=== PATIENT | female | born 1960 | race Caucasian/White ===

== ENCOUNTER → 2020-04-20 | Outpatient (CLI) | payer OTHER, SELFPAY | END | disposition home or self-care (01) | LOC: LABSPEC 10:51 | PROVIDERS: PCP Family Medicine; Referring Provider Family Medicine; Visit Provider Family Medicine | DX: Z20.828 Contact with and (suspected) exposure to other viral communicable diseases (principal) | CPT/HCPCS: 87635; C9803; G2023; U0003 ==

== ENCOUNTER → 2022-05-15 | Outpatient (CLI) | payer OTHER, SELFPAY | END | disposition home or self-care (01) | LOC: LABSPEC 15:18 | PROVIDERS: PCP Family Medicine; Referring Provider Family Medicine; Visit Provider Family Medicine | DX: R50.9 Fever, unspecified (principal); Z20.822 Contact with and (suspected) exposure to COVID-19 | CPT/HCPCS: 87635; U0003; U0005 ==

== ENCOUNTER → 2022-05-17 | Outpatient (CLI) | payer OTHER, SELFPAY | END | disposition home or self-care (01) | PROVIDERS: PCP Family Medicine; Visit Provider Family Medicine | DX: Z20.822 Contact with and (suspected) exposure to COVID-19 (principal) | CPT/HCPCS: 87635; U0003; U0005 ==

== ENCOUNTER → 2023-12-05 | Outpatient (CLI) | payer OTHER, SELFPAY ==
[2023-12-05 15:52] LABS: Bacteria 0 SEEN /hpf (None Seen); Red Blood Cells-Urine 0 SEEN /hpf (0-5)
[2023-12-05 17:56] LABS: Color, Urine Yellow (Yellow); Glucose, Dipstick Normal (Normal); Ketone-Dipstick Negative (Negative); Leukocyte Esterase-Dipstick 100 /ul (Negative); Nitrite-Dipstick Negative (Negative); Occult Blood-Urine Negative /ul (Negative); Protein-Dipstick Negative (Negative); Specific Gravity, Urine 1.025 (1.002-1.030); Urine Bilirubin Dipstick Negative (Negative); Urine Clarity Clear (Clear); Urine Urobilinogen Normal (Normal)
[2023-12-05 18:09] LABS: Calcium Oxalate Crystals Ur 1+ /hpf (<or=2+); Mucous, Urine RARE /hpf (<or=2+); Squamous Epithelial Cells - UA 0-5 SEEN /hpf (5-10); White Blood Cells 5-10 SEEN /hpf (0-5)
== END | disposition home or self-care (01) ==
PROVIDERS: PCP Family Medicine; Visit Provider Physician Assistant Surgical
DX: R30.0 Dysuria (principal)
CPT/HCPCS: 81001; 87086; 87088

== ENCOUNTER → 2024-09-04 | Outpatient (CLI) | payer OTHER, SELFPAY ==
[2024-09-04 15:53] LABS: Color, Urine Yellow (Yellow); Glucose, Dipstick Normal (Normal); Ketone-Dipstick Negative (Negative); Leukocyte Esterase-Dipstick 100 /ul (Negative); Nitrite-Dipstick Negative (Negative); Occult Blood-Urine 25 /ul (Negative); Protein-Dipstick 15 mg/dl (Negative); Specific Gravity, Urine 1.015 (1.002-1.030); Urine Bilirubin Dipstick Negative (Negative); Urine Clarity Clear (Clear); Urine Urobilinogen Normal (Normal)
[2024-09-04 16:10] LABS: Bacteria 2+ /hpf (None Seen); Mucous, Urine 1+ /hpf (<or=2+); Red Blood Cells-Urine 0-5 SEEN /hpf (0-5); Squamous Epithelial Cells - UA 0-5 SEEN /hpf (5-10); White Blood Cells 10-25 SEEN /hpf (0-5)
== END | disposition home or self-care (01) ==
PROVIDERS: Referring Provider Physician Assistant Surgical; Visit Provider Physician Assistant Surgical
DX: R30.0 Dysuria (principal)
CPT/HCPCS: 81001; 87077; 87086; 87088; 87186

== ENCOUNTER → 2025-04-01 | Outpatient (CLI) | payer OTHER, SELFPAY ==
--- OUTSIDE RECORDS SUMMARY | 2025-04-01 12:49 | XMS RPT_ITS | CCD ---
Author Organization [facility] Care Team Providers Care Sanitation Manager Name Role Phone Dr. Hemal Cortez Primary Care Provider Dr. Hemal Cortez Referring Provider WANDY Girard Attending Provider Jose MCGHEE, Hemal Bradshaw Primary Care Provider Hemal Garcia MD Primary Care Provider Cj Gann MD Primary Care Provider [phone] CINDI STOVER Referring Unavailable CJ GANN Primary Care Unavailable NIURKA FRANCOIS Attending Unavailable WISWELL NIURKA Referring Unavailable GARCIA HEMAL K Primary Care Unavailable WISWELL, NIURKA Referring Unavailable GARCIA HEMAL K Primary Care Unavailable NIURKA FRANCOIS Attending Unavailable JOSE HEMAL K Primary Care Unavailable Sergei Girard Attending Unavailable Chelsea Kirkland Primary Care Unavailable Chelsea Kirkland Referring Unavailable Chelsea Kirkland Primary Care Unavailable Sergei Girard Attending Unavailable Sergei Girard Referring Unavailable Sergei Girard Attending Unavailable Jaxon SABA, Sergei Attending Unavailable Chelsea Kirkland Primary Care Unavailable Chelsea Kirkland Referring Unavailable Ashley Marino Attending Unavailable Sergei Girard Attending Provider [phone] Allergies Allergy Classification Reported Allergen(s) Allergy Type Date of Onset Reaction(s) Facility (6 sources) Grass pollen; Translations: [GRASS POLLEN] Propensity to adverse reactions 5 Intolerance [facility] Work Phone: (6 sources) Pollen; Translations: [POLLEN] Propensity to adverse reactions 5 Intolerance [facility] (6 sources) Ragweed; Translations: [RAGWEED] Propensity to adverse reactions 5 Intolerance [facility] (1 source) Nitrofurantoin Drug Allergy 11-27-202 4 [facility] Repository (1 source) Nitrofurantoin Drug Allergy 5 Other [facility] Comment on above: headache Medications Current Medications Medication Drug Class(es) Dates Sig (Normalized) Sig (Original) Loratadine (5 sources) LORATADINE (CLAR ITIN ORAL) Take by mouth. Active LORATADINE (CLAR ITIN ORAL) Take by mouth. 0 Active nitrofurantoin, macrocrystals 25 mg / nitrofurantoin, monohydrate 75 mg oral capsule (4 sources) Nitrofuran Antibacterial Start: 04-01-2025 take 1 capsule by mouth every twelve hours at mealtime Nitrofurantoin Monohyd/M-Cryst 100 mg capsule Active 1 NMA PO Q12H 14 April 01, 2025 12:00am April 07, 2025 12:00am administer with a meal/food; swallow whole; do not open, crush, dissolve , or chew Start: 09-04-2024 End: 09-11-2024 take 1 capsule by mouth every twelve hours at mealtime Nitrofurantoin Monohyd/M-Cryst 100 mg capsule Discontinued 1 NMA PO Q12H 14 7 September 04, 2024 1:00am September 10, 2024 1:00am September 11, 2024 1:09am administer with a meal/food; swallow whole; do not open, crush, dissolve , or chew Start: 12-05-2023 End: 12-13-2023 take 1 capsule by mouth every twelve hours at mealtime Nitrofurantoin Monohyd/M-Cryst 100 mg capsule Discontinued 1 NMA PO Q12H 14 December 06, 2023 11:47am December 12, 2023 1:00am December 13, 2023 1:04am administer with a meal/food; swallow whole; do not open, crush, dissolve , or chew Completed/Discontinued Medications Medication Drug Class(es) Dates Sig (Normalized) Sig (Original) azithromycin 250 mg oral tablet (1 source) Macrolide Antimicrobial Start: 11-03-2023 End: 12-05-2023 Azithromycin 250 mg tablet Discontinued 0 PO .COMPLEX 6 November 03, 2023 1:00am December 05, 2023 4:12pm For 250 mg dose pack: take 500 mg today (day 1), then 250 mg for 4 days (days 2-5) PO cyanocobalamin, vitamin B-12, (VITAMIN B12 ORAL) (4 sources) End: 06-18-2024 cyanocobalamin, vitamin B-12, (VITAMIN B12 ORAL) Take by mouth. 06/18/2024 Discontinued cyanocobalamin, vitamin B-12, (VITAMIN B12 ORAL) Take by mouth. Active cyanocobalamin, vitamin B-12, (VITAMIN B12 ORAL) Take by mouth. 0 Active loperamide hydrochloride 2 mg oral capsule (7 sources) Opioid Agonist Start: 09-06-2021 End: 12-05-2023 Loperamide 2 mg capsule Discontinued NMA PO September 06, 2021 1:00am December 05, 2023 4:12pm Start: 09-06-2021 Loperamide Act robert EACH PO September 06, 2021 1:00am End: 06-18-2024 loperamide HCl (LOPERAMIDE O RAL) Take by mouth. 06/18/2024 Discontinued loperamide HCl ( LOPERAMIDE ORAL) Take by mouth. Active loperamide HCl ( LOPERAMIDE ORAL) Take by mouth. 0 Active Problems Active Problems Problem Classification Problem Date Documented Date Episodic/Chronic Cancer of cervix (7 sources) Atypical squamous cells of undetermined significance on cervical Papanicolaou smear; Translations: [Atypical squamous cells of undetermined significance on cytologic smear of cervix (ASC-US)] Onset: 07-15-2018 07-15-2018 Episodic Chronic obstructive pulmonary disease and bronchiectasis (2 sources) Bronchitis, not specified as acute or chronic; Translations: [Bronchitis] Onset: 11-03-2023 11-03-2023 Episodic Diseases of mouth; excluding dental (5 sources) Aphthous ulcer of mouth; Translations: [Recurrent oral aphthae] Episodic Genitourinary symptoms and ill-defined conditions (2 sources) Dysuria; Translations: [Dysuria] Onset: 10-01-2024 12-05-2023 Episodic Hemorrhoids (5 sources) Hemorrhoids; Translations: [Unspecified hemorrhoids] 04-23-2024 Episodic Immunizations and screening for infectious disease (20 sources) Patient encounter status; Translations: [Encounter for screening for COVID-19] Onset: 09-19-2009 Resolved: 10-03-2011 Episodic Menopausal disorders (5 sources) Menopausal symptom; Translations: [Menopausal and female climacteric states] Onset: 09-19-2009 09-19-2009 Chronic Other upper respiratory infections (1 source) Sinusitis; Translations: [Chronic sinusitis, unspecified] 11-03-2023 Chronic Other upper respiratory infections (5 sources) Upper respiratory infection; Translations: [Acute upper respiratory infection, unspecified] Episodic Sexually transmitted infections (not HIV or hepatitis) (1 source) Human papilloma virus deoxyribonucleic acid test positive, high risk on vaginal specimen; Translations: [Vaginal high risk human papillomavirus (HPV) DNA test positive] 06-29-2024 Episodic Substance-related disorders (5 sources) Tobacco user; Translations: [Nicotine dependence, unspecified, uncomplicated] Onset: 10-25-2009 10-25-2009 Chronic Past or Other Problems Problem Classification Problem Date Documented Da te Episodic/Chronic Gastrointestinal hemorrhage (5 sources) Rectal hemorrhage; Translations: [Hemorrhage of anus and rectum] Onset: 08-16-2011 08-16-2011 Episodic Nonmalignant breast conditions (5 sources) Solitary cyst of breast; Translations: [Solitary cyst of unspecified breast] Onset: 03-26-2006 Resolved: 10-23-2012 10-23-2012 Episodic Results Test Name Value Interpretation Reference Range Facility Urine Cultureon 09-06-2024 [facility] Escherichia coli Okay Count >100,000 Escherichia coli: REACTION Ampicillin Islt JOE >=32 Ampicillin+Sulbac Islt JOE 16 I ceFAZolin Islt JOE <=4 S Cefepime Islt JOE <=0.12 S cefTRIAXone Islt JOE <=0.25 S Ciprofloxacin Islt JOE 1 R B-Lactamase Extended Susc Islt NEG Gentamicin Islt JOE >=16 R Imipenem Islt JOE <=0.25 S levoFLOXacin Islt JOE 1 I Nitrofurantoin Islt JOE <=16 S Pip+Tazo Islt JOE <=4 S Tobramycin Islt JOE 8 R TMP SMX Islt JOE >=320 R Normal [facility] Comment on above: Performed By: #### M 100.2200, L400.0001 #### [facility] Laboratory [facility] [place], [address] Urgent Care Visit Reporton 1 11-04-2023 Urgent Care Visit Report [facility] [address], [address] [place] [address] OFFICE VISIT Date of Service: 09/04/24 MR#: [id number] Acct: [id number] Name: ROCKY KIRAN Rep #: [id number] : 1960 Provider: WANDY Gandara Age/Sex: 64/F Location: [facility] Status: Signed Intake Vital Signs 12/05/23 15:13 09/04/24 12:52 Height 5 ft 1 in Weight: 149 lb BMI 28.1 BP 128/86 H 120/76 Blood Pressure Location Lt brachial Lt brachial Position Sitting Sitting Respiration 16 12 Pulse 104 H 72 Pulse Source Monitor Monitor Temp 98.2 F 97.7 F L Temp Source Temporal Oral Pulse Oximetry (%) 98 97 Oxygen Delivery Method room air Intake Visit Reasons: Urinary tract infection Allergies No Known Allergies Allergy (Verified 09/04/24 12:54) PFS Medical History Encounter for screening for COVID-19 URI (upper respiratory infection) Family History Mother Cancer Father Cancer Social History Smoking Status: Current every day smoker Tobacco: How many years used: 20 alcohol intake: current alcohol intake frequency: 0-2 drinks per day HPI HPI Details: ROCKY KIRAN, is a 64 F who presents to the office today for complaint of dysuria and increasing urgency/frequency for the past 2 days. Patient states that the symptoms are similar to the last time that she had a UTI. Patient denies fever, chills, sweats. No nausea, vomiting, diarrhea. No hemoptysis, shortness of breath or difficulty breathing. No pelvic or abdominal pain. No other associated symptoms or alleviating/aggravati ng factors. ROS Const Constitutional: Positive for other (ROS negative x6 except what was placed in HPI) Exam Const General: cooperative and healthy appearing Resp Effort Inspection: normal respiratory effort Auscultation: Bilateral: Clear to Auscultation Cardio Rate: regular rate Rhythm: regular rhythm GI Auscultation: normal bowel sounds General: No CVA tenderness Psych Appearance: grossly normal Mental Status: mental status grossly normal Coding Level of Care Code Off vis,est,level 3 Diagnoses Dysuria R30.0 Assessment and Plan Assessment and Plan (1) Dysuria: Status: Acute Plan: Macrobid as prescribed today. Encouraged to get plenty of rest, drink lots of clear liquids, and use Tylenol or Ibuprofen (unless contraindicated) for fever and comfort. Patient also educated on other symptomatic management techniques. To be seen in 7-10 days if no improvement; sooner if worsening of symptoms. Patient advised of potential red flags and when appropriate to report to the ED. Patient verbalized understanding and agreement with all the above. 09/04/24 1258 Date Sergei Tipton Signature: Date (if applicable) CC: Normal [facility] Urinalysis, Completeon 09-04 BACTERIA 2+ /hpf Normal None Seen [facility] Comment on above: Order Comment: CLEAN CATCH Performed By: #### M 100.2200, L400.0001 #### [facility] [address] [place], [address] EPI,SQUAMOUS 0-5 SEEN Normal 5-10 [facility] Comment on above: Order Comment: CLEAN CATCH Performed By: #### M 100.2200, L400.0001 #### [facility] [address] [place], [address] Mucus Ql (Urine sed) 1+ /hpf Normal [facility] Comment on above: Order Comment: CLEAN CATCH Performed By: #### M 100.2200, L400.0001 #### [facility] [address] [place], [address] RBC 0-5 SEEN Normal 0-5 [facility] Comment on above: Order Comment: CLEAN CATCH Performed By: #### M 100.2200, L400.0001 #### [facility] [address] [place], [address] WBC 10-25 SEEN Normal 0-5 [facility] Comment on above: Order Comment: CLEAN CATCH Performed By: #### M 100.2200, L400.0001 #### [facility] [address] [place], [address] SURGICAL PATHOLOGYOrdered By : Graham Steinberg on 06-30-2024 Case Report Surgical Pathology Report Case: [id number] Authorizing Provider: Niurka Francois MD Collected: 06/29/2024 03:56 PM Ordering Location: OB/Gynecology Received: 06/29/2024 04:44 PM Pathologist: Graham Steinberg MD Specimens: A) - Endocervix, Curettings, ECC B) - Cervix, Biopsy, 12 [facility] Work Phone: Clinical History y8lifLEsHDAfh6eaVKEl b PQoKtPvJpYzJfIpGoo6NK XakkW7Muq7PAFrIVlcwF9 zOVFpDWmeH0bimoIrqUKr CYIoEMo7iC2bsPdfqO3eG kLwVwGaILKDJ2tSEFPba7 FrqBy4RAWTHIMjgNFiPF2 = [facility] Work Phone: FINAL DIAGNOSIS j9kzjQCfKKWajJHrJVfe M gazntHyEUTqyBAgY5Dvry klOIfpFV2sUN6gtNkjjXT xhQOqEIMdNyOyj4efd246 uVJay2maHDETwvehhAi4x WeoF80py6A0CezvD89sxJ GwXQS3LUHpXDKohESbZMI nVAI5ZMAwzRMeE9srPAVo TS2ospeyNPofRTmsXQIpu GW1YXEaqLCcJ4TfTZXjEY tfWEQwoxb8GnJzXd7rkCB yeTcyMFxwYXJkXHBsYWlu YZEpZwFesLQeDWRhUM8vZ I0zv9GoesDqwYqbA2VkZU A2TYnxIbvyRDXoPaNqeVM kDS2dYLYsqfdweoHkqEJm lB15nrZnusIsTG2bn3Xqs uMiA8RpILjkIB8nlVqxty HqcYb4hAWtzZHeYswaGKZ ccGFyXHBhclxiIEIuIENl oeDehYdcODWcSFT9UENtI EFwr7ZkuHpbjHZnOBYcPK ZtboRxTH3QWI3oF81ck3G 8EH0yaBVioLJjf4RdZquz YXJccGFyfQ== [facility] Work Phone: Gross Description d7bglHFtUEAbmAAZCPU0 M ZTzOT7zqMnjuUl5jRweQM QeyvK8ePRxKCdwt1dwNSA 6y0ssmaKTFwviISClFD8a MXnwUWMtTE8xIsXhJCQvM mYxXHBhcGVydzEyMjQwXH TduGYmuMP3RUZeJW1djur rDUppCJmoCYEybkA3XTOw uIUpR0RmEVQcZD4lmqmaQ YN9QHUYSgdiXy1rwMYetF tcZjFcZmNoYXJzZXQwXGZ mc2juseYMqsafdFf1jQ4D VIKhX4JjYR4Vx0oxIUTga RTfTYG3QIcpz4giUDpkPT N9UXOwGYUmLXFkAS7FJgO zUMumYYhnMYP5AoW2NYm2 FBMVBYFkVSB2Lod9VnVwR Un5WWztBDwmtDLlFSUrOL QyLXNvLMitgbW1j7unIAK koUFnAZP6GMqmz1mvVQki IHT2YBEvZaBcNNFjJB9DP tYjBCydERfkKUC6TqQ5YO n9PFRDYlCnTuWmIJnlOVD jORRwQEn3EZd3RYoQYyGl Gvw9JqA8JBY6XcO8BQBmD iBcXHQgMiBcXHNzIDMgXF cwgTZsVN8ioTsqZIEeXX4 BWUZnUXpnFEPjAzAySX8x SZ4zf4XschVghUtwV7GbC WV5nS4kf2njdBOjhEhxLE IgDQpccGFyZCANClxwbGF pblxsdHJjaFxmczIyXGVw kZNUAOU1RX3fDCWNBmoci HRbADOek3LfOUodjAusZL NhMzAgDQpcZnMyMCBSZWN dhIZpJDRpxyLuf5KnHSti biBhcmUgbXVsdGlwbGUgd XQyPJdjyQQdGFNxe9N6MZ TpWXRqITS3ISWeC30kzxZ uRT4mLBNhr4Y8LDMeK0pi IIidrTifOoM6mqYhYwfqg VCjCeIuaRF2JI6sHHVjLe EJn9PncMm5QTJ8Lz7lgAC rAMSlryWbusUuI8Erk2W5 oSNeWYfkPGQgD20hg1NVi 4Azk5khlOsuo1GisYBlVZ 2kyGVhWC6Uw4mlKNUuzJC cAJZ8VGsea3taIGsyUVB6 RWHvBbPnRTTrFC9LTxBhS KrfZXegWCK7AxW5RTi3IH BPVlMgIiAgNTgzNDQyMTY yVGb1FFh3PQtVLjVrOos1 BzB9IDskFYW1WZLfMhWeQ HQgMiBcXHNzIDMgXFxmbC DtPL3zcKnyPXNkVHKiMMM 9HMEuqLSLt6UyJZPuYLjr QbMxVxGRNdOBFAQ5jDtnP JEcy6WgfRnmOMNmPWlxzT FyZCANClxwbGFpblxsdHJ jaFxmczIyXGVwaWNOZXN0 CG2bTEHGLdktiCSoTOTqn 2IzMFxlcGljWHNiMzAgDQ pcZnMyMCBSZWNlaXZlZCB thrXhu1JzBJscnjIhuvYs hPKjhMzvsARfwEggK9VaB X0lRXIbcw83dYl1MRxtk7 9woSY8yCNxpBCuKRzvvbG mPSFjtllgkT5vDF53NKvr SN4jHPkuOR8wLFAdOzZLm 6UjxBf1QTQ5Rd0iuFRdKF ZmesUgacNnC3Pcq2K7zQP uIFxwYXIgDQpccGFyZFxs qWPvJWKcOPohuSIsHL6VV 4Qcm0NfBSzpxTqwFSHpv4 4orDPzIs3gvBMiJJE5BZC sZXZlbGFuZCBDbGluaWMs OHo0TIVqSUYiyPdbPFU2E Z3pWPTkEVZokJKwFRrrC7 vpWOAwOZJapBVxWW1ZYBZ hciANClxzYTMwXGVwaWNY s4BdBUFYVlDLXeUmEX0sX h0oSOD7CDl3FGVhVI0ATp dyyWdcIsWtjOCdQjG9MFB tsVAxWJY7QY6zpYtwKGKz Q7FrR6PdmzJ6LMTlhcKBS cyzRNHnBA6AVZWiHtBfRC p9 [facility] Work Phone: Performing Lab b7bkuAMwTSQsaGPoGyPu M IKoIBLcq4sjQOUtwJAdSx EwMzNcZnRuYmpcdWMxXGR nPgVzn3ahw167aYQjc2os CQVnBvE3jLLwMZXqsQLmV 960ZNEpNRjxy8wlp8MlNM YxaAWru2Z5QSZUqlklqEw 5eWncY74xk1N6LeelV6pb KFBcWGYvE3GuTI5qVPMtO xq4XEA2CIE7LTDyAZDcB3 LzTW1hSNGpnTBlFFm2k9k vqAajXDQaBHD2q4cnNDnj qjYyQJ0adw9upBz1i8vei zEgRGVmYXVsdCBQYXJhZ3 LvbPraZu4rpOg5dWpuJvx pQGF3Pzp2FA5tdm54ywd1 dSnkGTAkwmcoPzI0KRiqC KYcipyoLNy5WThxYEGhdH B2MYJsiPJfS0VqQEdhEB7 fkyd8KYD3WRkoHTSdUjY5 NDBcaGVhZGVyeTcyMFxmb 270FOP9XtOwZY6uP5Wld6 Y8iR5siECaZOTmpYAyCzA kAFSugq2xvRHzLYbwt6Al NBP5khC5jOKhpQWwGSPwP U15Qopvp5ItCpayy0EqB5 9rwGU8CTsyf2ckFI1fPsL 4ssYmTWsdn5nsyL6sTfP8 UHuqDG0gZO8dUVQowN8yy mxjXHBnYnJkcmhlYWRccG xtkzOqCt5pyXcrOGD3YEy xF4nqkH4pArR6YXreN4je vG5sWFh8ARcdvUS0PFUzg E9cEI8iphiim3smNUgrSI joPMVxzfD6fxCdKDYqoLH tI6IfaW9zUZWrOF3qfhbk d7jzHVU8DSliMQDkLDK7A mZlRBEwn2Ybfkf1DrAfb7 PdfDPiROqvI96pw960HXL rnwImX2pokCLfdrbfuRVc tsuqUDnkpaD3FONrZBIlB WluXGYxXGZzMjBcbGFuZz EwMzNcaGljaFxmMVxkYmN lNHIgJLjrG7enKqCzUhCf SSAHbXYorr5vePrhUWmwo LMcpRRgdRC6pW2mEKGfnf Sqeg8bOIMykIOApAC5KYf ngcRzW9ubiuzoDLJ1BXDq BHB1C0ydWUBNseGzBXEwE CFhwEOhQJTEFXV9KGA2NT JoPDYYWWHvGEL1BVM1LQJ wOTRccGFyXHBhclxwYXJk XHBsYWluXGYwXGZzMjRcc AkfnE3rMpZcBfDtCAneWA 3vRUSfG6xipQQfQJTfCJD jZ4nxOgZvdY5sxHqvRRyq ZjJcZnMyMFxsdHJjaCBMY LJimaK4n8E4NCjiiQCkcn xmMVxmczIwXGxhbmcxMDM uWJjsU4wcDzVmVOTdnIjw HTmjs2JnOQRzXMRgCgTqL JfmGPZ8z1H2DRtxpSNkvr ZEQnNCVP9mmDHvtwaqMJ4 ELlxwbGFpblxmMVxmczIy SDoyelzsRFViRHqwA6svC oXqAGEzaRymFRsji8RtER YxXGZzMjJccGFyfQ== [facility] Work Phone: [facility] Work Phone: [facility] 06-29-2024 CNOV Office Visit (OBGYWM ) Alona KIRAN MARCH ([id number]) 1960 F Date Time Provider Department 06/29/24 3:20 PM NIURKA FRANCOIS During your visit today, we recorded the following information about you: Blood pressure Weight 110/72 70.2 kg Niurka Francois MD 07/06/2024 8:18 AM Signed Scientific Director offered: Patient declines. Esther is a 63 year old who presents today for a colposcopy. The patient's last pap smear was LGSIL and Positive HPV from May 2024. Patient has a history of abnormal pap: Yes. The patient has had prior treatment: Colposcopy. test: n/a, post menopausal UNIVERSAL PROTOCOL / SAFETY CHECKLIST Procedure to be Performed: Colposcopy with Possible Biopsies Sign In: A Moment of CARE was completed. Personnel directly involved with the procedure wore the appropriate PPE (Personal Protective Equipment). Patient/Surrogate Stated/Verified: PATIENT VERIFIED(optional for EMERGENT procedures): Patient name, Date of , Relevant allergies, and The intended procedure Time Out Communication: Intended patient and procedure match the source documents. Consent documented and matches the intended procedure. Sign Out: SIGN OUT (optional for EMERGENT procedures): All specimen containers correctly labeled. All instruments, equipment, possible retained foreign bodies accounted for. Post-procedure follow-up management communicated and Plan of Care Visit completed when applicable. PROCEDURE: EXTERNAL GENITALIA: Normal in appearance without lesions VAGINA: Normal in appearance without lesions CERVIX: Speculum placed in vagina and excellent visualization of cervix achieved. Cervix swabbed x 3 with 3% acetic acid solution. Cervix grossly normal. Squamocolumnar junction visualized. Possible faint acetowhite changes noted 12 o'clock. BIOPSY: Done at 12:00 ECC: done HEMOSTASIS: Obtained with pressure Procedure Summary: Patient tolerated procedure well and colposcopy was adequate. ASSESSMENT: HPV effect PLAN: Specimens labeled and sent to Pathology. Will notify patient of results in 1-2 weeks. Post-procedure instructions reviewed and written material given to the patient. DO Odalys Chow Amanda, MA 06/29/2024 3:10 PM Signed YOUR RECOVERY It may take a few weeks for your cervix to heal. While your cervix heals, you may have: - Vaginal bleeding (less than a normal menstrual period) - Mild cramping - A brown-black vaginal discharge (similar to coffee grounds) which is a result of the paste used to help stop bleeding from the procedure Do NOT put anything in the vagina for 1 week after your colposcopy if your doctor does a biopsy of your cervix. This includes sex, tampons, and douches. If you have any discomfort, you may take an over the counter pain medication (motrin, advil, ibuprofen, tylenol, etc). If this does not relieve your discomfort, contact your doctor's office for a prescription strength pain medication. It is okay to wear a sanitary pad until the discharge and spotting stops. RISKS Although problems seldom occur with colposcopy, there can be some complications. You may feel faint during and shortly after the procedure as well as have some bleeding and vaginal discharge after the procedure. There is also a risk of infection after the procedure. These complications are rare and can be easily treated. You should contact you doctor is you have any of the following: - Heavy bleeding (more than your normal period) - Bleeding with clots - Severe abdominal pain - Fever (more than 100.4F) - Foul smelling vaginal discharge RESULTS If a biopsy was taken, we will have the results of your biopsy in 1-2 weeks. If you do not hear the results of your biopsy after 2 weeks, please contact your physicians office for the results. Depending on the biopsy results, your doctor will determine your follow up plan which may include further testing or treatments. STAYING HEALTHY After the procedure, you will need to see your doctor for follow up visits during the year. At these visits your doctor will check the health of your cervix with a pap smear. After three normal pap smears, your doctor will allow you to return to having exams once a year. If you have another abnormal pap smear, you may need closer follow up for longer or you may need additional treatment. By making a few lifestyle changes after the procedure, you can help protect the health of your cervix: - Have regular pelvic exams and pap smears as ordered by your doctor. - Stop smoking as smoking increases your risk of developing a cancer of the cervix - If you have more than one sexual partner, limit your number of partners and use condoms to reduce your risks of STDs. If you have any additional questions, please contact your doctor's office. Referring Provider: CINDI STOVER [[id number]] Allerg (more content not included)... Normal [facility] SURGICAL PATHOLOGYon 024 CASE REPORT Normal [facility] Comment on above: Order Comment: Speci men Type: BLOOD SPECIMEN Ordering Facility: [facility] Address: [address] [place] [address] Result Comment: Surg [facility] Pathology Report Case: [id number] Authorizing Provider: Niurka Francois MD Collected: 06/29/2024 03:56 PM Ordering Location: OB/Gynecology Received: 06/29/2024 04:44 PM Pathologist: Graham Steinberg MD Specimens: A) - Endocervix, Curettings, ECC B) - Cervix, Biopsy, 12 Performed By: #### 2 4331-1 #### [facility] CLIA [id number] [address] [place] [address] [place] [facility] CLIA [id number] [place] [address] [place] #### [id number] #### [facility] CLIA [id number] [address] [place] [address] [place] CLINICAL HISTORY Positive Normal [facility] Comment on above: Order Comment: Speci men Type: BLOOD SPECIMEN Ordering Facility: [facility] Address: [address] [place] [address] Performed By: #### 2 4331-1 #### [facility] CLIA [id number] [address] [place] [address] [place] [facility] CLIA [id number] [address] [place] [address] [place] #### [id number] #### [facility] CLIA [id number] [address] [place] [address] [place] FINAL DIAGNOSIS Normal [facility] Comment on above: Order Comment: Speci men Type: BLOOD SPECIMEN Ordering Facility: [facility] Address: [address] [place] [address] Result Comment: A. E ndocervix, curettage: ---Benign squamous and endocervical glandular epithelium. B. Cervix, at 12:00, biopsy: ---Benign squamous mucosa. Performed By: #### 2 4331-1 #### [facility] CLIA [id number] [address] [place] [address] [place] [facility] CLIA [id number] [address] [place] [address] [place] #### [id number] #### [facility] CLIA [id number] [address] [place] [address] [place] FINAL PERFORMING LAB Normal [facility] Comment on above: Order Comment: Speci men Type: BLOOD SPECIMEN Ordering Facility: [facility] Address: [address] [place] [address] Result Comment: Diag nostic interpretation performed at [facility], [address] [place] [address] CLIA# [id number] Bleach Mixer: David Olvera M.D. Performed By: #### 2 4331-1 #### [facility] CLIA [id number] [address] [place] [address] [place] [facility] [facility] CLIA [id number] [address] [place] [address] [place] #### 3016-3 #### [facility] CLIA [id number] [address] [place] [address] [place] GROSS DESCRIPTION Normal [facility] Comment on above: Order Comment: Speci men Type: BLOOD SPECIMEN Ordering Facility: [facility] Address: [address] [place] [address] Result Comment: A. E ndocervix, Curettings Received in formalin are multiple kong-white, soft feathery segments of tissue aggregating to 0.7 x 0.5 x <0.1 cm. Totally submitted in one cassette. B. Cervix, Biopsy Received in formalin are multiple pieces of kong-white, soft tissue aggregating to 0.8 x 0.1 x 0.1 cm. Totally submitted in one cassette. Gross examination performed at [facility], [address] [place] [address] FFS 06/29/2024 9:52 PM Performed By: #### 2 4331-1 #### [facility] CLIA [id number] [address] [place] [address] [place] [facility] [id number] [address] [place] [address] [place] #### 3016-3 #### [facility] CLIA [id number] [address] [place] [address] [place] CBC panel Auto (Bld)on 06-01 Erythrocyte distribution width (RBC) [Ratio] 12.8 % Normal 11.5-15.0 [facility] Comment on above: Order Comment: Speci men Type: BLOOD SPECIMEN Ordering Facility: [facility] Address: [address] [place] [address] Performed By: #### 2 4331-1 #### [facility] CLIA [id number] [address] [place] [address] [place] [facility] [id number] [address] [place] [address] [place] #### 3016-3 #### [facility] CLIA [id number] [address] [place] [address] [place] Hematocrit (Bld) [Volume fraction] 42.9 % Normal 36.0-46.0 [facility] Comment on above: Order Comment: Speci men Type: BLOOD SPECIMEN Ordering Facility: [facility] Address: [address] [place] [address] Performed By: #### 2 4331-1 #### [facility] CLIA [id number] [address] [place], [place] [address] [place] [facility] CLIA [id number] [address] [place] [address] [place] #### 3016-3 #### [facility] CLIA [id number] [address] [place] [address] [place] Hemoglobin (Bld) [Mass/Vol] 13.9 g/dL Normal 11.5-15.5 [facility] Comment on above: Order Comment: Speci men Type: BLOOD SPECIMEN Ordering Facility: [facility] Address: [address] [place] [address] Performed By: #### 2 4331-1 #### [facility] CLIA [id number] [address] [place] [address] [place] [facility] [id number] [address] [place] [address] [place] #### 3016-3 #### [facility] CLIA [id number] [address] [place] [address] [place] MCH (RBC) [Entitic mass] 30.2 pg Normal 26.0-34.0 [facility] Comment on above: Order Comment: Speci men Type: BLOOD SPECIMEN Ordering Facility: [facility] Address: [address] [place] [address] Performed By: #### 2 4331-1 #### [facility] CLIA [id number] [address] [place] [address] [place] [facility] CLIA [id number] [address] [place] [address] [place] #### 3016-3 #### [facility] CLIA [id number] [address] [place] [address] [place] MCHC (RBC) [Mass/Vol] 32.4 g/dL Normal 30.5-36.0 [facility] Comment on above: Order Comment: Speci men Type: BLOOD SPECIMEN Ordering Facility: [facility] Address: [address] [place], [place] [address] Performed By: #### 2 4331-1 #### [facility] CLIA [id number] [address] [place] [address] [place] [facility] CLIA [id number] [address] [place] [address] [place] #### 3016-3 #### [facility] CLIA [id number] [address] [place] [address] [place] MCV (RBC) [Entitic vol] 93.1 fL Normal 80.0-100.0 [facility] Comment on above: Order Comment: Speci men Type: BLOOD SPECIMEN Ordering Facility: [facility] Address: [address] [place] [address] Performed By: #### 2 4331-1 #### [facility] CLIA [id number] [address] [place] [address] [place] [facility] CLIA [id number] [address] [place] [address] [place] #### 3016-3 #### [facility] CLIA [id number] [address] [place] [address] [place] Nucleated RBC (Bld) [#/Vol] 10*3/uL Normal <0.01 [facility] Comment on above: Order Comment: Speci men Type: BLOOD SPECIMEN Ordering Facility: [facility] Address: [address] [place], [place] [address] Performed By: #### 2 4331-1 #### [facility] CLIA [id number] [address] [place] [address] [place] [facility] CLIA [id number] [address] [place] [address] [place] #### 3016-3 #### [facility] CLIA [id number] [address] [place] [address] [place] Platelet mean volume (Bld) [Entitic vol] 9.6 fL Normal 9.0-12.7 [facility] Comment on above: Order Comment: Speci men Type: BLOOD SPECIMEN Ordering Facility: [facility] Address: [address] [place] [address] Performed By: #### 2 4331-1 #### [facility] CLIA [id number] [address] [place] [address] [place] [facility] CLIA [id number] [address] [place] [address] [place] #### 3016-3 #### [facility] CLIA [id number] [address] [place] [address] [place] Platelets (Bld) [#/Vol] 255 10*3/uL Normal 150-400 [facility] Comment on above: Order Comment: Speci men Type: BLOOD SPECIMEN Ordering Facility: [facility] Address: [address] [place] [address] Performed By: #### 2 4331-1 #### [facility] CLIA [id number] [address] [place] [address] [place] [facility] CLIA [id number] [address] [place] [address] [place] #### 3016-3 #### [facility] CLIA [id number] [address] [place] [address] [place] RBC (Bld) [#/Vol] 4.61 10*6/uL Normal 3.90-5.20 [facility] Comment on above: Order Comment: Speci men Type: BLOOD SPECIMEN Ordering Facility: [facility] Address: [address] [place] [address] Performed By: #### 2 4331-1 #### [facility] CLIA [id number] [address] [place] [address] [place] [facility] CLIA [id number] [address] [place] [address] [place] #### 3016-3 #### [facility] CLIA [id number] [address] [place] [address] [place] WBC (Bld) [#/Vol] 8.33 10*3/uL Normal 3.70-11.00 [facility] Comment on above: Order Comment: Speci men Type: BLOOD SPECIMEN Ordering Facility: [facility] Address: [address] [place] [address] Performed By: #### 2 4331-1 #### [facility] CLIA [id number] [address] [place] [address] [place] [facility] CLIA [id number] [address] [place] [address] [place] #### 3016-3 #### [facility] CLIA [id number] [address] [place] [address] [place] CNCOon 06-01-2024 [facility] HNO ID: [id number] Author: COORDINATOR, MAMMOGRAPHY, ? Service: ? Author Type: Physician Type: Letter Filed: 06/01/2024 10:32 Note Text: June 01, 2024 PID: [id number] Alona Kiran [address] [place] [address] Dear Ms. Kiran, We are pleased to inform you that the results of your recent breast imaging exam on 06/01/2024 are normal. Breast tissue can be either dense or not dense. Dense tissue makes it harder to find breast cancer on a mammogram and also raises the risk of developing breast cancer. Your breast tissue is dense. In some people with dense tissue, other imaging tests in addition to a mammogram may help find cancers. Talk to your healthcare provider about breast density, risks for breast cancer, and your individual situation. Early detection of cancer is very important. We also understand recommendations regarding breast cancer screening are controversial. Please discuss with your primary care provider which strategy is best for you and whether a mammogram is right for you. Your imaging studies and report will be kept on file at [facility] as part of your permanent medical record and are available for your continuing care. Thank you for allowing us to help in meeting your health care needs. Sincerely, Dr. Contreras Interpreting Radiologist (Normal over 40) Normal [facility] Comprehensive metabolic 2000 panelon 06-01-2024 Albumin [Mass/Vol] 4.4 g/dL Normal 3.9-4.9 [facility] Comment on above: Order Comment: Gisele monique Type: BLOOD SPECIMEN Ordering Facility: [facility] Address: [address] [place] [address] Performed By: #### 2 4323-8 #### [facility] [id number] [address] [place] [address] [place] ALP [Catalytic activity/Vol] 100 U/L Normal 34-123 [facility] Comment on above: Order Comment: Gisele monique Type: BLOOD SPECIMEN Ordering Facility: [facility] Address: [address] [place] [address] Performed By: #### 2 4323-8 #### [facility] [id number] [address] [place] [address] [place] ALT [Catalytic activity/Vol] 10 U/L Normal 7-38 [facility] Comment on above: Order Comment: Gisele monique Type: BLOOD SPECIMEN Ordering Facility: [facility] Address: [address] [place] [address] Performed By: #### 2 4323-8 #### [facility] CLIA [id number] [address] [place] [address] [place] Anion gap [Moles/Vol] 13 mmol/L Normal 8-15 [facility] Comment on above: Order Comment: Speci men Type: BLOOD SPECIMEN Ordering Facility: [facility] Address: [address] [place] [address] Performed By: #### 2 4323-8 #### [facility] CLIA [id number] [address] [place] [address] [place] AST [Catalytic activity/Vol] 11 U/L Low 13-35 [facility] Comment on above: Order Comment: Speci men Type: BLOOD SPECIMEN Ordering Facility: [facility] Address: [address] [place] [address] Performed By: #### 2 4323-8 #### [facility] CLIA [id number] [address] [place] [address] [place] Bilirubin [Mass/Vol] 0.3 mg/dL Normal 0.2-1.3 [facility] Comment on above: Order Comment: Speci men Type: BLOOD SPECIMEN Ordering Facility: [facility] Address: [address] [place] [address] Performed By: #### 2 4323-8 #### [facility] CLIA [id number] [address] [place] [address] [place] Calcium [Mass/Vol] 9.6 mg/dL Normal 8.5-10.2 [facility] Comment on above: Order Comment: Speci men Type: BLOOD SPECIMEN Ordering Facility: [facility] Address: [address] [place] [address] Performed By: #### 2 4323-8 #### [facility] CLIA [id number] [address] [place] [address] [place] Chloride [Moles/Vol] 102 mmol/L Normal 98-107 [facility] Comment on above: Order Comment: Speci men Type: BLOOD SPECIMEN Ordering Facility: [facility] Address: [address] [place], [place] [address] Performed By: #### 2 4323-8 #### [facility] CLIA [id number] [address] [place] [address] [place] CO2 [Moles/Vol] 22 mmol/L Normal 22-30 [facility] Comment on above: Order Comment: Speci men Type: BLOOD SPECIMEN Ordering Facility: [facility] Address: [address] [place] [address] Performed By: #### 2 4323-8 #### [facility] CLIA [id number] [address] [place] [address] [place] Creatinine [Mass/Vol] 0.73 mg/dL Normal 0.58-0.96 [facility] Comment on above: Order Comment: Speci men Type: BLOOD SPECIMEN Ordering Facility: [facility] Address: [address] [place] [address] Performed By: #### 2 4323-8 #### [facility] CLIA [id number] [address] [place] [address] [place] Creatinine and Glomerular filtration rate.predicted panel (S/P/Bld) 93 mL/min/1.73m??? Normal >=60 [facility] Comment on above: Order Comment: Speci men Type: BLOOD SPECIMEN Ordering Facility: [facility] Address: [address] [place] [address] Result Comment: Katalina mated Glomerular Filtration Rate (eGFR) is calculated using the 2020 CKD-EPI creatinine equation. This equation utilizes serum creatinine, sex, and age as parameters. The creatinine assay has traceable calibration to isotope dilution-mass spectrometry. Refer to KDIGO guidelines for clinical interpretation. In patients with unstable renal function, e.g. those with acute kidney injury, the eGFR may not accurately reflect actual GFR. Performed By: #### 2 4323-8 #### [facility] CLIA [id number] [address] [place] [address] [place] Glucose [Mass/Vol] 104 mg/dL High 74-99 [facility] Comment on above: Order Comment: Gisele monique Type: BLOOD SPECIMEN Ordering Facility: [facility] Address: [address] [place] [address] Result Comment: The [place] [employer] (ADA) provides guidance for cutoff values for fasting glucose and random glucose. The ADA defines fasting as no caloric intake for at least 8 hours. Fasting plasma glucose results between 100 to 125 mg/dL indicate increased risk for diabetes (prediabetes). Fasting plasma glucose results greater than or equal to 126 mg/dL meet the criteria for diagnosis of diabetes. In the absence of unequivocal hyperglycemia, results should be confirmed by repeat testing. In a patient with classic symptoms of hyperglycemia or hyperglycemic crisis, random plasma glucose results greater than or equal to 200 mg/dL meet the criteria for diagnosis of diabetes. Reference: Standards of Medical Care in Diabetes 2016, [place] [employer]. Diabetes Care. 2016.39(Suppl 1). Performed By: #### 2 4323-8 #### [facility] CLIA [id number] [address] [place] [address] [place] Potassium [Moles/Vol] 4.6 mmol/L Normal 3.7-5.1 [facility] Comment on above: Order Comment: Gisele monique Type: BLOOD SPECIMEN Ordering Facility: [facility] Address: [address] [place] [address] Performed By: #### 2 4323-8 #### [facility] CLIA [id number] [address] [place] [address] [place] Protein [Mass/Vol] 6.8 g/dL Normal 6.3-8.0 [facility] Comment on above: Order Comment: Gisele monique Type: BLOOD SPECIMEN Ordering Facility: [facility] Address: [address] [place], [place] [address] Performed By: #### 2 4323-8 #### [facility] CLIA [id number] [address] [place] [address] [place] Sodium [Moles/Vol] 137 mmol/L Normal 136-144 [facility] Comment on above: Order Comment: Gisele monique Type: BLOOD SPECIMEN Ordering Facility: [facility] Address: [address] [place] [address] Performed By: #### 2 4323-8 #### [facility] CLIA [id number] [address] STATES OF [facility] Urea nitrogen [Mass/Vol] 13 mg/dL Normal 7-21 [facility] Comment on above: Order Comment: Speci men Type: BLOOD SPECIMEN Ordering Facility: [facility] Address: [address] [place] [address] Performed By: #### 2 4323-8 #### [facility] CLIA [id number] [address] [place] DBT Breast - bilateral scree arnold 06-01-2024 IMPRESSION: NEGATIVE There is no mammographic evidence of malignancy. A 1 year screening mammogram is recommended. Ji linton/joanna:06/01/2024 10:32:45 Java Web Engineer(s): RT Mahad(Lashell)(M), [facility] [place] letter sent: Normal over 40 Mammogram BI-RADS: Category 1: Negative Multiple national specialty organizations have released breast cancer screening guidelines for women at average risk for developing breast cancer - guidelines that are based on both evidence and opinion, yet differ on when to start and how often to screen for breast cancer. With representation from Breast Imaging, Internal Medicine, Women's Health, Family Medicine, and Medical/Surgical Oncology, the [facility] has carefully reviewed the data and reached the following consensus: 1) All women should engage in shared decision-making with their providers to decide when to start and how often to screen; 2) All women should have the opportunity to start screening mammography at age 40; 3) For women ages 45-55, we recommend annual screening mammograms; 4) For women ages 55 and over, we support both the transition from an annual to a biennial interval if this aligns more with patient's values and preferences, or continuation with annual screening; 5) All women should discuss with their providers when to stop screening mammograms. Side Laster Staple: Joanna Transcribe Date/Time: Jun 01 2024 8:44A Dictated by: JI CONTRERAS MD This examination was interpreted and the report reviewed and electronically signed by: JI CONTRERAS MD on Jun 01 2024 10:32AM [facility] DIVISION OF RADIOLOGY * * *Final Report* * * DATE OF EXAM: Jun 01 2024 8:56AM [facility] 0582 - DO SCREENING W MARILYN / PROCEDURE REASON: Encounter for screening mammogram for breast cancer * * * * Physician Interpretation * * * * RESULT: #[id number] - DO SCREENING W MARILYN BILATERAL DIGITAL SCREENING MAMMOGRAM TOMOSYNTHESIS WITH CAD: 06/01/2024 HISTORY: /Screening Mammogram with MARILYN - patient reports NO breast symptoms /priors available for comparison Encounter For Screening Mammogram For Breast Cancer. RESULT: TECHNIQUE: The study was acquired using full field digital technology and interpreted from soft copy. Digital Breast Tomosynthesis (DBT) images were obtained and used to assist in the interpretation of this examination. Current study was also evaluated with a Computer Aided Detection (CAD). Comparison is made to exams dated: 11/15/2021 mammogram - and 07/23/2019 mammogram - [facility]. The breasts are heterogeneously dense, which may obscure small masses. No significant masses, calcifications, or other findings are seen in either breast. There has been no significant interval change. DIVISION OF RADIOLOGY Provider, [facility] - 06/01/2024 * * *Final Report* * * DATE OF EXAM: Jun 01 2024 8:56AM [facility] 0582 - DO SCREENING W MARILYN / PROCEDURE REASON: Encounter for screening mammogram for breast cancer * * * * Physician Interpretation * * * * RESULT: #[id number] - DO SCREENING W MARILYN BILATERAL DIGITAL SCREENING MAMMOGRAM TOMOSYNTHESIS WITH CAD: 06/01/2024 HISTORY: /Screening Mammogram with MARILYN - patient reports NO breast symptoms /priors available for comparison Encounter For Screening Mammogram For Breast Cancer. RESULT: TECHNIQUE: The study was acquired using full field digital technology and interpreted from soft copy. Digital Breast Tomosynthesis (DBT) images were obtained and used to assist in the interpretation of this examination. Current study was also evaluated with a Computer Aided Detection (CAD). Comparison is made to exams dated: 11/15/2021 mammogram - and 07/23/2019 mammogram - [facility]. The breasts are heterogeneously dense, which may obscure small masses. No significant masses, calcifications, or other findings are seen in either breast. There has been no significant interval change. IMPRESSION IMPRESSION: NEGATIVE There is no mammographic evidence of malignancy. A 1 year screening mammogram is recommended. Ji linton/joanna:06/01/2024 10:32:45 Java Web Engineer(s): RT Mahad(R)(M), letter sent: Normal over 40 Mammogram BI-RADS: Category 1: Negative Multiple national specialty organizations have released breast cancer screening guidelines for women at average risk for developing breast cancer - guidelines that are based on both evidence and opinion, yet differ on when to start and how often to screen for breast cancer. With representation from Breast Imaging, Internal Medicine, Women's Health, Family Medicine, and Medical/Surgical Oncology, the [facility] has carefully reviewed the data and reached the following consensus: 1) All women should engage in shared decision-making with their providers to decide when to start and how often to screen; 2) All women should have the opportunity to start screening mammography at age 40; 3) For women ages 45-55, we recommend annual screening mammograms; 4) For women ages 55 and over, we support both the transition from an annual to a biennial interval if this aligns more with patient's values and preferences, or continuation with annual screening; 5) All women should discuss with their providers when to stop screening mammograms. Side Laster Staple: Joanna Transcribe Date/Time: Jun 01 2024 8:44A Dictated by: JI CONTRERAS MD This examination was interpreted and the report reviewed and electronically signed by: JI CONTRERAS MD on Jun 01 2024 10:32AM EST [facility] Radiology Study observation (narrative) [facility] DBT Breast - bilateral scree ningOrdered By: [facility] Provider on 06-01-2024 [facility] Lipid 1996 panelon 4 Cholesterol [Mass/Vol] 216 mg/dL High <200 [facility] Comment on above: Order Comment: Speci men Type: BLOOD SPECIMEN Ordering Facility: [facility] Address: [address] [place] [id number] Result Comment: <200 mg/dL, Desirable 200-239 mg/dL, Borderline high >239 mg/dL, High Performed By: #### 2 4331-1 #### [facility] CLIA [id number] [address] [place] [address] [place] [facility] CLIA [id number] [address] [place] [address] [place] RAINER #### 3016-3 #### [facility] CLIA [id number] [address] [place] [address] [place] Cholesterol in HDL [Mass/Vol] 71 mg/dL Normal >39 [facility] Comment on above: Order Comment: Speci men Type: BLOOD SPECIMEN Ordering Facility: [facility] Address: [address] [place] [address] Result Comment: 40-5 9 mg/dL, Acceptable >59 mg/dL, High: Negative risk factor for coronary heart disease <40 mg/dL, Low: Positive risk factor for coronary heart disease Performed By: #### 2 4331-1 #### [facility] CLIA [id number] [address] [place] [address] [place] [facility] CLIA [id number] [address] [place] [address] [place] #### 3016-3 #### [facility] CLIA [id number] [address] [place], [place] [address] [place] Cholesterol in LDL [Mass/Vol] 126 mg/dL High <100 [facility] Comment on above: Order Comment: Speci men Type: BLOOD SPECIMEN Ordering Facility: [facility] Address: [address] [place], [place] [id number] Result Comment: <100 mg/dL, Optimal 100-129 mg/dL, Near optimal/above optimal 130-159 mg/dL, Borderline high 160-189 mg/dL, High >189 mg/dL, Very high Secondary prevention optimal LDL Cholesterol levels are recommended to be < 70 mg/dL Performed By: #### 2 4331-1 #### [facility] CLIA [id number] [facility] [place] [address] [place] [facility] CLIA [id number] [address] [place] [address] [place] #### 3016-3 #### [facility] CLIA [id number] [facility] [place] [address] [place] Cholesterol in LDL/Cholesterol in HDL [Mass ratio] 1.77 {ratio} Normal <2.54 [facility] Comment on above: Order Comment: Speci men Type: BLOOD SPECIMEN Ordering Facility: [facility] Address: [address] [place] [address] Result Comment: Elias holt: 1. National Cholesterol Education Program ATP III Guideline At-A-Glance Quick Desk Reference: National Heart, Lung, and Blood [place]. National Institutes of Health. 2001: NIH Publication No. 01-3305. 2. An International Atherosclerosis Society position paper: global recommendations for the management of dyslipidemia: executive summary, Atherosclerosis. 2014: 232(2):410-413. Performed By: #### 2 4331-1 #### [facility] CLIA [id number] [address] [place] [address] [place] [facility] [id number] [address] [place] [address] [place] #### 3016-3 #### [facility] CLIA [id number] [address] [place] [address] [place] Cholesterol in VLDL [Mass/Vol] 19 mg/dL Normal <30 [facility] Comment on above: Order Comment: Speci men Type: BLOOD SPECIMEN Ordering Facility: [facility] Address: [address] [place] [address] Performed By: #### 2 4331-1 #### [facility] CLIA [id number] [address] [place] [address] [place] [facility] CLIA [id number] 1 [place] [address] [place] #### 3016-3 #### [facility] CLIA [id number] [address] [place] [address] [place] Cholesterol non HDL [Mass/Vol] 145 mg/dL High <130 [facility] Comment on above: Order Comment: Speci men Type: BLOOD SPECIMEN Ordering Facility: [facility] Address: [address] [place] [address] Result Comment: <130 mg/dL, Optimal 130-159 mg/dL, Near optimal/above optimal 160-189 mg/dL, Borderline high 190-219 mg/dL, High >219 mg/dL, Very high Secondary prevention optimal non HDL Cholesterol levels are recommended to be <100 mg/dL Performed By: #### 2 4331-1 #### [facility] CLIA [id number] [address] [place] [address] [place] [facility] CLIA [id number] [address] [place] [address] [place] #### 3016-3 #### [facility] CLIA [id number] [address] [place] [address] [place] Cholesterol.total/Cho lesterol in HDL [Mass ratio] 3.04 {ratio} Normal <5.10 [facility] Comment on above: Order Comment: Speci men Type: BLOOD SPECIMEN Ordering Facility: [facility] Address: [address] [place] [address] Performed By: #### 2 4331-1 #### [facility] CLIA [id number] [address] [place] [address] [place] [facility] CLIA [id number] [address] [place] [address] [place] #### 3016-3 #### [facility] CLIA [id number] [address] [place] [address] [place] FASTING TIME 13 hrs Normal [facility] Comment on above: Order Comment: Speci men Type: BLOOD SPECIMEN Ordering Facility: [facility] Address: [address] [place] [address] Performed By: #### 2 4331-1 #### [facility] CLIA [id number] [address] [place] [address] [place] [facility] CLIA [id number] [address] [place] [address] [place] #### 3016-3 #### [facility] CLIA [id number] [address] [place] [address] [place] Triglyceride [Mass/Vol] 95 mg/dL Normal <150 [facility] Comment on above: Order Comment: Speci men Type: BLOOD SPECIMEN Ordering Facility: [facility] Address: [address] [place] [address] Result Comment: <150 mg/dL, Normal 150-199 mg/dL, Borderline high 200-499 mg/dL, High >499 mg/dL, Very high Performed By: #### 2 4331-1 #### [facility] CLIA [id number] [address] [place] [address] [place] [facility] CLIA [id number] [address] [place] [address] [place] #### 3016-3 #### [facility] CLIA [id number] [address] [place] [address] [place] DO SCREENING W TOMOon 06-01 DO SCREENING W MARILYN * * *Final Report* * * DATE OF EXAM: Jun 01 2024 8:56AM [id number] - [facility] SCREENING W MARILYN / PROCEDURE REASON: Encounter for screening mammogram for breast cancer * * * * Physician Interpretation * * * * RESULT: #[id number] - DO SCREENING W MARILYN BILATERAL DIGITAL SCREENING MAMMOGRAM TOMOSYNTHESIS WITH CAD: 06/01/2024 HISTORY: /Screening Mammogram with MARILYN - patient reports NO breast symptoms /priors available for comparison Encounter For Screening Mammogram For Breast Cancer. RESULT: TECHNIQUE: The study was acquired using full field digital technology and interpreted from soft copy. Digital Breast Tomosynthesis (DBT) images were obtained and used to assist in the interpretation of this examination. Current study was also evaluated with a Computer Aided Detection (CAD). Comparison is made to exams dated: 11/15/2021 mammogram - and 07/23/2019 mammogram - [facility]. The breasts are heterogeneously dense, which may obscure small masses. No significant masses, calcifications, or other findings are seen in either breast. There has been no significant interval change. IMPRESSION: NEGATIVE There is no mammographic evidence of malignancy. A 1 year screening mammogram is recommended. Ji linton/joanna:06/01/2024 10:32:45 Java Web Engineer(s): RT Mahad(R)(M), letter sent: Normal over 40 Mammogram BI-RADS: Category 1: Negative Multiple national specialty organizations have released breast cancer screening guidelines for women at average risk for developing breast cancer - guidelines that are based on both evidence and opinion, yet differ on when to start and how often to screen for breast cancer. With representation from Breast Imaging, Internal Medicine, Women's Health, Family Medicine, and Medical/Surgical Oncology, the [facility] has carefully reviewed the data and reached the following consensus: 1) All women should engage in shared decision-making with their providers to decide when to start and how often to screen; 2) All women should have the opportunity to start screening mammography at age 40; 3) For women ages 45-55, we recommend annual screening mammograms; 4) For women ages 55 and over, we support both the transition from an annual to a biennial interval if this aligns more with patient's values and preferences, or continuation with annual screening; 5) All women should discuss with their providers when to stop screening mammograms. Side Laster Staple: Joanna Transcribe Date/Time: Jun 01 2024 8:44A Dictated by: JI CONTRERAS MD This examination was interpreted and the report reviewed and electronically signed by: JI CONTRERAS MD on Jun 01 2024 10:32AM EST [id number] Normal [facility] TSH SerPl-aCncon 06-01-2024 TSH Qn 1.390 m[IU]/L Normal 0.270-4.200 [facility] Comment on above: Order Comment: Speci men Type: BLOOD SPECIMEN Ordering Facility: [facility] Address: [address] [place] [address] Performed By: #### 2 4331-1 #### [facility] CLIA [id number] [address] [place] [address] OF [facility] CLIA [id number] [address] [place] [address] [place] #### 3016-3 #### [facility] CLIA [id number] [address] [place] [address] OF [facility] Tiffany 05-28-2024 JAQUELINE Telephone (OBGYWM) Alona KIRAN MARCH ([id number]) 1960 F Date Time Provider Department 05/28/24 CINDI STOVER OBSHRUTHI During your visit today, we recorded the following information about you: Cindi Stover APRN.CNP 05/28/2024 1:10 PM Signed SW pt-- pap LSIL and HPV+, will need colp. Order filed. Cindi Stovre APRN.COMMUNICATION INSTRUCTOR Tere Calderón LPN 05/28/2024 2:39 PM Signed Patient notified Allergies As of Date: 05/28/2024 Noted Allergy Reaction GRASS POLLEN 07/26/2005 5 - Intolerance POLLEN 07/26/2005 5 - Intolerance RAGWEED 07/26/2005 5 - Intolerance Date Reviewed: 05/18/2024 Reviewed by: Adelaida Morrow MA - Fully Assessed Reason for Visit: Results [95] Primary Visit Diagnosis:LGSIL on Pap smear of cervix [R87.612] Order(s):COLPOSCOPY [[id number]] Order #: [id number] Prescriptions as of 06/18/2024 - LORATADINE (CLARITIN ORAL) Take by mouth. Problem List As Of Date 05/28/2024 Noted Resolved HEMORRHOIDS NOS [K64.9] BREAST CYST [N60.09] 03/26/2006 10/23/2012 Symptomatic Menopausal or Female Climacteric St*09/19/2009 Sterilization [Z30.2] 09/19/2009 10/03/2011 Tobacco Use Disorder [F17.200] 10/25/2009 Other general counseling and advice for contrac*10/25/2009 10/03/2011 Rectal bleeding [K62.5] 08/16/2011 Atypical squamous cell changes of undetermined *07/15/2018 Medications Discontinued During This Encounter Prescriptions - cyanocobalamin, vitamin B-12, (VITAMIN B12 ORAL) (Discontinued) Take by mouth. - loperamide HCl (LOPERAMIDE ORAL) (Discontinued) Take by mouth. Encounter Status:Closed by CINDI STOVER on 06/18/24 [facility] CNOVeneida 05-18-2024 CNOV Office Visit (OBGYWM ) Alona KIRAN ESTHER ([id number]) 1960 F Date Time Provider Department 05/18/24 2:40 PM NIURKA FRANCOIS OBGYWM During your visit today, we recorded the following information about you: Blood pressure Weight Height 100/64 71 kg 1.549 m Niurka Francois MD 05/18/2024 3:29 PM Signed Scientific Director offered: Patient declines. Esther is a 63 year old who presents for an annual gynecologic exam without complaints. Postmenopausal: Yes, no PMB HRT use: No. 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 Technician History LMP: 10/03/2011, Postmenopausal Age at Menarche: Age at First : Age at Menopause: Cartography Technician History Comments: Sexual Activity: Yes; Male; Postmenopausal Contraception: No contraception data on record PAST MEDICAL HISTORY No date: Degeneration of cervical intervertebral disc Comment: DEGENERATED DISK DISEASE CERVICAL-NO MYELOPATHY No date: Diffuse cystic mastopathy No date: Excessive or frequent menstruation Comment: resolved No date: Irregular menstrual cycle Comment: Irregular periods - resolved No date: Irritable bowel syndrome 1988: Moderate dysplasia of cervix No date: Symptomatic menopausal or female climacteric states No date: Unspecified hemorrhoids without mention of complication No date: Unspecified hemorrhoids without mention of complication Comment: Hemorrhoids No date: VertigoPAST SURGICAL HISTORY 2017: COLONOSCOPY Comment: 2003: ENTEROLSS FRING INTSTINAL ADHESION SPX 11-05-11: HEMORRHOIDECTOMY INT AND XTRNL 2/> COLUMN/MIRIAM Comment: Dr. Pope 1987: PAST SURGICAL HISTORY OF Comment: CRYOCAUTERY CERVICAL DYSPLASIA 1999: PUNCTURE ASPIRATION CYST BREAST 07/31/2013: SIGMOIDOSCOPY FLX DX W/COLLJ SPEC BR/WA IF PFRMD Comment: Sigmoidoscopy, flexible FAMILY HISTORY Problem Relation Age of Onset Breast Cancer Mother AT AGE 60 ; DOING WELL AT 80 [03/19/06] Cancer Father bladder cancer No Known Problems Sister No Known Problems Sister No Known Problems Sister No Known Problems Brother Hypertension Son No Known Problems Son No Known Problems Daughter Cancer Maternal Grandmother 58 OVARIAN cancer Heart Paternal Grandmother SOCIAL HISTORY Social History Tobacco Use Smoking status: Every Day Packs/day: 0.50 Years: 20.00 Additional pack years: 0.00 Total pack years: 10.00 Types: Cigarettes Smokeless tobacco: Never Vaping Use Vaping Use: Never used Substance Use Topics Alcohol use: Yes Alcohol/week: 3.0 standard drinks of alcohol Types: 3 Cans of Beer (12oz) per week Comment: Rarely Drug use: No REVIEW OF SYSTEMS Abdomen: No abdominal pain, nausea, vomiting, diarrhea, or constipation. No bloating, early satiety, indigestion, or increased flatulence. Bladder: No dysuria, gross hematuria, urinary frequency, urinary urgency, or incontinence Breast: No breast lumps, nipple d/c, overlying skin changes, redness or skin retraction Allergies and current medication updated:Yes EXAM: BP 100/64 Ht 5' 1 (1.55m) Wt 156 lb 9.6 oz (71.0kg) LMP 10/03/2011 BMI 29.60 kg/(m2). GENERAL: pleasant, female in no apparent distress HEENT: Normocephalic, atraumatic, mucus membranes moist, and no lesions NECK: full range of motion DERMATOLOGY: Normal, without lesions, non-icteric, and non-hirsute BREAST: soft, non-tender, symmetric, no dominant mass, normal nipple-areolar complex, no lymphadenopathy, and no nipple discharge CHEST: Normal inspiratory effort ABDOMEN: soft, non-tender, and no masses PELVIC: external genitalia normal, normal Bartholin's glands, urethra, Shalimar's glands, no vulvar lesions, no cervical lesions, good vaginal support, physiologic discharge present, normal appearing perineal body and perianal region BIMANUAL: uterus normal size, shape and consistency, no adnexal masses, and non-tender RECTOVAGINAL: deferred. NEURO: exam grossly non-focal EXTREMITIES: normal ASSESSMENT/PLAN: 1) Health maintenance: Pap done with HPV. Mammogram ordered Nutrition, exercise and routine health maintenance exams reviewed. Colon cancer screening: up to date with screening TSH/lipids/glucose: ordered 2) Follow up one year or sooner as needed Niurka Francois DO Allergies As of Date: 05/18/2024 Noted Allergy Reaction GRASS POLLEN 07/26/2005 5 - Intolerance POLLEN 07/26/2005 5 - Intolerance RAGWEED 07/26/2005 5 - Intolerance Date Reviewed: 05/18/2024 Reviewed by: Odalys, Adelaida, MA - Fully Assessed Reason for Visit: Well Woman [1463] Primary Visit Diagnosis:Encounter for gynecological examination (general) (routine) without abnormal findings (more content not included)... Normal [facility] HIGH RISK HUMAN PAPILLOMA DEQUAN (HPV), PCR FOR DETECTION AND GENOTYPINGon 05-18-2024 HPV 16 Ag Ql (Unsp spec) Not detected Normal Not detected [facility] Comment on above: Order Comment: Speci men Type: BLOOD SPECIMEN Ordering Facility: [facility] Address: [address] [place] [address] Performed By: #### 2 4331-1 #### [facility] CLIA [id number] [address] [place] [address] [place] [facility] CLIA [id number] [address] [place] [address] [place] #### 3016-3 #### [facility] CLIA [id number] [address] [place] [address] [place] HPV 18 Ag Ql (Unsp spec) Not detected Normal Not detected [facility] Comment on above: Order Comment: Speci men Type: BLOOD SPECIMEN Ordering Facility: [facility] Address: [address] [place] [address] Performed By: #### 2 4331-1 #### [facility] CLIA [id number] [address] [place] [address] [place] [facility] CLIA [id number] [address] [place] [address] [place] #### 3016-3 #### [facility] CLIA [id number] [address] [place] [address] [place] HPV 31+33+35+39+45+51+52+ 56+58+59+66+68 DNA ALEX+probe Ql (Cvx) Detected Abnormal Not detected [facility] Comment on above: Order Comment: Speci men Type: BLOOD SPECIMEN Ordering Facility: [facility] Address: [address] [place] [address] Result Comment: High Risk HPV Other Type includes HPV types 31, 33, 35, 39, 45, 51, 52, 56, 58, 59, 66 and 68. Performed By: #### 2 4331-1 #### [facility] CLIA [id number] [address] [place] [address] [place] [facility] CLIA [id number] [address] [place] [address] [place] #### 3016-3 #### [facility] CLIA [id number] [address] [place] [address] [place] PAP TESTon 05-18-2024 ADEQUACY Satisfactory for interpretation. Normal [facility] Comment on above: Order Comment: Speci men Type: BLOOD SPECIMEN Ordering Facility: [facility] Address: [address] [place] [address] Performed By: #### 2 4331-1 #### [facility] CLIA [id number] [address] [place] [address] [place] [facility] CLIA [id number] [address] [place] [address] [place] #### 3016-3 #### [facility] CLIA [id number] [address] [place] [address] [place] CASE REPORT Normal [facility] Comment on above: Order Comment: Speci men Type: BLOOD SPECIMEN Ordering Facility: [facility] Address: [address] [place] [address] Result Comment: Gyne cologic Cytology Report Case: [id number] Authorizing Provider: Niurka Francois MD Collected: 05/18/2024 03:34 PM Ordering Location: OB/Gynecology Received: 05/18/2024 04:55 PM First Screen: Darline Scruggs CT, ASCP Pathologist: Rima Dempsey MD Specimen: Pap Test, ThinPrep, Cervix Performed By: #### 2 4331-1 #### [facility] CLIA [id number] [address] [place] [address] [place] [facility] CLIA [id number] [address] [place] [address] [place] #### 3016-3 #### [facility] CLIA [id number] [address] [place] [address] [place] CLINICAL HISTORY, CYTOLOGY, RENAL TECHNICIAN Routine Exam Normal [facility] Comment on above: Order Comment: Speci men Type: BLOOD SPECIMEN Ordering Facility: [facility] Address: [address] [place] [address] Result Comment: Post Menopausal Performed By: #### 2 4331-1 #### [facility] CLIA [id number] [address] [place] [address] [place] [facility] CLIA [id number] [address] [place] [address] [place] #### 3016-3 #### [facility] CLIA [id number] [address] [place] [address] [place] CYTOLOGY PAP OTHER INT Predominance of coccobacilli consistent with shift in vaginal cooper Normal [facility] Comment on above: Order Comment: Speci men Type: BLOOD SPECIMEN Ordering Facility: [facility] Address: [address] [place] [address] Performed By: #### 2 4331-1 #### [facility] CLIA [id number] [address] [place] [address] [place] [facility] CLIA [id number] [address] [place] [address] [place] #### 3016-3 #### [facility] CLIA [id number] [facility] [place] [id number] [place] FINAL PERFORMING LAB [facility] Comment on above: Order Comment: Speci men Type: BLOOD SPECIMEN Ordering Facility: [facility] Address: [address] [place] [address] Result Comment: Tech nical component, perl programmer screening performed at [facility], [address], [place] [address] CLIA# [id number] Diagnostic interpretation performed at [facility], [address], [place] [address] CLIA# [id number] Bleach Mixer: Rima Dempsey M.D. Performed By: #### 2 4331-1 #### [facility] CLIA [id number] [address] [place] [address] [place] [facility] CLIA [id number] [address] [place] [address] [place] #### 3016-3 #### [facility] CLIA [id number] [address] [place] [address] [place] HPV REFLEX Yes HPV Normal [facility] Comment on above: Order Comment: Speci men Type: BLOOD SPECIMEN Ordering Facility: [facility] Address: [address] [place] [address] Performed By: #### 2 4331-1 #### [facility] CLIA [id number] [address] [place] [address] [place] [facility] CLIA [id number] [address] [place] [address] [place] #### 3016-3 #### [facility] CLIA [id number] [address] [place], [place] [address] [place] INTERPRETATION, CYTOLOGY, RENAL TECHNICIAN Abnormal [facility] Comment on above: Order Comment: Speci men Type: BLOOD SPECIMEN Ordering Facility: [facility] Address: [address] [place] [address] Result Comment: Low grade squamous intraepithelial lesion (LSIL). Performed By: #### 2 4331-1 #### [facility] CLIA [id number] [address] [place] [address] [place] [facility] CLIA [id number] [address] [place] [address] [place] #### 3016-3 #### [facility] CLIA [id number] [address] [place] [address] [place] PAP DISCLAIMER COMMENT The Pap Smear is a screening test for cervical cancer. False negative results occur with all screening tests, emphasizing the need for rescreening at recommended intervals, and clinical correlation. Normal [facility] Comment on above: Order Comment: Speci men Type: BLOOD SPECIMEN Ordering Facility: [facility] Address: [address] [place] [address] Performed By: #### 2 4331-1 #### [facility] CLIA [id number] [address] [place] [address] [place] [facility] CLIA [id number] [address] [place] [address] [place] #### [id number] #### [facility] CLIA [id number] [address] [place], [place] [id number] [place] PAP GENERAL CATEGORIZATION Epithelial Cell Abnormality Normal [facility] Comment on above: Order Comment: Speci men Type: BLOOD SPECIMEN Ordering Facility: [facility] Address: [address] [place] [address] Performed By: #### 2 4331-1 #### [facility] CLIA [id number] [address] [place] [address] [place] [facility] CLIA [id number] [address] [place] [address] [place] #### [id number] #### [facility] CLIA [id number] [address] [place] [address] [place] PAP INSPECTOR FLOOR COMMENT This specimen has been analyzed by the ThinPrep Imaging System, an automated imaging and review system, which assists the laboratory in evaluating cells on ThinPrep Pap tests. Following automated imaging, selected herrera from every slide are reviewed by a perl programmer. Normal [facility] Comment on above: Order Comment: Speci men Type: BLOOD SPECIMEN Ordering Facility: [facility] Address: [address] [place] [address] Performed By: #### 2 4331-1 #### [facility] CLIA [id number] [address] [place] [address] [place] [facility] CLIA [id number] [address] [place] [address] [place] #### 3016-3 #### [facility] CLIA [id number] [address] [place] [address] [place] Urine Cultureon 12-07-2023 U[facility] Mixed Gram Positive Organisms Okay Count 11,000-25,000 MIXC Mixed contaminants. Submit a new specimen if indicated. Normal [facility] Comment on above: Performed By: #### M 100.2200, L400.0001 #### [facility] [address] [place], [place], [address] Urgent Care Visit Reporton 0 12-05-2023 Urgent Care Visit Report [facility] [address], [address] [place] [address] OFFICE VISIT Date of Service: 12/05/23 MR#: [id number] Acct: [id number] Name: ROCKY KIRAN ESTHER Rep #: [id number] : 1960 Provider: WANDY Gandara Age/Sex: 63/F Location: [facility] Status: Signed Intake Vital Signs 11/03/23 10:03 12/05/23 15:13 Height 5 ft 1 in 5 ft 1 in Weight: 149 lb 149 lb BMI 28.1 28.1 BP 112/64 128/86 H Blood Pressure Location Lt brachial Lt brachial Position Sitting Sitting Respiration 12 16 Pulse 82 104 H Pulse Source Monitor Monitor Temp 98.1 F 98.2 F Temp Source Temporal Temporal Pulse Oximetry (%) 96 98 Oxygen Delivery Method room air Intake Visit Reasons: CONCERN FOR UTI Chief 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: 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 uti sx 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: No Accompanied by: Self Is patient in pain?: No Allergies No Known Allergies Allergy (Verified 12/05/23 15:12) Medications nitrofurantoin monohydrate/macrocrys tals 100 mg capsule 1 cap PO Q12H 7 days #14 caps 12/05/23 [Rx Confirmed 12/05/23] PFSH Medical History Encounter for screening for COVID-19 URI (upper respiratory infection) Family History Mother Cancer Father Cancer Social History Smoking Status: Current every day smoker Tobacco: How many years used: 20 alcohol intake: current alcohol intake frequency: 0-2 drinks per day HPI HPI Chief Complaint: possible uti sx Details: ROCKY KIRAN, is a 63 F who presents to the office today for complaint of dysuria and increasing urgency/frequency for the past week. Patient denies fever, chills, sweats. No nausea, vomiting, diarrhea. No hemoptysis, shortness of breath or difficult breathing. No pelvic or abdominal pain. No loss of bowel or bladder control. No other associated symptoms or alleviating/aggravati ng factors. ROS Const Constitutional: Positive for other (ROS negative x6 except what was placed in HPI) Exam Const General: cooperative and healthy appearing Resp Effort Inspection: normal respiratory effort Auscultation: Bilateral: Clear to Auscultation Cardio Rate: regular rate Rhythm: regular rhythm GI Auscultation: normal bowel sounds General: No CVA tenderness Psych Appearance: grossly normal Mental Status: mental status grossly normal Coding Level of Care Code Off vis,est,level 3 Diagnoses Dysuria R30.0 Assessment and Plan Assessment and Plan (1) Dysuria: Status: Acute Orders: Orders Urinalysis, Complete Today R30.0 - Dysuria Culture, Urine Today R30.0 - Dysuria POC Urinalysis Dip (Clinic) Today R30.0 - Dysuria Medications: New nitrofurantoin monohyd/m-cryst 100 mg administer with a meal/food; swallow whole; do not open, crush, dissolve , or chew 1 cap PO Q12H 7 days 14 caps 0RF Plan Macrobid as prescribed today. Encouraged to get plenty of rest, drink lots of clear liquids, and use Tylenol or Ibuprofen (unless contraindicated) for fever and comfort. Patient also educated on other symptomatic management techniques. To be seen in 7-10 days if no improvement; sooner if worsening of symptoms. Patient advised of potential red flags and when appropriate to report to the ED. Patient verbalized understanding and agreement with all the above. 12/05/23 174 Date Sergei Tipton Signature: Date (if applicable) CC: Normal [facility] Urinalysis, Completeon 12-05 CA OX CRYSTAL 1+ /hpf Normal [facility] Comment on above: Order Comment: ROSI NAVARROOR TO SPECIFY Performed By: #### M 100.2200, L400.0001 #### [facility] [address] [place], [place], [id number] EPI,SQUAMOUS 0-5 SEEN Normal 5-10 [facility] Comment on above: Order Comment: ROSI CTOR TO SPECIFY Performed By: #### M 100.2200, L400.0001 #### [facility] [address] [place], [address] Mucus Ql (Urine sed) RARE Normal [facility] Comment on above: Order Comment: ROSI CTOR TO SPECIFY Performed By: #### M 100.2200, L400.0001 #### [facility] [address] [place], [address] WBC 5-10 SEEN Normal 0-5 [facility] Comment on above: Order Comment: ROSI CTOR TO SPECIFY Performed By: #### M 100.2200, L400.0001 #### [facility] [address] [place], [address] BACTERIA 0 SEEN Normal None Seen [facility] Comment on above: Order Comment: ROSI CTOR TO SPECIFY Performed By: #### M 100.2200, L400.0001 #### [facility] [address] [place], [address] RBC 0 SEEN Normal 0-5 [facility] Comment on above: Order Comment: ROSI CTOR TO SPECIFY Performed By: #### M 100.2200, L400.0001 #### [facility] [address] [place], [address] Urgent Care Visit Reporton 0 - Urgent Care Visit Report [facility] [address], [address] [place], [place] [address] OFFICE VISIT Date of Service: 11/03/23 MR#: [id number] Acct: [id number] Name: ROCKY KIRAN MARCH Rep #: [id number] : 1960 Provider: MARYCARMEN Marino Age/Sex: 63/F Location: [facility] Status: Signed Intake Vital Signs 09/06/21 10:23 11/03/23 10:03 Height 5 ft 2 in 5 ft 1 in Weight: 149 lb BMI 28.1 BP 112/64 Blood Pressure Location Lt brachial Position Sitting Respiration 12 Pulse 82 Pulse Source Monitor Temp 98.1 F Temp Source Temporal Pulse Oximetry (%) 96 Oxygen Delivery Method room air Intake Visit Reasons: CHEST CONGESTION Chief Complaint: Nausea and sore tongue/throat Allergies No Known Allergies Allergy (Verified 11/03/23 10:04) [facility] Medical History (Updated 11/03/23 @ 10:13 by MARYCARMEN Anton) Encounter for screening for COVID-19 URI (upper respiratory infection) Family History (Updated 09/06/21 @ 10:15 by Radha Hutchison) Mother Cancer Father Cancer Social History (Updated 09/06/21 @ 10:16 by Radha Hutchison) Smoking Status: Current every day smoker Tobacco: How many years used: 20 alcohol intake: current alcohol intake frequency: 0-2 drinks per day HPI HPI Chief Complaint: Nausea and sore tongue/throat Details: ROCKY KIRAN, is a 63 F who presents to the office today for cough. Sx started Saturday night with cough. Yesterday cough got worse and developed head congestion. Cough is wet- but not productive. Runny nose. Fever this morning 100.5. No sob. Myalgias on occasion. Headache this morning. Tried- ibuprofen, mucinex DM. + smoker, no hx asthma/copd ROS Const Constitutional: Positive for other (ROS negative x6 except what was placed in HPI) Exam Const General: cooperative, comfortable and no acute distress Orientation: alert, awake and oriented x3 HENMT Head: normal to inspection and normocephalic Ears: hearing grossly normal bilaterally, external ears normal and TM's normal bilaterally Nose: external nose normal and other (+ congestion and rhinorrhea. Mild erythema and swelling) Face and sinus: normal facial exam, sinuses nontender and face symmetric Mouth: oral mucosae normal, lip normal, tongue normal, oropharynx normal and moist mucous membranes Throat: posterior oropharynx normal, tonsils normal, uvula midline and postnasal drainage Neck Neck: normal visual inspection, full ROM and no lymphadenopathy Resp Effort Inspection: normal respiratory effort, able to speak in complete sentences and symmetric chest movement Auscultation: Bilateral: Clear to Auscultation, Left: Clear to Auscultation and Right: Clear to Auscultation Other: wet cough heard during visit several times. Cardio Rate: regular rate Rhythm: regular rhythm Heart Sounds: S1 normal and S2 normal GI Auscultation: normal bowel sounds Palpation: soft Skin General: no rashes or lesions noted and turgor normal Neuro General: patient alert, patient awake and patient oriented x3 Cognition: normal cognition Speech: speech normal Psych Appearance: grossly normal Mental Status: mental status grossly normal Attitude: cooperative Thought Process: normal Thought Content: normal Coding Level of Care Code Off vis,new,level 2 Diagnoses Bronchitis J40 Assessment and Plan Assessment and Plan (1) Bronchitis: Status: Acute Plan: If prescribed antibiotics take the full course even if feeling better. Warm salt water gargles, warm tea with honey, increase fluids, saline nasal spray 2 squirts each nostril every 2 hours as needed, Flonase nasal spray 1 squirt once a day, cetirizine (Zyrtec) one daily, cool mist humidifier, Tylenol and or ibuprofen as needed for fever or discomfort. Stop smoking. Please follow up with your Primary Care Physician for ongoing chronic problems. If symptoms change or worsen, please present to Emergency Room for further evaluation 1. See visit diagnoses, disposition, and orders. 2. Reviewed and updated medication list; Discussed probable diagnosis, test results if available in office today and management options with patient/guardian: agreed to the medical plan above 3. Education provided regarding visit today, see after visit summary. Instruction provided in the use of fluids, vaporizer, acetaminophen, and/or other OTC medication for symptom control. Explained use of antibiotics only for proven or strongly suspected bacterial infections. 4. Prevention and health maintenance with primary care provider. 5. Patient/guardian educated to proceed to ED with worsening of condition, changes, or failure to improve. Medications: New azithromycin For 250 mg dose pack: take 500 mg today (day 1), then 250 mg for 4 days (days 2-5) PO 6 tabs 0RF 11/03/23 1014 Date __ (more content not included)... Normal [facility] - Microbiology an d Antimicrobial susceptibilityon 05-17-2022 SARS-CoV-2 (COVID-19) RNA ALEX+probe Ql (Unsp spec) Not detected Not Detect [facility] Work Phone: Comment on above: Normal Reference Ran ge: Not DetectedMethod:(RT-PCR) real-time reverse transcriptase PCRLuminex FRANCISCO J Instrument*The Food and Drug Administration (FDA) has issued an Emergency Use Authorization (EAU) for the FRANCISCO J SARS-CoV-2 Assay for the rapid detection of the virus that causes COVID-19. This test has been validated, but the [facility] independent review of this validation is pending.*Negative results do not preclude infection and should not be used as the sole basis for treatment or patient management. Optimum specimen types and timing for peak viral levels during infections caused by SARS-CoV-2 have not been determined. Collection of multiple specimens from the same patient may be necessary to detect the virus. The possibility of a false negative result should be considered if the patient has clinical presentation or has had recent exposure. Laboratory - Microbiology an d Antimicrobial susceptibilityon 05-15-2022 SARS-CoV-2 (COVID-19) RNA ALEX+probe Ql (Unsp spec) Not detected Not Detect [facility] Work Phone: Comment on above: Normal Reference Ran ge: Not DetectedMethod:(RT-PCR) real-time reverse transcriptase PCRLuminex BioPoly Instrument*The Food and Drug Administration (FDA) has issued an Emergency Use Authorization (EAU) for the BioPoly SARS-CoV-2 Assay for the rapid detection of the virus that causes COVID-19. This test has been validated, but the [facility] independent review of this validation is pending.*Negative results do not preclude infection and should not be used as the sole basis for treatment or patient management. Optimum specimen types and timing for peak viral levels during infections caused by SARS-CoV-2 have not been determined. Collection of multiple specimens from the same patient may be necessary to detect the virus. The possibility of a false negative result should be considered if the patient has clinical presentation or has had recent exposure. No Panel Informationon 02-19 POC SARS CoV-2 Antigen Negative [facility] Work Phone: Vital Signs Date Time Vital Sign Value Performing Clinician Faci lity 04-01-2025 10:45-0400 Body temperature 98.3 [degF] Sergei SABA Work Phone: [facility] 04-01-2025 10:45-0400 Diastolic blood pressure 80 mm[Hg] Sergei SABA Work Phone: [facility] 04-01-2025 10:45-0400 Heart rate 79 /min Sergei SABA Work Phone: [facility] 04-01-2025 10:45-0400 Respiratory rate 16 /min Sergei SABA Work Phone: [facility] 04-01-2025 10:45-0400 SaO2% (BldA) [Mass fraction] 95 % Sergei SABA Work Phone: [facility] 04-01-2025 10:45-0400 Systolic blood pressure 122 mm[Hg] Sergei SABA Work Phone: [facility] 06-29-2024 15:14-0400 Body mass index (BMI) [Ratio] 29.25 kg/m2 Niurka Francois MD Work Phone: [facility] 06-29-2024 15:14-0400 Body weight 70.22 kg Niurka Francois MD Work Phone: [facility] 06-29-2024 15:14-0400 Diastolic blood pressure 72 mm[Hg] Niurka Francois MD Work Phone: [facility] 06-29-2024 15:14-0400 Systolic blood pressure 110 mm[Hg] Niurka Francois MD Work Phone: [facility] 05-18-2024 15:12-0400 Body height 154.9 cm Niurka Francois MD Work Phone: [facility] 05-18-2024 15:12-0400 Body mass index (BMI) [Ratio] 29.59 kg/m2 Niurka Francois MD Work Phone: [facility] 05-18-2024 15:12-0400 Body weight 71.03 kg Niurka Francois MD Work Phone: [facility] 05-18-2024 15:12-0400 Diastolic blood pressure 64 mm[Hg] Niurka Francois MD Work Phone: [facility] 05-18-2024 15:12-0400 Systolic blood pressure 100 mm[Hg] Niurka Francois MD Work Phone: [facility] 02-19-2022 08:32-0400 Body temperature 98.6 [degF] Dr. Hemal Cortez Work Phone: [facility] Work Phone: 02-19-2022 08:32-0400 Diastolic blood pressure 72 mm[Hg] Dr. Hemal Cortez Work Phone: [facility] Work Phone: 02-19-2022 08:32-0400 Heart rate 78 /min Dr. Hemal Cortez Work Phone: [facility] Work Phone: 02-19-2022 08:32-0400 Respiratory rate 16 /min Dr. Hemal Cortez Work Phone: [facility] Work Phone: 02-19-2022 08:32-0400 SaO2% (BldA) [Mass fraction] 96 % Dr. Hemal Cortez Work Phone: [facility] Work Phone: 02-19-2022 08:32-0400 Systolic blood pressure 126 mm[Hg] Dr. Hemal Cortez Work Phone: [facility] Work Phone: Encounters Encounter Date Encounter Type Care Provider Facility Start: 04-01-2025 End: 04-01-2025 ambulatory Sergei SABA Work Phone: [facility] Work Phone: Start: 04-01-2025 End: 04-01-2025 Patient encounter procedure Sergei SABA [facility] Work Phone: Start: 09-04-2024 End: 09-04-2024 ambulatory Sergei SABA Facility[facility] Start: 09-04-2024 End: 09-04-2024 ambulatory Sergei SABA Facility:[facility] Start: 06-29-2024 End: 06-29-2024 ambulatory CINDI STOVER Facility:[facility] Start: 06-29-2024 End: 06-29-2024 Patient encounter procedure Niurka Francois MD Work Phone: OB/Gynecology Comment on above: Pap smear abnormalit y of cervix with LGSIL (Primary Dx); Vaginal high risk human papillomavirus (HPV) DNA test positive Start: 06-01-2024 End: 06-02-2024 Documentation procedure Mammography Coordinator [facility] Department Start: 06-01-2024 End: 06-02-2024 Letter encounter Mammography Coordinator [facility] Start: 06-01-2024 End: 06-01-2024 ambulatory NIURKA FRANCOIS Facility:[facility] Start: 06-01-2024 Encounter for gynecological examination (general) (routine) without abnormal findings CINDI STOVER [facility] Start: 06-01-2024 Patient encounter procedure CINDI STOVER [facility] Start: 06-01-2024 End: 06-01-2024 Subsequent hospital visit by physician Screen Mammo [facility] W[facility] Mammogram Comment on above: Encounter for screen ing mammogram for breast cancer [Z12.31] Start: 05-28-2024 End: 06-18-2024 Telephone encounter Cindi Stover APRN.CNP Work Phone: OB/Gynecology Comment on above: Results Start: 05-18-2024 End: 05-18-2024 ambulatory NIURKA FRANCOIS Facility:[facility] Start: 05-18-2024 End: 05-18-2024 Patient encounter procedure Niurka Francois MD Work Phone: OB/Gynecology Comment on above: Encounter for gyneco logical examination (general) (routine) without abnormal findings (Primary Dx); Encounter for screening for human papillomavirus (HPV); Pap smear for cervical cancer screening; Encounter for screening mammogram for breast cancer; Well woman exam Start: 05-18-2024 End: 05-18-2024 Patient encounter status Niurka Francois MD Work Phone: [facility] Start: 12-05-2023 End: 12-05-2023 ambulatory Sergei SABA Facility:[facility] Start: 12-05-2023 End: 12-05-2023 ambulatory Chelsea Kirkland Facility:[facility] Start: 11-03-2023 End: 11-03-2023 ambulatory Chelsea Kirkland Facility:[facility] Start: 05-17-2022 End: 05-17-[address] Hemal Cortez Work Phone: [facility], Specimen Start: 05-15-2022 End: 05-15-[address] [facility] Start: 02-19-2022 End: 02-19-[address] [facility] Date Procedure Procedure Detail Performing Clinician Start: 06-29-2024 Level iv surg pathol ogy gross&microscopic exam Niurka Francois MD Work Phone: Start: 06-01-2024 Screening digital br east tomosynthesis bi Niurka Francois MD Work Phone: Start: 06-01-2024 Lipid 1996 panel - S mitra or Plasma Screen Wstr Start: 07-31-2013 Colonoscopy Niurka garcia MD Work Phone: Plan of Treatment Date Care Activity Detail Author Start: 2035 RSV Vaccine (1 - 1-d ose 75+ series) RSV Vaccine (1 - 1-dose 75+ series) [facility] Start: 06-01-2029 Lipid panel Lipid Screening [facility] Start: 06-01-2027 Diabetes Screening Diabetes Screenin g [facility] Start: 06-01-2025 Screening for malign ant neoplasm of breast Mammogram Screening [facility] Start: 05-24-2025 End: 05-24-2025 Patient encounter procedure 05/24/2025 4:00 PM EDT Office Visit OB/Gynecology [address] [place] [address] Niurka Francois MD [address] [place] [id number] Annual OB/Gynecology Comment on above: Annual Start: 05-18-2025 Screening for malign ant neoplasm of cervix Cervical Cancer Screening [facility] Start: 06-29-2024 End: 06-29-2024 Patient encounter procedure 06/29/2024 3:20 PM EDT Office Visit OB/Gynecology [address] [place] [address] Niurka Francois MD [address] [place] [address] colp OB/Gynecology Comment on above: col Start: 06-14-2024 Covid-19 Vaccine () Covid-19 Vaccine () [facility] Start: 06-14-2024 Covid-19 Vaccine () Covid-19 Vaccine () [facility] Start: 06-14-2024 Influenza vaccination Influenza Vacc ine (#1) [facility] Start: 06-08-2024 End: 06-08-2024 Patient encounter procedure 06/08/2024 1:10 PM EDT Office Visit OB/Gynecology [address] [place] [address] Niurka Francois MD [address] [place] [address] colp OB/Gynecology Comment on above: colp Start: 06-01-2024 End: 06-01-2024 Patient encounter procedure 06/01/2024 9:10 AM EDT Appointment Mammogram [address] [place], [place] [address] Encounter for screening mammogram for breast cancer [Z12.31] Mammogram Comment on above: Encounter for screen ing mammogram for breast cancer [Z12.31] Start: 05-18-2024 End: 08-17-2024 CBC panel - Blood by Automated count COMPLETE BLOOD COUNT Lab Routine Encounter for gynecological examination (general) (routine) without abnormal findings Well woman exam Expected: 05/18/2024, Expires: 08/17/2024 [facility] Comment on above: Expected: 05/18/2024 , Expires: 08/17/2024 Start: 05-18-2024 End: 08-17-2024 Comprehensive metabolic 2000 panel - Serum or Plasma COMPREHENSIVE METABOLIC PANEL Lab Routine Encounter for gynecological examination (general) (routine) without abnormal findings Well woman exam Expected: 05/18/2024, Expires: 08/17/2024 [facility] Comment on above: Expected: 05/18/2024 , Expires: 08/17/2024 Start: 05-18-2024 End: 08-17-2024 Lipid 1996 panel - Serum or Plasma LIPID PANEL BASIC Lab Routine Encounter for gynecological examination (general) (routine) without abnormal findings Well woman exam Expected: 05/18/2024, Expires: 08/17/2024 [facility] Comment on above: Expected: 05/18/2024 , Expires: 08/17/2024 Start: 05-18-2024 End: 08-17-2024 Thyrotropin [Units/volume] in Serum or Plasma THYROID STIMULATING HORMONE Lab Routine Encounter for gynecological examination (general) (routine) without abnormal findings Well woman exam Expected: 05/18/2024, Expires: 08/17/2024 [facility] Comment on above: Expected: 05/18/2024 , Expires: 08/17/2024 Start: 07-31-2023 Screening for malign ant neoplasm of colon [facility] Start: 06-14-2023 Covid-19 Vaccine ( season) Covid-19 Vaccine ( season) [facility] Start: 11-15-2022 Screening for malign ant neoplasm of breast Mammogram Screening [facility] Start: 11-15-2022 Screening for malign ant neoplasm of cervix Cervical Cancer Screening [facility] Start: 2020 RSV Vaccine (1 - 1-d ose 60+ series) RSV Vaccine (1 - 1-dose 60+ series) [facility] Start: 07-31-2018 Screening for malign ant neoplasm of colon Sigmoidoscopy [facility] Start: 2010 Shingrix Vaccine (1 of 2) Shingrix Vaccine (1 of 2) [facility] Start: 2005 Diabetes Screening Diabetes Screenin g [facility] Start: 2005 Lipid panel Lipid Screening [facility] Start: 2005 Screening for malign ant neoplasm of colon [facility] Start: 1979 Urine microalbumin profile DTaP,Tdap,Td Vaccine (1 - Tdap) [facility] Start: 1978 Anxiety Screening Anxiety Screening [facility] Start: 1978 Depression Screening Depression Scre ening [facility] Start: 1978 Hepatitis C screening Hepatitis C Sc roshni [facility] Start: 1978 HIV screening HIV Screening [facility] Start: 1966 Pneumococcal vaccination Pneumococcal Vaccine (1 of 2 - PCV) [facility] COLPOSCOPY COLPOSCOPY Proce dures Routine LGSIL on Pap smear of cervix Ordered: 05/28/2024 [facility] Work Phone: Comment on above: Ordered: 05/28/2024 COLPOSCOPY COLPOSCOPY Proce dures Routine Pap smear abnormality of cervix with LGSIL Vaginal high risk human papillomavirus (HPV) DNA test positive Ordered: 06/29/2024 [facility] Work Phone: Comment on above: Ordered: 06/29/2024 End: 06-17-2025 DBT Breast - bilateral screening DO SCREENING W [facility] Radiology Routine Encounter for screening mammogram for breast cancer 1 Occurrences starting 05/18/2024 until 06/17/2025 [facility] Work Phone: Comment on above: 1 Occurrences starti ng 05/18/2024 until 06/17/2025 PAP TEST PAP TEST Lab Rou elly Encounter for gynecological examination (general) (routine) without abnormal findings Encounter for screening for human papillomavirus (HPV) Pap smear for cervical cancer screening 05/18/2024 3:34 PM EDT [facility] Immunizations Immunization Date Immunization Notes Care Provider Karen girard 08-07-2019 influenza virus vacc ine, unspecified formulation Niurka Francois MD Work Phone: [facility] Payers Date Payer Category Payer Self-pay [id number] 2021 Private Health Insurance ded [id number] 2021 Private Health Insurance [id number] 2011 Unknown [id number] Unknown [facility] [id number] Unknown [facility] [id number] Unknown [id number] Unknown [id number] Unknown [id number] Unknown [id number] Unknown [id number] Social History Date Type Detail Facility Start: 02-19-2022 Tobacco smoking stat [facility] Unknown if ever smoked [facility] Work Phone: Start: 09-06-2021 None [facility] Start: 1960 Sex Assigned At Female W [facility] Start: 12-05-2023 End: 05-18-2024 Tobacco smoking status MNIS Smokes tobacco daily [facility] History of tobacco use Cigarette Smoker [facility] Start: 05-18-2024 End: 06-29-2024 Cigarettes smoked current (pack per day) - Reported 0.5 [facility] Start: 05-18-2024 End: 06-29-2024 Tobacco use and exposure Smokeless tobacco non-user [facility] Start: 05-18-2024 End: 06-29-2024 Alcohol intake Current drinker of alcohol (finding) [facility] Start: 05-18-2024 End: 06-29-2024 Tobacco use panel [facility] National Score (1-10 0), lower number is lower risk 35 [facility] Start: 1960 Sex Assigned At Not on file [facility] Clinical Notes 05-18-2024 to 06-29-2024 Niurka Francois MD - 06/29/2024 3:10 PM EDTPatient InstructionsLetter - Coordinator, Mammography - 06/01/2024 10:32 AM EDTLetter - Coordinator, Mammography - 06/01/2024 10:32 AM EDT Note Date & Type Note Facility 06-29-2024 Note HNO ID: [id number] Author: NIURKA FRANCOIS MD Service: ? Author Type: Physician Type: Progress Notes Filed: 07/06/2024 08:18 Note Text: Scientific Director offered: Patient declines. Esther is a 63 year old who presents today for a colposcopy. The patient's last pap smear was LGSIL and Positive HPV from May 2024. Patient has a history of abnormal pap: Yes. The patient has had prior treatment: Colposcopy. test: n/a, post menopausal UNIVERSAL PROTOCOL / SAFETY CHECKLIST Procedure to be Performed: Colposcopy with Possible Biopsies Sign In: A Moment of CARE was completed. Personnel directly involved with the procedure wore the appropriate PPE (Personal Protective Equipment). Patient/Surrogate Stated/Verified: PATIENT VERIFIED(optional for EMERGENT procedures): Patient name, Date of , Relevant allergies, and The intended procedure Time Out Communication: Intended patient and procedure match the source documents. Consent documented and matches the intended procedure. Sign Out: SIGN OUT (optional for EMERGENT procedures): All specimen containers correctly labeled. All instruments, equipment, possible retained foreign bodies accounted for. Post-procedure follow-up management communicated and Plan of Care Visit completed when applicable. PROCEDURE: EXTERNAL GENITALIA: Normal in appearance without lesions VAGINA: Normal in appearance without lesions CERVIX: Speculum placed in vagina and excellent visualization of cervix achieved. Cervix swabbed x 3 with 3% acetic acid solution. Cervix grossly normal. Squamocolumnar junction visualized. Possible faint acetowhite changes noted 12 o'clock. BIOPSY: Done at 12:00 ECC: done HEMOSTASIS: Obtained with pressure Procedure Summary: Patient tolerated procedure well and colposcopy was adequate. ASSESSMENT: HPV effect PLAN: Specimens labeled and sent to Pathology. Will notify patient of results in 1-2 weeks. Post-procedure instructions reviewed and written material given to the patient. Niurka Francois DO [facility] 06-29-2024 History of Presen t illness Narrative Scientific Director offered: Patient declines. Esther is a 63 year old who presents today for a colposcopy. The patient's last pap smear was LGSIL and Positive HPV from May 2024. Patient has a history of abnormal pap: Yes. The patient has had prior treatment: Colposcopy. test: n/a, post menopausal UNIVERSAL PROTOCOL / SAFETY CHECKLIST Procedure to be Performed: Colposcopy with Possible Biopsies Sign In: A Moment of CARE was completed. Personnel directly involved with the procedure wore the appropriate PPE (Personal Protective Equipment). Patient/Surrogate Stated/Verified: PATIENT VERIFIED(optional for EMERGENT procedures): Patient name, Date of , Relevant allergies, and The intended procedure Time Out Communication: Intended patient and procedure match the source documents. Consent documented and matches the intended procedure. Sign Out: SIGN OUT (optional for EMERGENT procedures): All specimen containers correctly labeled. All instruments, equipment, possible retained foreign bodies accounted for. Post-procedure follow-up management communicated and Plan of Care Visit completed when applicable. PROCEDURE: EXTERNAL GENITALIA: Normal in appearance without lesions VAGINA: Normal in appearance without lesions CERVIX: Speculum placed in vagina and excellent visualization of cervix achieved. Cervix swabbed x 3 with 3% acetic acid solution. Cervix grossly normal. Squamocolumnar junction visualized. Possible faint acetowhite changes noted 12 o'clock. BIOPSY: Done at 12:00 ECC: done HEMOSTASIS: Obtained with pressure Procedure Summary: Patient tolerated procedure well and colposcopy was adequate. ASSESSMENT: HPV effect PLAN: Specimens labeled and sent to Pathology. Will notify patient of results in 1-2 weeks. Post-procedure instructions reviewed and written material given to the patient. Niurka Francois DO documented in this encounter [facility] 06-29-2024 Instructions Adelaida Morrow MA - 06/29/2024 3:10 PM EDT YOUR RECOVERY It may take a few weeks for your cervix to heal. While your cervix heals, you may have: - Vaginal bleeding (less than a normal menstrual period) - Mild cramping - A brown-black vaginal discharge (similar to coffee grounds) which is a result of the paste used to help stop bleeding from the procedure Do NOT put anything in the vagina for 1 week after your colposcopy if your doctor does a biopsy of your cervix. This includes sex, tampons, and douches. If you have any discomfort, you may take an over the counter pain medication (motrin, advil, ibuprofen, tylenol, etc). If this does not relieve your discomfort, contact your doctor's office for a prescription strength pain medication. It is okay to wear a sanitary pad until the discharge and spotting stops. RISKS Although problems seldom occur with colposcopy, there can be some complications. You may feel faint during and shortly after the procedure as well as have some bleeding and vaginal discharge after the procedure. There is also a risk of infection after the procedure. These complications are rare and can be easily treated. You should contact you doctor is you have any of the following: - Heavy bleeding (more than your normal period) - Bleeding with clots - Severe abdominal pain - Fever (more than 100.4F) - Foul smelling vaginal discharge RESULTS If a biopsy was taken, we will have the results of your biopsy in 1-2 weeks. If you do not hear the results of your biopsy after 2 weeks, please contact your physicians office for the results. Depending on the biopsy results, your doctor will determine your follow up plan which may include further testing or treatments. STAYING HEALTHY After the procedure, you will need to see your doctor for follow up visits during the year. At these visits your doctor will check the health of your cervix with a pap smear. After three normal pap smears, your doctor will allow you to return to having exams once a year. If you have another abnormal pap smear, you may need closer follow up for longer or you may need additional treatment. By making a few lifestyle changes after the procedure, you can help protect the health of your cervix: - Have regular pelvic exams and pap smears as ordered by your doctor. - Stop smoking as smoking increases your risk of developing a cancer of the cervix - If you have more than one sexual partner, limit your number of partners and use condoms to reduce your risks of STDs. If you have any additional questions, please contact your doctor's office. documented in this encounter [facility] 06-01-2024 Note Formatting of this n ote might be different from the original. June 01, 2024 PID: [id number] Alona Kiran [address] [place] [address] Dear Ms. Kiran, We are pleased to inform you that the results of your recent breast imaging exam on 06/01/2024 are normal. Breast tissue can be either dense or not dense. Dense tissue makes it harder to find breast cancer on a mammogram and also raises the risk of developing breast cancer. Your breast tissue is dense. In some people with dense tissue, other imaging tests in addition to a mammogram may help find cancers. Talk to your healthcare provider about breast density, risks for breast cancer, and your individual situation. Early detection of cancer is very important. We also understand recommendations regarding breast cancer screening are controversial. Please discuss with your primary care provider which strategy is best for you and whether a mammogram is right for you. Your imaging studies and report will be kept on file at [facility] as part of your permanent medical record and are available for your continuing care. Thank you for allowing us to help in meeting your health care needs. Sincerely, Dr. Contreras Interpreting Radiologist (Normal over 40) [facility] 06-01-2024 Miscellaneous Notes June 01, 2024 PID: [id number] Alona Kiran [address] [place] [address] Dear Ms. Kiran, We are pleased to inform you that the results of your recent breast imaging exam on 06/01/2024 are normal. Breast tissue can be either dense or not dense. Dense tissue makes it harder to find breast cancer on a mammogram and also raises the risk of developing breast cancer. Your breast tissue is dense. In some people with dense tissue, other imaging tests in addition to a mammogram may help find cancers. Talk to your healthcare provider about breast density, risks for breast cancer, and your individual situation. Early detection of cancer is very important. We also understand recommendations regarding breast cancer screening are controversial. Please discuss with your primary care provider which strategy is best for you and whether a mammogram is right for you. Your imaging studies and report will be kept on file at [facility] as part of your permanent medical record and are available for your continuing care. Thank you for allowing us to help in meeting your health care needs. Sincerely, Dr. Contreras Interpreting Radiologist (Normal over 40) documented in this encounter [facility] 06-01-2024 History of Presen t illness Narrative Radiology Service Progress Note PATIENT NAME: Alona Kiran DATE OF SERVICE: June 01, 2024 TIME: 8:57 AM PATIENT IDENTITY VERIFICATION COMPLETED USING TWO (2) IDENTIFIERS: Name and Date of confirmed by patient verbally. FALL SCREENING: Has the patient had 2 falls in the last year or 1 fall with injury or currently using an Ambulatory Assistive Device (Walker, Cane, Wheelchair, Crutches, etc.)? No PATIENT GENDER DATA: Female. status: : No status: NO. PATIENT RELEVANT IMPLANT DATA REVIEWED: Not Applicable PATIENT PRESENTS WITH AN IMPLANTABLE OR ATTACHED ANODE BUILDER: No RADIOLOGY DEPARTMENT: Mammography PERIPHERAL IV DATA: Not applicable SIGNED BY: Faisal Tobin June 01, 2024 8:57 AM documented in this encounter [facility] 06-01-2024 Note HNO ID: [id number] Author: ELENI LEZAMA Mammo Tech Service: ? Author Type: Telecommunications Line Mechanic Type: Progress Notes Filed: 06/01/2024 08:57 Note Text: Radiology Service Progress Note PATIENT NAME: Alona Kiran DATE OF SERVICE: June 01, 2024 TIME: 8:57 AM PATIENT IDENTITY VERIFICATION COMPLETED USING TWO (2) IDENTIFIERS: Name and Date of confirmed by patient verbally. FALL SCREENING: Has the patient had 2 falls in the last year or 1 fall with injury or currently using an Ambulatory Assistive Device (Walker, Cane, Wheelchair, Crutches, etc.)? No PATIENT GENDER DATA: Female. status: : No status: NO. PATIENT RELEVANT IMPLANT DATA REVIEWED: Not Applicable PATIENT PRESENTS WITH AN IMPLANTABLE OR ATTACHED ANODE BUILDER: No RADIOLOGY DEPARTMENT: Mammography PERIPHERAL IV DATA: Not applicable SIGNED BY: Faisal Tobin June 01, 2024 8:57 AM [facility] 05-28-2024 Telephone encounter Note Patient notified [facility] 05-28-2024 Miscellaneous Notes Patient notified SW pt-- pap LSIL and HPV+, will need colp. Order filed. Cindi Stover APRN.COMMUNICATION INSTRUCTOR documented in this encounter [facility] 05-28-2024 Telephone encounter Note SW pt-- pap LSIL and HPV+, will need colp. Order filed. Cindi Stover APRN.COMMUNICATION INSTRUCTOR [facility] 05-18-2024 Note HNO ID: [id number] Author: NIURKA FRANCOIS MD Service: ? Author Type: Physician Type: Progress Notes Filed: 05/18/2024 15:29 Note Text: Scientific Director offered: Patient declines. Esther is a 63 year old who presents for an annual gynecologic exam without complaints. Postmenopausal: Yes, no PMB HRT use: No. 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 Technician History LMP: 10/03/2011, Postmenopausal Age at Menarche: Age at First : Age at Menopause: Cartography Technician History Comments: Sexual Activity: Yes; Male; Postmenopausal Contraception: No contraception data on record PAST MEDICAL HISTORY No date: Degeneration of cervical intervertebral disc Comment: DEGENERATED DISK DISEASE CERVICAL-NO MYELOPATHY No date: Diffuse cystic mastopathy No date: Excessive or frequent menstruation Comment: resolved No date: Irregular menstrual cycle Comment: Irregular periods - resolved No date: Irritable bowel syndrome 1988: Moderate dysplasia of cervix No date: Symptomatic menopausal or female climacteric states No date: Unspecified hemorrhoids without mention of complication No date: Unspecified hemorrhoids without mention of complication Comment: Hemorrhoids No date: VertigoPAST SURGICAL HISTORY 2017: COLONOSCOPY Comment: 2003: ENTEROLSS FRING INTSTINAL ADHESION SPX 11-05-11: HEMORRHOIDECTOMY INT AND XTRNL 2/> COLUMN/MIRIAM Comment: Dr. Pope 1988: PAST SURGICAL HISTORY OF Comment: CRYOCAUTERY CERVICAL DYSPLASIA 1999: PUNCTURE ASPIRATION CYST BREAST 07/31/2013: SIGMOIDOSCOPY FLX DX W/COLLJ SPEC BR/WA IF PFRMD Comment: Sigmoidoscopy, flexible FAMILY HISTORY Problem Relation Age of Onset Breast Cancer Mother AT AGE 60 ; DOING WELL AT 80 [03/19/06] Cancer Father bladder cancer No Known Problems Sister No Known Problems Sister No Known Problems Sister No Known Problems Brother Hypertension Son No Known Problems Son No Known Problems Daughter Cancer Maternal Grandmother 58 OVARIAN cancer Heart Paternal Grandmother SOCIAL HISTORY Social History Tobacco Use Smoking status: Every Day Packs/day: 0.50 Years: 20.00 Additional pack years: 0.00 Total pack years: 10.00 Types: Cigarettes Smokeless tobacco: Never Vaping Use Vaping Use: Never used Substance Use Topics Alcohol use: Yes Alcohol/week: 3.0 standard drinks of alcohol Types: 3 Cans of Beer (12oz) per week Comment: Rarely Drug use: No REVIEW OF SYSTEMS Abdomen: No abdominal pain, nausea, vomiting, diarrhea, or constipation. No bloating, early satiety, indigestion, or increased flatulence. Bladder: No dysuria, gross hematuria, urinary frequency, urinary urgency, or incontinence Breast: No breast lumps, nipple d/c, overlying skin changes, redness or skin retraction Allergies and current medication updated:Yes EXAM: BP 100/64 Ht 5' 1 (1.55m) Wt 156 lb 9.6 oz (71.0kg) LMP 10/03/2011 BMI 29.60 kg/(m2). GENERAL: pleasant, female in no apparent distress HEENT: Normocephalic, atraumatic, mucus membranes moist, and no lesions NECK: full range of motion DERMATOLOGY: Normal, without lesions, non-icteric, and non-hirsute BREAST: soft, non-tender, symmetric, no dominant mass, normal nipple-areolar complex, no lymphadenopathy, and no nipple discharge CHEST: Normal inspiratory effort ABDOMEN: soft, non-tender, and no masses PELVIC: external genitalia normal, normal Bartholin's glands, urethra, Shalimar's glands, no vulvar lesions, no cervical lesions, good vaginal support, physiologic discharge present, normal appearing perineal body and perianal region BIMANUAL: uterus normal size, shape and consistency, no adnexal masses, and non-tender RECTOVAGINAL: deferred. NEURO: exam grossly non-focal EXTREMITIES: normal ASSESSMENT/PLAN: 1) Health maintenance: Pap done with HPV. Mammogram ordered Nutrition, exercise and routine health maintenance exams reviewed. Colon cancer screening: up to date with screening TSH/lipids/glucose: ordered 2) Follow up one year or sooner as needed Niurka Francois DO [facility] 05-18-2024 History of Presen t illness Narrative Scientific Director offered: Patient declines. Esther is a 63 year old who presents for an annual gynecologic exam without complaints. Postmenopausal: Yes, no PMB HRT use: No. 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 Technician History LMP: 10/03/2011, Postmenopausal Age at Menarche: Age at First : Age at Menopause: Cartography Technician History Comments: Sexual Activity: Yes; Male; Postmenopausal Contraception: No contraception data on record PAST MEDICAL HISTORY No date: Degeneration of cervical intervertebral disc Comment: DEGENERATED DISK DISEASE CERVICAL-NO MYELOPATHY No date: Diffuse cystic mastopathy No date: Excessive or frequent menstruation Comment: resolved No date: Irregular menstrual cycle Comment: Irregular periods - resolved No date: Irritable bowel syndrome 1988: Moderate dysplasia of cervix No date: Symptomatic menopausal or female climacteric states No date: Unspecified hemorrhoids without mention of complication No date: Unspecified hemorrhoids without mention of complication Comment: Hemorrhoids No date: VertigoPAST SURGICAL HISTORY 2017: COLONOSCOPY Comment: 2003: ENTEROLSS FRING INTSTINAL ADHESION SPX 11-05-11: HEMORRHOIDECTOMY INT & XTRNL 2/> COLUMN/MIRIAM Comment: Dr. Pope 1987: PAST SURGICAL HISTORY OF Comment: CRYOCAUTERY CERVICAL DYSPLASIA 1998: PUNCTURE ASPIRATION CYST BREAST 07/31/2013: SIGMOIDOSCOPY FLX DX W/COLLJ SPEC BR/WA IF PFRMD Comment: Sigmoidoscopy, flexible FAMILY HISTORY Problem Relation Age of Onset Breast Cancer Mother AT AGE 60 ; DOING WELL AT 80 [03/19/06] Cancer Father bladder cancer No Known Problems Sister No Known Problems Sister No Known Problems Sister No Known Problems Brother Hypertension Son No Known Problems Son No Known Problems Daughter Cancer Maternal Grandmother 58 OVARIAN cancer Heart Paternal Grandmother SOCIAL HISTORY Social History Tobacco Use Smoking status: Every Day Packs/day: 0.50 Years: 20.00 Additional pack years: 0.00 Total pack years: 10.00 Types: Cigarettes Smokeless tobacco: Never Vaping Use Vaping Use: Never used Substance Use Topics Alcohol use: Yes Alcohol/week: 3.0 standard drinks of alcohol Types: 3 Cans of Beer (12oz) per week Comment: Rarely Drug use: No REVIEW OF SYSTEMS Abdomen: No abdominal pain, nausea, vomiting, diarrhea, or constipation. No bloating, early satiety, indigestion, or increased flatulence. Bladder: No dysuria, gross hematuria, urinary frequency, urinary urgency, or incontinence Breast: No breast lumps, nipple d/c, overlying skin changes, redness or skin retraction Allergies and current medication updated:Yes EXAM: BP 100/64 Ht 5' 1 (1.55m) Wt 156 lb 9.6 oz (71.0kg) LMP 10/03/2011 BMI 29.60 kg/(m^2). GENERAL: pleasant, female in no apparent distress HEENT: Normocephalic, atraumatic, mucus membranes moist, and no lesions NECK: full range of motion DERMATOLOGY: Normal, without lesions, non-icteric, and non-hirsute BREAST: soft, non-tender, symmetric, no dominant mass, normal nipple-areolar complex, no lymphadenopathy, and no nipple discharge CHEST: Normal inspiratory effort ABDOMEN: soft, non-tender, and no masses PELVIC: external genitalia normal, normal Bartholin's glands, urethra, Shalimar's glands, no vulvar lesions, no cervical lesions, good vaginal support, physiologic discharge present, normal appearing perineal body and perianal region BIMANUAL: uterus normal size, shape and consistency, no adnexal masses, and non-tender RECTOVAGINAL: deferred. NEURO: exam grossly non-focal EXTREMITIES: normal ASSESSMENT/PLAN: 1) Health maintenance: Pap done with HPV. Mammogram ordered Nutrition, exercise and routine health maintenance exams reviewed. Colon cancer screening: up to date with screening TSH/lipids/glucose: ordered 2) Follow up one year or sooner as needed Niurka Frnacois DO documented in this encounter [facility] Evaluation note Diagnosis Onset Date Aphthous ulcer of mouth acut e Contact with or suspected ex posure to other viral communicable disease acute URI (upper respiratory infection) [facility] Work Phone: Evaluation note* Diagnosis Encounter for gynecological examination (general) (routine) without abnormal findings- Primary Encounter for screening for human papillomavirus (HPV) Special screening examination for human papillomavirus (HPV) Pap smear for cervical cancer screening Screening for malignant neoplasm of the cervix Encounter for screening mammogram for breast cancer Well woman exam Routine general medical examination at a health care facility [facility] Diagnosis Encounter for screening mammogram for breast cancer [facility] Diagnosis LGSIL on Pap smear of cervix- Primary [facility]* Diagnosis Pap smear abnormality of cervix with LGSIL- Primary 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) Vaginal high risk human papillomavirus (HPV) DNA test positive [facility] noteNo assessment information availableIndiana [facility] Work Phone: Reason for referral (narrative)* Diagnostic Procedure Only (Routine) - Authorized Specialty Diagnoses / Procedures Referred By Adam t Referred To Contact [facility] Diagnoses Encounter for screening mammogram for breast cancer Procedures DO SCREENING W MARILYN SCREENING DIGITAL BREAST TOMOSYNTHESIS BI SCREENING MAMMOGRAPHY BI 2-VIEW BREAST INC CAD Niurka Francois MD [address] [place] [address] [facility] [address] [place] [address] Referral ID Status Reason Start Date Expiration Date Visits Requested Visits Authorized [id number] Authorized Auto-Generat ed Referral 05/18/2024 06/17/2025 1 1 [facility] for referral (narrative)* Diagnostic Procedure Only (Routine) - Closed Specialty Diagnoses / Procedures Referred By Adam sena Referred To Contact [facility] Diagnoses Encounter for screening mammogram for breast cancer Procedures DO SCREENING W MARILYN SCREENING DIGITAL BREAST TOMOSYNTHESIS BI SCREENING MAMMOGRAPHY BI 2-VIEW BREAST INC CAD Niurka Francois MD [address] [place] [address] [facility] [address] [place] [address] Referral ID Status Reason Start Date Expiration Date V isits Requested Visits Authorized [id number] Closed Auto-Generate d Referral 05/18/2024 06/17/2025 1 1 [facility] for referral (narrative)* Outpatient Procedure (Routine) - Authorized Specialty Diagnoses / Procedures Referred By Adam sena [facility] Diagnoses LGSIL on Pap smear of cervix Procedures COLPOSCOPY COLPOSCOPY CERVIX BX CERVIX & ENDOCRV CURRETAGE COLPOSCOPY ENTIRE VAGINA W/CERVIX IF PRESENT Cindi Stover APRN.CNP [address] [place] [address] Niurka Francois MD [address] [place] [address] Referral ID Status Reason Start Date Expiration Date Visits Requested Visits Authorized [id number] Authorized Auto-Generat ed Referral 06/08/2024 09/06/2024 1 1 [facility] for referral (narrative)* Outpatient Procedure (Routine) - New Request Specialty Diagnoses / Procedures Referred By Adam sena Referred To Contact [facility] Diagnoses Pap smear abnormality of cervix with LGSIL Vaginal high risk human papillomavirus (HPV) DNA test positive Procedures COLPOSCOPY COLPOSCOPY CERVIX BX CERVIX & ENDOCRV CURRETAGE Niurka Francois MD [address] [place] [address] [facility] [address] [place] [id number] Referral ID Status Reason Start Date Expiration Date Visits Requested Visits Authorized [id number] New Request Auto-Generat ed Referral 06/29/2024 06/29/2025 1 1 [facility]ative)No reason for referral information availableMorley Locu Services Work Phone: Reason for visit Narrative* Diagnostic Procedure Only (Routine) - Closed Specialty Diagnoses / Procedures Referred By Adam sena Referred To Contact [facility] Diagnoses Encounter for screening mammogram for breast cancer Procedures DO SCREENING W MARILYN SCREENING DIGITAL BREAST TOMOSYNTHESIS BI SCREENING MAMMOGRAPHY BI 2-VIEW BREAST INC CAD Niurka Francois MD [address] [place] [address] [facility] [address] [place] [phone] Referral ID Status Reason Start Date Expiration Date V isits Requested Visits Authorized [id number] Closed Auto-Generate d Referral 05/18/2024 06/17/2025 1 1 [facility] Chief Complaint and Reason for Visit Chief Complaint COVID TEST/SYMPTOMAT IC Fever, unspecified Reason for Visit Aphthous ulcer of mo uth Contact with or suspected exposure to other viral communicable disease URI (upper respiratory infection) Chief Complaint Admit Date concern for uti April 01, 2025 10:4 4am Family History Relationship Condition Age at Onset Recorded Date/T scott mother Malignant neoplasm Unknown father Malignant neoplasm Unknown Summary Purpose Advance Directives No Advanced Directives Records FoundNo Advanced Directives Records Found Additional Source Comments Goals (unrecognized section and content) Goals may be documented in a n alternate sectionGoals may be documented in an alternate section Source Comments (unrecognize d section and content) In the event this informatio n is protected by the Federal Confidentiality of Alcohol and Drug Abuse Patient Records regulations: The Federal rules restrict any use of the information to criminally investigate or prosecute any alcohol or drug abuse patient.[facility] the event this information is protected by the Federal Confidentiality of Alcohol and Drug Abuse Patient Records regulations: The Federal rules restrict any use of the information to criminally investigate or prosecute any alcohol or drug abuse patient.[facility] Hospital[facility] the event this information is protected by the Federal Confidentiality of Alcohol and Drug Abuse Patient Records regulations: The Federal rules restrict any use of the information to criminally investigate or prosecute any alcohol or drug abuse patient.[facility] Hospital[facility] the event this information is protected by the Federal Confidentiality of Alcohol and Drug Abuse Patient Records regulations: The Federal rules restrict any use of the information to criminally investigate or prosecute any alcohol or drug abuse patient.[facility] Hospital[facility] the event this information is protected by the Federal Confidentiality of Alcohol and Drug Abuse Patient Records regulations: The Federal rules restrict any use of the information to criminally investigate or prosecute any alcohol or drug abuse patient.[facility] Reason for Visit (unrecogniz ed section and content) Reason Comments Well Woman Reason Comments Results Reason Comments Colposcopy Specialty Diagnoses / Procedures Referred By Adam sena Referred To Contact [facility] Diagnoses LGSIL on Pap smear of cervix Procedures COLPOSCOPY COLPOSCOPY CERVIX BX CERVIX & ENDOCRV CURRETAGE COLPOSCOPY ENTIRE VAGINA W/CERVIX IF PRESENT Cindi Stover APRN.COMMUNICATION INSTRUCTOR [address] [facility] [place] [id number] Niurka Francois MD [address] [place] [address] Referral ID Status Reason Start Date Expiration Date V isits Requested Visits Authorized [id number] Closed Auto-Generate d Referral 06/08/2024 09/06/2024 1 1 Care Teams (unrecognized sec tion and content) Sanitation Manager Relationship Specialty Start Date End Date Hemal Garcia MD [address] [place] [address] PCP - General 11/12/03 Sanitation Manager Relationship Specialty Start Date End Date Hemal Garcia MD [address] [facility] [place] [address] PCP - General 11/12/03 Sanitation Manager Relationship Specialty Start Date End Date Hemal Garcia MD [address] [place] [address] PCP - General 11/12/03 Sanitation Manager Relationship Specialty Start Date End Date Hemal Garcia MD [address] [place] [address] PCP - General 11/12/03 06/02/24 Cj Gann MD [address] [facility] [address] [place] [address] PCP - General Internal Medicine 06/03/24 Sanitation Manager Relationship Specialty Start Date End Date Cj Gann MD [address] [facility] [address] [place] [address] PCP - General Internal Medicine 06/03/24 Team Status: Active Member Role Status Dates Dr. Hemal Garcia MD Family Provider Active Team Status: Inactive Member Role Status Dates Sergei SABA PA Attending Provider Active Sta rt: April 01, 2025 End: April 01, 2025 INFORMATION SOURCE (unrecogn ized section and content) DATE CREATED AUTHOR 07/07/2024 [facility] DATE CREATED AUTHOR AUTHOR'S ORGANIZ ATION 10/05/2024 [facility] FOR RECORDS PERTAINING TO PATIENTS WHO ARE OR HAVE BEEN ENROLLED IN A CHEMICAL DEPENDENCY/SUBSTANCEABUSE PROGRAM, SOME INFORMATION MAY BE OMITTED. This clinical summary was aggregated from multiple sources. Caution should be exercised in using it in the provision of clinical care. This summary normalizes information from multiple sources, and as a consequence, information in this document may materially change the coding, format and clinical context of patient data. In addition, data may be omitted in some cases. CLINICAL DECISIONS SHOULD BE BASED ON THE PRIMARY CLINICAL RECORDS. [employer] provides no warranty or guarantee of the accuracy or completeness of information in this document.
== END | disposition home or self-care (01) ==
LOC: LABSPEC 12:14
PROVIDERS: Referring Provider Physician Assistant Surgical; Visit Provider Physician Assistant Surgical
DX: R30.0 Dysuria (principal)
CPT/HCPCS: 87077; 87086; 87088; 87186

== ENCOUNTER → 2025-05-03 | Outpatient (CLI) | payer OTHER, SELFPAY ==
[2025-05-03 17:52] LABS: Hematocrit 42.1 % (37-47); Hemoglobin 13.8 g/dL (12.0-15.0); Immature Granulocytes Count 0.020 X10^3/uL (0.0-0.0); Mean Corp Hgb Conc 32.8 g/dL (32-36); Mean Corpuscular Volume 93.8 fL (81-99); Mean Platelet Vol. 9.9 fl (6.2-12.0); NRBC Flagged by Analyzer 0 % (0-5); Platelet Count 246 K/mm3 (150-450); RBC Distribution Width CV 12.4 % (11.6-14.6); RBC Distribution Width SD 43.1 fl (35.1-43.9); Red Blood Count 4.49 M/mm3 (4.2-5.4); White Blood Count 8.0 K/mm3 (4.4-11.0)
--- OUTSIDE RECORDS SUMMARY | 2025-05-03 21:27 | XMS RPT_ITS | CCD ---
Author Organization [facility] Care Team Providers Care Director Religious Education Name Role Phone Dr. Hemal Cortez Primary Care Provider Dr. Hemal Cortez Referring Provider WANDY Girard Attending Provider Hemal Garcia MD Primary Care Provider Hemal Garcia MD Primary Care Provider [phone] Cj Gann MD Primary Care Provider CINDI STOVER Referring Unavailable CJ GANN Primary Care Unavailable ALVARADOWELLBRITTA Attending Unavailable WISWELL, NIURKA Referring Unavailable HEMAL GARCIA Primary Care Unavailable WISWELL, NIURKA Referring Unavailable GARCIA HEMAL K Primary Care Unavailable NIURKA FRANCOIS Attending Unavailable GARCIA, HEMAL K Primary Care Unavailable Sergei Girard Attending Provider Sergei Girard Referring Provider Sergei Girard Attending Unavailable Jaxon SABA, Sergei Referring Unavailable Jaxon SABA, Sergei Attending Unavailable Jaxon SABA, Sergei Referring Unavailable Jaxon SABA, Sergei Attending Unavailable Sergei Girard Attending Unavailable Allergies Allergy Classification Reported Allergen(s) Allergy Type Date of Onset Reaction(s) Facility (6 sources) Grass pollen; Translations: [GRASS POLLEN] Propensity to adverse reactions 5 Intolerance [facility] Work Phone: (6 sources) Pollen; Translations: [POLLEN] Propensity to adverse reactions 5 Intolerance [facility] (6 sources) Ragweed; Translations: [RAGWEED] Propensity to adverse reactions 5 Intolerance [facility] (2 sources) Nitrofurantoin Drug Allergy 5 Other [facility] Comment on above: headache (1 source) Nitrofurantoin Drug Allergy [facility] Repository Medications Current Medications Medication Drug Class(es) Dates Sig (Normalized) Sig (Original) cephalexin 500 mg oral capsule (1 source) Cephalosporin Antibacterial Start: 04-03-2025 take 1 capsule by mouth twice daily Cephalexin 500 mg capsule Active 500 mg PO TWICE A DAY 10 5 April 03, 2025 12:00am April 07, 2025 12:00am Loratadine (5 sources) LORATADINE (CLARITIN ORAL) Take by mouth. Active LORATADINE (CLAR ITIN ORAL) Take by mouth. 0 Active nitrofurantoin, macrocrystals 25 mg / nitrofurantoin, monohydrate 75 mg oral capsule (8 sources) Nitrofuran Antibacterial Start: 04-01-2025 take 1 [...] capsule Discontinued 1 NMA PO Q12H 14 September 04, 2024 1:00am September 10, 2024 [...] Sig (Original) azithromycin 250 mg oral tablet (2 sources) Macrolide Antimicrobial Start: 11-03-2023 End: 12-05-2023 Azithromycin [...] Active loperamide hydrochloride 2 mg oral capsule (8 sources) Opioid Agonist Start: 09-06-2021 End: 12-05-2023 [...] obstructive pulmonary disease and bronchiectasis (2 sources) Bronchitis; Translations: [Bronchitis, not specified as acute or chronic] 11-03-2023 Episodic Diseases of mouth; excluding dental (6 sources) Aphthous ulcer of mouth; Translations: [Recurrent oral aphthae] Episodic Genitourinary symptoms and ill-defined conditions (4 sources) Dysuria; Translations: [Dysuria] Onset: 04-06-2025 12-05-2023 Episodic Hemorrhoids (5 sources) Hemorrhoids; Translations: [Unspecified hemorrhoids] 04-23-2024 Episodic Immunizations and screening for infectious disease (20 sources) Patient encounter status; Translations: [Encounter for screening for COVID-19] Onset: 09-19-2009 Resolved: 10-03-2011 Episodic Menopausal disorders (5 sources) Menopausal symptom; Translations: [Menopausal and female climacteric states] Onset: 09-19-2009 09-19-2009 Chronic Other upper respiratory infections (2 sources) Sinusitis; Translations: [Chronic sinusitis, unspecified] 11-03-2023 Chronic Other upper respiratory infections (6 sources) Upper respiratory infection; Translations: [Acute upper [...] Value Interpretation Reference Range Facility Urine Cultureon 04-03-2025 [facility] Escherichia coli [place] Count 50,000-80,000 Escherichia coli: REACTION Ampicillin Islt JOE >=32 Ampicillin+Sulbac Islt JOE >=32 R Cefepime Islt JOE <=0.12 S cefTRIAXone Islt JOE <=0.25 S Ciprofloxacin Islt JOE <=0.06 S B-Lactamase Extended Susc Islt NEG Gentamicin Islt JOE <=1 S levoFLOXacin Islt JOE <=0.12 S Meropenem Islt JOE <=0.25 S Nitrofurantoin Islt JOE <=16 S Pip+Tazo Islt JOE <=4 S TMP SMX Islt JOE <=20 S Normal [facility] Comment on above: Performed By: #### M 100.1133 #### [facility] Laboratory [address] [place], [address] Laboratory - Chemistry and C hemistry - challengeOrdered By: Sergei Coates on 04-01-2025 Bilirubin Ql (U) Negative [facility] Glucose Ql (U) Negative [facility] Ketones Ql (U) Negative [facility] pH (U) 5.0 [pH] [facility] Specific gravity (U) [Rel density] 1.020 [facility] Urobilinogen (U) [Mass/Vol] 0.9464660 mg/dL [facility] Laboratory - Hematology and Cell countsOrdered By: Sergei Coates on 04-01-2025 Hemoglobin Ql (U) Moderate [facility] Laboratory - Specimen inform ationOrdered By: Sergei Coates on 04-01-2025 Clarity (U) Clear [facility] Color (U) ORANGE [facility] Laboratory - UrinalysisOrder ed By: Sergei Coates on 04-01-2025 Nitrite Ql (U) Positive [facility] Protein Ql (U) 1+ [facility] No Panel InformationOrdered By: Sergei Coates on 04-01-2025 Urine Leukocytes Positive [facility] Urine Non-Hemolyzed Blood Non-Hemolyzed [facility] Urgent Care Visit Reporton 0 04-01-2025 Urgent Care Visit Report [facility] [address] [place] [address] OFFICE VISIT Date of Service: 04/01/25 MR#: [id number] Acct: [id number] Name: ROCKY KIRAN MARCH Rep #: [id number] : 1960 Provider: WANDY Gandara Age/Sex: 64/F Location: [facility] Status: Signed Intake Vital Signs 12/05/23 15:13 04/01/25 10:45 Height 5 ft 1 in BP 122/80 H Position Sitting Respiration 16 Pulse 79 Temp 98.3 F Temp Source Oral Pulse Oximetry (%) 95 Oxygen Delivery Method room air Intake Visit Reasons: concern for uti Chief Complaint: possible uti sx Accompanied by: Self Allergies nitrofurantoin (From Macrobid) Adverse Reaction (Mild, Verified 04/01/25 10:55) Other Medications ???Medication ???Instructions ???Recorded ???Confirmed ???Type nitrofurantoin 1 cap PO Q12H 7 days #14 caps 03/1404/01/25 Rx monohydrate/macrocrys tals 100 mg capsule Nurse's Note: Patient has UTI symptoms. Patient has burning and urgency that has been going on for 3 days. Patient has been taking OTC azo for the last 2 days. [facility] Medical History Encounter for screening for COVID-19 URI (upper respiratory infection) Family History Mother Cancer Father Cancer Social History Smoking Status: Current every day smoker Tobacco: How many years used: 20 alcohol intake: current alcohol intake frequency: 0-2 drinks per day HPI HPI Chief Complaint: possible uti sx Details: ROCKY KIRAN, is a 64 F who presents to the office today for complaint of dysuria and increased urinary urgency/frequency for the past 3 days. No fever, chills or sweats. No nausea, vomiting or diarrhea. No pelvic or abdominal pain. No loss [...] normal Mental Status: mental status grossly normal Results POC Urinalysis Dip (Clinic) Office Urine Color ORANGE Last Edit by Ladan Ceballos MA on 04/01/25 10:57 Office Urine Clarity Clear Last Edit by Ladan Ceballos MA on 04/01/25 10:57 Office Urine Glucose Negative Last Edit by Ladan Ceballos MA on 04/01/25 10:57 Office Urine Ketones Negative Last Edit by Ladan Ceballos MA on 04/01/25 10:57 Off Ur Spec [place] 1.020 Last Edit by Ladan Ceballos MA on 04/01/25 10:57 Office Urine pH 5.0 Last Edit by Ladan Ceballos MA on 04/01/25 10:57 Office Urine Bilirubin Negative Last Edit by Ladan Ceballos MA on 04/01/25 10:57 Office Urine Urobilinogen 0.2 mg/dL Last Edit by Ladan Ceballos MA on 04/01/25 10:57 Office Urine Blood Moderate Last Edit by Ladan Ceballos MA on 04/01/25 10:57 Office Urine Blood Hemolyzed Non-Hemolyzed Last Edit by Ladan Ceballos MA on 04/01/25 10:57 Office Urine Protein 1+ Last Edit by Ladan Ceballos MA on 04/01/25 10:57 Office Urine Nitrate Positive Last Edit by Ladan Ceballos MA on 04/01/25 10:57 Off Ur Leukocytes Positive Last Edit by Ladan Ceballos MA on 04/01/25 10:57 Coding Level of Care Code Off vis,est,level 3 Diagnoses Dysuria R30.0 Assessment and Plan Assessment and Plan (1) Dysuria: Status: Acute Orders: Orders POC Urinalysis Dip (Clinic) Today R30.0 - Dysuria Culture, Urine Today R30.0 - Dysuria Medications: New nitrofurantoin monohyd/m-cryst 100 mg administer with a meal/food; swallow whole; do not open, crush, dissolve , or chew 1 cap PO Q12H 14 caps 0RF 7 days Plan Macrobid as prescribed today. Encouraged to [...] understanding and agreement with all the above. 04/01/25 1235 Date Sergei SABA Cosignyeny Signature: Date (if applicable) CC: Normal [facility] Urine cultureOrdered By: Anirudh Coates on 04-01-2025 Bacteria identified Cx Nom (U) Escherichia coli Abnormal [facility] Urine Cultureon 09-06-2024 [facility] Escherichia coli [place] Count >100,000 Escherichia coli: REACTION Ampicillin Islt [...] TMP SMX Islt JOE >=320 R Normal [facility] Comment on above: Performed By: #### M 100.2200, L400.0001 #### [facility] [address] [place], [place], [address] Urgent Care Visit Reporton 1 11-04-2023 Urgent Care Visit Report [facility] [address] [place], [place] [address] OFFICE VISIT Date of Service: 09/04/24 MR#: [id number] Acct: [id number] Name: ROCKY KIRAN Rep #: [id number] : 1960 Provider: WANDY Gandara Age/Sex: 64/F Location: [facility] Status: Signed Intake Vital Signs 12/05/23 15:13 [...] No Known Allergies Allergy (Verified 09/04/24 12:54) PFSH Medical History Encounter for screening for [...] all the above. 09/04/24 1258 Date Sergei SABA Cosigner Signature: Date (if applicable) CC: Normal [facility] Urinalysis, Completeon 09-04 BACTERIA 2+ /hpf Normal None Seen [facility] Comment on above: Order Comment: CLEAN CATCH Performed By: #### M 100.2200, L400.0001 #### [facility] [address] [place], [address] EPI,SQUAMOUS 0-5 SEEN Normal 5-10 [facility] Comment on above: Order Comment: CLEAN CATCH Performed By: #### M 100.2200, L400.0001 #### [facility] [address] [place], [address] Mucus Ql (Urine sed) 1+ /hpf Normal [facility] Comment on above: Order Comment: CLEAN CATCH Performed By: #### M 100.2200, L400.0001 #### [facility] [address] [place], [address] RBC 0-5 SEEN Normal 0-5 [facility] Comment on above: Order Comment: CLEAN CATCH Performed By: #### M 100.2200, L400.0001 #### [facility] [address] [place], [address] WBC 10-25 SEEN Normal 0-5 [facility] Comment on above: Order Comment: CLEAN CATCH Performed By: #### M 100.2200, L400.0001 #### [facility] [address] [place], [address] SURGICAL PATHOLOGYOrdered By : Graham Steinberg on 06-30-2024 Case Report Surgical Pathology Report Case: [id number] Authorizing Provider: Niurka Francois MD Collected: 06/29/2024 03:56 PM Ordering Location: OB/Gynecology Received: 06/29/2024 04:44 PM Pathologist: Graham Steinberg MD Specimens: A) - Endocervix, Curettings, ECC B) - Cervix, Biopsy, 12 [facility] Work Phone: Clinical History s6buxJFdWKFzr1qbFCLt b EDkLiMyJsUxTxBtWaq7MZ UldxF9Ndh4EYZcUDjabM8 bQUVcOXtuN6laoyVfeVXp GSHsHEn3tY9fiYpywM1lR kCtKoJeYQQRQ3pZYRIqk3 GzyBx6VZARZLAwuUBqII0 = [facility] Work Phone: FINAL DIAGNOSIS l6nhbEBzDZIjnQOhBLdm M oeslbPsZCDxrJWbX6Hshf lhXJhaLV9nDW3biEnwlHC zcZGlWGMgZkNrj1ied924 iDJmx0pbEUZDognlrWw0m MimB95bz0L2EklvZ09ncL LjPMP1FMSbWQIppGFmKFC iGGK5MPLkaRTsZ8ygGMVc NQ4oyduuMLftPJelNKThw ZU7VMCzvMNdO9SrIAHpBH daETLqimd2CkItBm1ahLH yeTcyMFxwYXJkXHBsYWlu SZVaVuYutHKjWVJqRO3sB M4zs7GgwsOlbDylV4ArTP S3ECibOeppSSHtKnSmzMA rAA6sYHFlkcywwlPkpHZc iW67lbWnnlPdAL8ry9Etw eHkN6CbUIaiWS8ylXbipb EwoQl9yMOolFXzAqhmQZJ ccGFyXHBhclxiIEIuIENl ypWycJtqYPJwYYY5CQMrV HCzs7EnyZtvrWScMLFkIL AwdaSjCS3XQR1xW65yo8X 1HK8iiESytNCie6HqHgih YXJccGFyfQ== [facility] Work Phone: Gross Description f7krmAHjGGDpvETUTBE8 M MQnOA1ezPzarHb6pYjwSX JdsvA5cPBsQQkxu0auSDB 8a8ostgDZDbbiNQGjTF9l LMldVRMgMA2gWgOtBCCcI mYxXHBhcGVydzEyMjQwXH KfrRGyoPD1CDPwQM7pzek kYHwmOGjhNXBwbjO0FPQi sLMyU5VpCNBzBE8qohmfA LL0KIEHKzobOa2zzOAdbB tcZjFcZmNoYXJzZXQwXGZ fd3sojvTAeehzjLy9oE5K UKUcN0WqAL2If0kkBMBbw CHzMUP3EJktc3vyPUnuWL H9BTYdKLOiHWDgOC7BDcF cDPxvDSzfRBR8JeZ4NFj1 KGLTOEIsOFM6Ver0SaKoP Ed5JKocJBgnwZCeFDXdBY IoOAFkJVledmV1s1jwLXI muOSmXEW6DOmfs1nkFPms VQU0GCKpBzImKRQnSI1NT fQvLYfwTQujVRV8EpD2IH y3BRTAXcIwFrJhEUdhTXX zLFYhKJd0TQw8HTwUYzOz Oid9YzO2ZHZ9RxO4UQVfX iBcXHQgMiBcXHNzIDMgXF uswJLwGO7ggZogNBCmYF3 KKXBkEOrsDTPyFyRbWE3z OD0fk2PbqeThiHrhB1VxA UM3kA9ok5fqeWNuxArzBF IgDQpccGFyZCANClxwbGF pblxsdHJjaFxmczIyXGVw gTWBVZH4YW9iWNJXNzbel WCiNHDxo5HzMIjabMsgET NhMzAgDQpcZnMyMCBSZWN cnFZtOMAypjGbq4PuZRcy biBhcmUgbXVsdGlwbGUgd PInIKbpwHYyRKBtk9L9YU AnNZVwHOI3WDJtJ71atlU pTR3uESHhd3Z0QBHoA8nf ULnhrOhuJfG0sfPfIxtjw FUhPoSxbKM1XW0hWPEeCz KJg9TpoTl3WED3Xc7rmCN hYECnbaNtikQbX5Wzy9Y1 bVZeEObnDEUyQ11aw5HWx 7Zyx9jvvNujp5NvwMYlYO 4wpRXfWJ4Qa1hnYTXnkVI pUWP3TOzll4zsCZvvXJG0 HQSeNgAqJWWkAG9HAePoA QmhTDquPXM7IfO1KUa4JU BPVlMgIiAgNTgzNDQyMTY gXXd8XAu4DPlUDoSiTrj1 ZtQ9KVamKJA9VMNlAiNyN HQgMiBcXHNzIDMgXFxmbC WbYX1tbKtrZXJhUHOuHNB 3RFRggSCVj8KpHTXsRZpz XgGzDiIPBrFMRQY3rAdoN LCtr9GubUwvTKItITynkY FyZCANClxwbGFpblxsdHJ jaFxmczIyXGVwaWNOZXN0 QS0tBMCPRtuimQYjKKPtm 2IzMFxlcGljWHNiMzAgDQ pcZnMyMCBSZWNlaXZlZCB rsoBya9SzHWhntoWctkTk sRLrvTqpxCOjiRrhO1BxW N5qUEJqyf92rUa0MPclb3 8agAU6vDEthHXbYDbuemF oEGOljgtsbM0gDN38LDvs LM0bZMzqUI8dKVJxObZYf 9VaeKf8QLI6Nc8unZQwTS FbwkSfvfBkM4Nhz8N5tJH uIFxwYXIgDQpccGFyZFxs eJXxLYJgARfyzFSfLL6WE 8Zgk2IyEAzzyJtbSVNew4 8kbKTqJt7zcUVwYTP1BNA sZXZlbGFuZCBDbGluaWMs SGe7NCEqGAObmGcpQWY4X V9iILWxOSWruMXhIQplJ3 vwGRWsGSJzqEHxIH8UWTH hciANClxzYTMwXGVwaWNY n4XwPENJCqIUEeAhCF5iX w3yDDU6SBp3KAUjGZ3UXq mutOlaXeMuoOIkHsL9WIV cdIJcVWE2ZO3qnLhxGGCr V3IeA4EmcxK1ZDLlbfDPB lbdINAeUT4ZULBtRpObUH p9 [facility] Work Phone: Performing Lab l9drjTFrNKJvfFOuXfLe M EWiFCVmb5qcHVIscYKvGi EwMzNcZnRuYmpcdWMxXGR qKfTwv2mpg242jQKvo9no CTQkHyV6oJWnGBCctHWtB 814IHClDKzsv6oos1YwCT LaeEXcv8L5VUHYhtomqNr 8aTjpL55hj6T8StuiX6cm OIXaWAEgS6KrAE7rRMLhO pu7UQE5ZLV2OAYfSDFzB6 ZrKK7jYDFobQTdOJd2o5w fgSyaUYOhPQC2e6deYXzo gxBlBO5kbm3ytNk6e2yku zEgRGVmYXVsdCBQYXJhZ3 DuaZnbRi6yrVy4wVbfLww sWNS3Glj4UE0qqk29wkz8 xWioCKUsbcyuQhU0DOiqW OGcybgyNKh4VCnsDXPcnI R4UMIzuWRzU2HcRDhjVI0 kbow5TTR4QXhuCAKdTrP3 NDBcaGVhZGVyeTcyMFxmb 545KBR8PxAhIW7iI5Qos8 Z1iZ5kgIWcUHMfrQIgBfZ fEZOhmo9fpUBiRSpvm0Sw RGY6wiE2qIBpyLBwYUDsK P03Arrgs1MtTrklv0IoU8 7rlPC3ZBmwv8hoCY1tMuL 6mqMuRVqxk0qrmT1bMcE1 STnjGS0eHE6tSXPlkQ7qj mxjXHBnYnJkcmhlYWRccG ourlUdCb0xlPbuVJC7KAj xN7tlcP4mPuA7GSheU7ba eI4dZGt7MRlxwPI2RMRmq I1jLU8mskach8wcPJflGP dzVFCjwjY9dfMnCIVtyAE eP2OmjE3sWUMgAN9kyziz c1hvHSQ1STtoTKDiLKX0B uEwHEKex5Rvyud9FvBhm4 VljCVePKceM19fd339FMF lklBrN4kkjHCegdynfCJw eckuNMokhpF9BUPaCTGkY WluXGYxXGZzMjBcbGFuZz EwMzNcaGljaFxmMVxkYmN dEPFxTAfzY1quKlBpZaOt UXSThMWrow5kpZpaNLcbp XWclBOhaQI0dT2qUCVdcu Nxdl4oPGAteLIMhRG0FEk uhcKfO4pkvauaFTE5JLLx HZI9F8htLJXLqmApISYmP GYmgLGfEBDPDGQ0QEE7CC SpQLUFQQBnQMY4AFG1NTY wOTRccGFyXHBhclxwYXJk XHBsYWluXGYwXGZzMjRcc ThrtY1sEmMlJcYiTHveJC 7eULEoK6rybSXuKPQxHOE hN7ffVlArqO2fdHzvZYlz ZjJcZnMyMFxsdHJjaCBMY GJewpL9l3B1TSbfvRTgag xmMVxmczIwXGxhbmcxMDM hYTuqR9aeHtGaNXZxmRol ZCnlw0QnYRZrZDEeNlGzF HuaCID2x2L7YFxdiREqug YXEcVFSJ2hhLUqkkjsEN2 ELlxwbGFpblxmMVxmczIy RIwwywseAYYrQVxtL0kaP iUoJPScjEouNOwjk7UjSS YxXGZzMjJccGFyfQ== [facility] Work Phone: [facility] Work Phone: CNOVon 06-29-2024 CNOV Office Visit (OBGYWM ) Alona KIRAN MARCH ([id number]) 1960 F Date Time Provider Department 06/29/24 3:20 PM NIURKA FRANCOIS OBGYWM During your visit today, we recorded the following information about you: Blood pressure Weight 110/72 70.2 kg Niurka Francois MD 07/06/2024 8:18 AM 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 Esther is a 63 [...] your doctor's office. Referring Provider: CINDI STOVER [[id number]] Phuong (more content not included)... Normal [facility] SURGICAL PATHOLOGYon 024 CASE REPORT Normal [facility] Comment on above: Order Comment: Speci men Type: BLOOD SPECIMEN Ordering Facility: [facility] Address: [address] [place] [address] Result Comment: Surg ical Pathology Report Case: [id number] Authorizing Provider: Niurka Frnacois MD Collected: 06/29/2024 03:56 PM Ordering Location: OB/Gynecology Received: 06/29/2024 04:44 PM Pathologist: Graham Steinberg MD Specimens: A) - Endocervix, Curettings, ECC B) - Cervix, Biopsy, 12 Performed By: #### 2 4331-1 #### [facility] CLIA [id number] [address] [place] [address] [place] [facility] CLIA [id number] [address] [place] [address] [place] #### 3016-3 #### [facility] CLIA [id number] [address] [place] [address] [place] CLINICAL HISTORY Positive Normal [facility] Comment on above: Order Comment: Speci men Type: BLOOD SPECIMEN Ordering Facility: [facility] Address: [address] [place] [address] Performed By: #### 2 4331-1 #### [facility] CLIA [id number] [address] [place], [place] [id number] [place] [facility] CLIA [id number] [address] [place] [address] [place] #### 3016-3 #### [facility] CLIA [id number] [address] [place] [address] [place] FINAL DIAGNOSIS Normal [facility] Comment on above: Order Comment: Speci men Type: BLOOD SPECIMEN Ordering Facility: [facility] Address: [address] [place] [address] Result Comment: A. E ndocervix, curettage: ---Benign squamous and endocervical glandular epithelium. B. Cervix, at 12:00, biopsy: ---Benign squamous mucosa. Performed By: #### 2 4331-1 #### [facility] CLIA [id number] [address] [place] [address] [place] [facility] CLIA [id number] [address] [place] [address] [place] #### 3016-3 #### [facility] CLIA [id number] [address] [place] [address] [place] FINAL PERFORMING LAB Normal [facility] Comment on above: Order Comment: Speci men Type: BLOOD SPECIMEN Ordering Facility: [facility] Address: [address] [place] [address] Result Comment: Diag nostic interpretation performed at [facility], [address] [place] [address] CLIA# [id number] Dining Room Attendant Cafeteria: David Olvera M.D. Performed By: #### 2 4331-1 #### [facility] CLIA [id number] [address] [place] [address] [place] [facility] [id number] [address] [place] [address] [place] #### 3016-3 #### [facility] CLIA [id number] [address] [place] [address] [place] GROSS DESCRIPTION Normal [facility] Comment on above: Order Comment: Speci men Type: BLOOD SPECIMEN Ordering Facility: [facility] Address: [address] [place] [address] Result Comment: A. E ndocervix, Curettings Received in formalin are multiple kong-white, soft feathery segments of tissue aggregating to 0.7 x 0.5 x <0.1 cm. Totally submitted in one cassette. B. Cervix, Biopsy Received in formalin are multiple pieces of kong-white, soft tissue aggregating to 0.8 x 0.1 x 0.1 cm. Totally submitted in one cassette. Gross examination performed at [facility], [address] [place] [address] FFS 06/29/2024 9:52 PM Performed By: #### 2 4331-1 #### [facility] CLIA [id number] [address] [place] [address] [place] [address] [facility] [id number] [address] [place] [address] [place] #### 3016-3 #### [facility] CLIA [id number] [address] [place] [address] [place] CBC panel Auto (Bld)on 06-01 Erythrocyte distribution width (RBC) [Ratio] 12.8 % Normal 11.5-15.0 [facility] Comment on above: Order Comment: Speci men Type: BLOOD SPECIMEN Ordering Facility: [facility] Address: [address] [place] [address] Performed By: #### 2 4331-1 #### [facility] CLIA [id number] [address] [place] [id number] [place] [facility] CLIA [id number] [address] [place] [address] [place] #### 3016-3 #### [facility] CLIA [id number] [address] [place] [address] [place] Hematocrit (Bld) [Volume fraction] 42.9 % Normal 36.0-46.0 [facility] Comment on above: Order Comment: Speci men Type: BLOOD SPECIMEN Ordering Facility: [facility] Address: [address] [id number] Performed By: #### 2 4331-1 #### [facility] CLIA [id number] [address] [place] [address] [place] [facility] CLIA [id number] [address] [place] [address] [place] #### 3016-3 #### [facility] CLIA [id number] [address] [place], [place] [id number] [place] Hemoglobin (Bld) [Mass/Vol] 13.9 g/dL Normal 11.5-15.5 [facility] Comment on above: Order Comment: Speci men Type: BLOOD SPECIMEN Ordering Facility: [facility] Address: [address] [id number] Performed By: #### 2 4331-1 #### [facility] CLIA [id number] [address] [place], [place] [id number] [place] [facility] CLIA [id number] [address] [place] [address] [place] #### 3016-3 #### [facility] CLIA [id number] [address] [place] [address] [place] MCH (RBC) [Entitic mass] 30.2 pg Normal 26.0-34.0 [facility] Comment on above: Order Comment: Speci men Type: BLOOD SPECIMEN Ordering Facility: [facility] Address: [address] [place] [address] Performed By: #### 2 4331-1 #### [facility] CLIA [id number] [address] [place] [address] [place] [facility] CLIA [id number] [address] [place] [address] [place] #### 3016-3 #### [facility] CLIA [id number] [address] [place] [address] [place] MCHC (RBC) [Mass/Vol] 32.4 g/dL Normal 30.5-36.0 [facility] Comment on above: Order Comment: Speci men Type: BLOOD SPECIMEN Ordering Facility: [facility] Address: [address] [place] [address] Performed By: #### 2 4331-1 #### [facility] CLIA [id number] [address] [place] [address] [place] [facility] CLIA [id number] [address] [place] [address] [place] #### 3016-3 #### [facility] CLIA [id number] [address] [place] [address] [place] MCV (RBC) [Entitic vol] 93.1 fL Normal 80.0-100.0 C [facility] Comment on above: Order Comment: Speci men Type: BLOOD SPECIMEN Ordering Facility: [facility] Address: [address] [id number] Performed By: #### 2 4331-1 #### [facility] CLIA [id number] [address] [place] [address] [place] [facility] CLIA [id number] [address] [place] [address] [place] #### 3016-3 #### [facility] CLIA [id number] [address] [place] [address] [place] Nucleated RBC (Bld) [#/Vol] 10*3/uL Normal <0.01 [facility] Comment on above: Order Comment: Speci men Type: BLOOD SPECIMEN Ordering Facility: [facility] Address: [address] [place] [address] Performed By: #### 2 4331-1 #### [facility] CLIA [id number] [address] [place] [address] [place] [facility] CLIA [id number] [address] [place] [address] [place] #### 3016-3 #### [facility] CLIA [id number] [address] [place] [address] [place] Platelet mean volume (Bld) [Entitic vol] 9.6 fL Normal 9.0-12.7 [facility] Comment on above: Order Comment: Speci men Type: BLOOD SPECIMEN Ordering Facility: [facility] Address: [address] [id number] Performed By: #### 2 4331-1 #### [facility] CLIA [id number] [address] [place] [address] [place] [facility] CLIA [id number] [address] [place] [address] [place] #### 3016-3 #### [facility] CLIA [id number] [address] [place] [address] [place] Platelets (Bld) [#/Vol] 255 10*3/uL Normal 150-400 [facility] Comment on above: Order Comment: Speci men Type: BLOOD SPECIMEN Ordering Facility: [facility] Address: [address] [place] [address] Performed By: #### 2 4331-1 #### [facility] CLIA [id number] [address] [place] [address] [place] [facility] CLIA [id number] [address] [place] [address] [place] #### 3016-3 #### [facility] CLIA [id number] [address] [place] [address] [place] RBC (Bld) [#/Vol] 4.61 10*6/uL Normal 3.90-5.20 [facility] Comment on above: Order Comment: Speci men Type: BLOOD SPECIMEN Ordering Facility: [facility] Address: [address] [place] [address] Performed By: #### 2 4331-1 #### [facility] CLIA [id number] [address] [place] [address] [place] [facility] CLIA [id number] [address] [place] [address] [place] #### 3016-3 #### [facility] CLIA [id number] [address] [place] [address] [place] WBC (Bld) [#/Vol] 8.33 10*3/uL Normal 3.70-11.00 [facility] Comment on above: Order Comment: Speci men Type: BLOOD SPECIMEN Ordering Facility: [facility] Address: [address] [place] [address] Performed By: #### 2 4331-1 #### [facility] CLIA [id number] [address] [place], [place] [id number] [facility] CLIA [id number] [address] [place], [place] [address] [place] [address] OF RAINER #### 3016-3 #### [facility] CLIA [id number] [address] [place] [address] OF [facility] CNCOon 06-01-2024 [facility] HNO ID: [id number] Author: COORDINATOR, MAMMOGRAPHY, ? Service: ? Author Type: Physician Type: Letter Filed: 06/01/2024 10:32 Note Text: June 01, 2024 PID: [id number] Alona Kiran [address] [place] [address] Dear Diego Magno, We are pleased to inform you that [...] report will be kept on file at [facility] as part of your permanent medical record and are available for your continuing care. Thank you for allowing us to help in meeting your health care needs. Sincerely, Dr. Contreras Interpreting Radiologist [facility] (Normal over 40) Normal [facility] Comprehensive metabolic 2000 panelon 06-01-2024 Albumin [Mass/Vol] 4.4 g/dL Normal 3.9-4.9 [facility] Comment on above: Order Comment: Speci men Type: BLOOD SPECIMEN Ordering Facility: [facility] Address: [address] [place], [place] [address] Performed By: #### 2 4323-8 #### [facility] CLIA [id number] [address] [place] [address] [place] ALP [Catalytic activity/Vol] 100 U/L Normal 34-123 [facility] Comment on above: Order Comment: Speci men Type: BLOOD SPECIMEN Ordering Facility: [facility] Address: [address] [place] [address] Performed By: #### 2 4323-8 #### [facility] CLIA [id number] [address] [place] [address] [place] ALT [Catalytic activity/Vol] 10 U/L Normal 7-38 [facility] Comment on above: Order Comment: Speci men Type: BLOOD SPECIMEN Ordering Facility: [facility] Address: [address] [place] [address] Performed By: #### 2 4323-8 #### [facility] CLIA [id number] [address] [place] [address] [place] Anion gap [Moles/Vol] 13 mmol/L Normal 8-15 [facility] Comment on above: Order Comment: Speci men Type: BLOOD SPECIMEN Ordering Facility: [facility] Address: [facility] [place] [address] Performed By: #### 2 4323-8 #### [facility] CLIA [id number] [address] [place] [address] [place] AST [Catalytic activity/Vol] 11 U/L Low 13-35 [facility] Comment on above: Order Comment: Speci men Type: BLOOD SPECIMEN Ordering Facility: [facility] Address: [facility] [place] [address] Performed By: #### 2 4323-8 #### [facility] CLIA [id number] [address] [place] [address] [place] Bilirubin [Mass/Vol] 0.3 mg/dL Normal 0.2-1.3 [facility] Comment on above: Order Comment: Speci men Type: BLOOD SPECIMEN Ordering Facility: [facility] Address: [address] [place] [address] Performed By: #### 2 4323-8 #### [facility] CLIA [id number] [address] [place] [address] [place] Calcium [Mass/Vol] 9.6 mg/dL Normal 8.5-10.2 [facility] Comment on above: Order Comment: Speci men Type: BLOOD SPECIMEN Ordering Facility: [facility] Address: [address] [place] [address] Performed By: #### 2 4323-8 #### [facility] CLIA [id number] [address] [place] [address] [place] Chloride [Moles/Vol] 102 mmol/L Normal 98-107 [facility] Comment on above: Order Comment: Speci men Type: BLOOD SPECIMEN Ordering Facility: [facility] Address: [address] [place] [address] Performed By: #### 2 4323-8 #### [facility] CLIA [id number] [address] [place] [address] [place] CO2 [Moles/Vol] 22 mmol/L Normal 22-30 [facility] Comment on above: Order Comment: Speci men Type: BLOOD SPECIMEN Ordering Facility: [facility] Address: [address] [place] [address] Performed By: #### 2 4323-8 #### [facility] CLIA [id number] [address] [place] [address] [place] Creatinine [Mass/Vol] 0.73 mg/dL Normal 0.58-0.96 [facility] Comment on above: Order Comment: Speci men Type: BLOOD SPECIMEN Ordering Facility: [facility] Address: [address] [place] [address] Performed By: #### 2 4323-8 #### [facility] CLIA [id number] [address] [place] [address] [place] Creatinine and Glomerular filtration rate.predicted panel (S/P/Bld) 93 mL/min/1.73m??? Normal >=60 [facility] Comment on above: Order Comment: Gisele monique Type: BLOOD SPECIMEN Ordering Facility: [facility] Address: [address] [place] [address] Result Comment: Katalina mated Glomerular Filtration Rate [...] GFR. Performed By: #### 2 4323-8 #### [facility] [id number] [address] [place] [address] [place] Glucose [Mass/Vol] 104 mg/dL High 74-99 [facility] Comment on above: Order Comment: Gisele monique Type: BLOOD SPECIMEN Ordering Facility: [facility] Address: [address] [place] [address] Result Comment: The [place] Diabetes Association (ADA) provides guidance for cutoff [...] Standards of Medical Care in Diabetes 2016, [place] [employer] Association. Diabetes Care. 2016.39(Suppl 1). Performed By: #### 2 4323-8 #### [facility] [id number] [address] [place] [address] [place] Potassium [Moles/Vol] 4.6 mmol/L Normal 3.7-5.1 [facility] Comment on above: Order Comment: Speci men Type: BLOOD SPECIMEN Ordering Facility: [facility] Address: [address] [place], [place] [address] Performed By: #### 2 4323-8 #### [facility] CLIA [id number] [address] [place] [address] [place] Protein [Mass/Vol] 6.8 g/dL Normal 6.3-8.0 [facility] Comment on above: Order Comment: Speci men Type: BLOOD SPECIMEN Ordering Facility: [facility] Address: [address] [place], [place] [address] Performed By: #### 2 4323-8 #### [facility] [id number] [address] [place] [address] [place] Sodium [Moles/Vol] 137 mmol/L Normal 136-144 [facility] Comment on above: Order Comment: Speci men Type: BLOOD SPECIMEN Ordering Facility: [facility] Address: [address] [place] [address] Performed By: #### 2 4323-8 #### [facility] [id number] [address] [place] [address] [place] Urea nitrogen [Mass/Vol] 13 mg/dL Normal 7-21 [facility] Comment on above: Order Comment: Speci men Type: BLOOD SPECIMEN Ordering Facility: [facility] Address: [address] [place] [address] Performed By: #### 2 4323-8 #### [facility] [id number] [address] [place] [address] [place] DBT Breast - bilateral jeferson barrett 06-01-2024 IMPRESSION: NEGATIVE There is no mammographic evidence of malignancy. A 1 year screening mammogram is recommended. Ji Contreras M.D. ns/yariel:06/01/2024 10:32:45 Figurine Maker(s): RT Mahad(Lashell)(M), [facility] letter sent: Normal over 40 Mammogram BI-RADS: [...] Health, Family Medicine, and Medical/Surgical Oncology, the [facility] has carefully reviewed the data and reached [...] their providers when to stop screening mammograms. Sap Bi Developer: Yariel Transcribe Date/Time: Jun 01 2024 8:44A Dictated by: JI CONTRERAS MD This examination was interpreted and the report reviewed and electronically signed by: JI CONTRERAS MD on Jun 01 2024 10:32AM [facility] DIVISION OF RADIOLOGY * * *Final Report* * * DATE OF EXAM: Jun 01 2024 8:56AM [facility] 0582 - [facility] SCREENING W MARILYN / PROCEDURE REASON: Encounter for screening mammogram for breast cancer * * * * Physician Interpretation * * * * RESULT: #[id number] - DO SCREENING W MARILYN BILATERAL DIGITAL [...] made to exams dated: 11/15/2021 mammogram - [facility] and 07/23/2019 mammogram - [facility]. The breasts are heterogeneously dense, which may obscure small masses. No significant masses, calcifications, or other findings are seen in either breast. There has been no significant interval change. DIVISION OF RADIOLOGY Provider, [facility] - 06/01/2024 * * *Final Report* * * DATE OF EXAM: Jun 01 2024 8:56AM [facility] 0582 - DO SCREENING W MARILYN / PROCEDURE REASON: Encounter for screening mammogram for breast cancer * * * * Physician Interpretation * * * * RESULT: #[id number] - DO SCREENING W MARILYN BILATERAL DIGITAL [...] made to exams dated: 11/15/2021 mammogram - [facility] and 07/23/2019 mammogram - [facility]. The breasts are heterogeneously dense, which may obscure small masses. No significant masses, calcifications, or other findings are seen in either breast. There has been no significant interval change. IMPRESSION IMPRESSION: NEGATIVE There is no mammographic evidence of malignancy. A 1 year screening mammogram is recommended. Ji linton/yariel:06/01/2024 10:32:45 Figurine Maker(s): RT Mahad(Lashell)(M), [facility] letter sent: Normal over 40 Mammogram BI-RADS: [...] Health, Family Medicine, and Medical/Surgical Oncology, the [facility] has carefully reviewed the data and reached [...] their providers when to stop screening mammograms. Sap Bi Developer: Yariel Transcribe Date/Time: Jun 01 2024 8:44A Dictated by: JI CONTRERAS MD This examination was interpreted and the report reviewed and electronically signed by: JI CONTRERAS MD on Jun 01 2024 10:32AM EST [facility] Radiology Study observation (narrative) Kobi oliver [facility] DBT Breast - bilateral scree ningOrdered By: [facility] Provider on 06-01-2024 [facility] Lipid 1996 panelon 4 Cholesterol [Mass/Vol] 216 mg/dL High <200 [facility] Comment on above: Order Comment: Gisele monique Type: BLOOD SPECIMEN Ordering Facility: [facility] Address: [address] [place] [address] Result Comment: <200 mg/dL, Desirable 200-239 mg/dL, Borderline high >239 mg/dL, High Performed By: #### 2 4331-1 #### [facility] CLIA [id number] [address] [place] [address] [place] [facility] CLIA [id number] [address] [place] [address] [place] #### 3016-3 #### [facility] CLIA [id number] [address] [place] [address] [place] Cholesterol in HDL [Mass/Vol] 71 mg/dL Normal >39 [facility] Comment on above: Order Comment: Gisele monique Type: BLOOD SPECIMEN Ordering Facility: [facility] Address: [address] [place] [address] Result Comment: 40-5 9 mg/dL, Acceptable >59 mg/dL, High: Negative risk factor for coronary heart disease <40 mg/dL, Low: Positive risk factor for coronary heart disease Performed By: #### 2 4331-1 #### [facility] CLIA [id number] [address] [place] [address] [place] [facility] CLIA [id number] [address] [place] [address] [place] #### 3016-3 #### [facility] CLIA [id number] [address] [place] [address] [place] Cholesterol in LDL [Mass/Vol] 126 mg/dL High <100 [facility] Comment on above: Order Comment: Speci men Type: BLOOD SPECIMEN Ordering Facility: [facility] Address: [address] [place] [address] Result Comment: <100 mg/dL, Optimal 100-129 mg/dL, Near optimal/above optimal 130-159 mg/dL, Borderline high 160-189 mg/dL, High >189 mg/dL, Very high Secondary prevention optimal LDL Cholesterol levels are recommended to be < 70 mg/dL Performed By: #### 2 4331-1 #### [facility] CLIA [id number] [address] [place] [address] [place] [facility] CLIA [id number] [address] [place] [address] [place] #### 3016-3 #### [facility] CLIA [id number] [address] [place] [address] [place] Cholesterol in LDL/Cholesterol in HDL [Mass ratio] 1.77 {ratio} Normal <2.54 [facility] Comment on above: Order Comment: Speci men Type: BLOOD SPECIMEN Ordering Facility: [facility] Address: [address] [place] [address] Result Comment: Refe rence: 1. National Cholesterol Education Program ATP III Guideline At-A-Glance Quick Desk Reference: National Heart, Lung, and Blood [place]. National Institutes of Health. 2001: NIH Publication No. 01-3305. 2. An International Atherosclerosis Society position paper: global recommendations for the management of dyslipidemia: executive summary, Atherosclerosis. 2014: 232(2):410-413. Performed By: #### 2 4331-1 #### [facility] CLIA [id number] [facility] [place] [address] [place] [facility] CLIA [id number] [address] [place] [address] [place] #### 3016-3 #### [facility] CLIA [id number] [address] [place] [address] [place] Cholesterol in VLDL [Mass/Vol] 19 mg/dL Normal <30 [facility] Comment on above: Order Comment: Speci men Type: BLOOD SPECIMEN Ordering Facility: [facility] Address: [address] [place] [address] Performed By: #### 2 4331-1 #### [facility] CLIA [id number] [address] [place] [address] [place] [facility] CLIA [id number] [address] [place] [address] [place] #### 3016-3 #### [facility] CLIA [id number] [address] [place] [address] [place] Cholesterol non HDL [Mass/Vol] 145 mg/dL High <130 [facility] Comment on above: Order Comment: Speci men Type: BLOOD SPECIMEN Ordering Facility: [facility] Address: [address] [place] [address] Result Comment: <130 mg/dL, Optimal 130-159 mg/dL, Near optimal/above optimal 160-189 mg/dL, Borderline high 190-219 mg/dL, High >219 mg/dL, Very high Secondary prevention optimal non HDL Cholesterol levels are recommended to be <100 mg/dL Performed By: #### 2 4331-1 #### [facility] CLIA [id number] [address] [place] [address] [place] [facility] CLIA [id number] [address] [place] [address] [place] #### 3016-3 #### [facility] CLIA [id number] [address] [place] [address] [place] Cholesterol.total/Reena sterol in HDL [Mass ratio] 3.04 {ratio} Normal <5.10 [facility] Comment on above: Order Comment: Speci men Type: BLOOD SPECIMEN Ordering Facility: [facility] Address: [address] [place] [address] Performed By: #### 2 4331-1 #### [facility] CLIA [id number] [address] [place] [address] [place] [facility] CLIA [id number] [address] [place] [address] [place] #### 3016-3 #### [facility] CLIA [id number] [address] [place] [address] [place] FASTING TIME 13 hrs Normal [facility] Comment on above: Order Comment: Speci men Type: BLOOD SPECIMEN Ordering Facility: [facility] Address: [address] [id number] Performed By: #### 2 4331-1 #### [facility] CLIA [id number] [address] [place] [address] [place] [facility] CLIA [id number] [address] [place] [address] [place] #### 3016-3 #### [facility] CLIA [id number] [address] [place] [address] [place] Triglyceride [Mass/Vol] 95 mg/dL Normal <150 [facility] Comment on above: Order Comment: Speci men Type: BLOOD SPECIMEN Ordering Facility: [facility] Address: [address] [place] [address] Result Comment: <150 mg/dL, Normal 150-199 mg/dL, Borderline high 200-499 mg/dL, High >499 mg/dL, Very high Performed By: #### 2 4331-1 #### [facility] CLIA [id number] [address] [place] [address] [place] [facility] CLIA [id number] [address] [place] [address] [place] #### 3016-3 #### [facility] CLIA [id number] [address] [place] [address] [place] DO SCREENING W TOMOon 06-01 DO SCREENING W MARILYN * * *Final Report* * * DATE OF EXAM: Jun 01 2024 8:56AM [facility] 0582 - DO SCREENING W MARILYN / PROCEDURE REASON: Encounter for screening mammogram for breast cancer * * * * Physician Interpretation * * * * RESULT: #[id number] - DO SCREENING W MARILYN BILATERAL DIGITAL [...] made to exams dated: 11/15/2021 mammogram - [facility] and 07/23/2019 mammogram - [facility]. The breasts are heterogeneously dense, which may obscure small masses. No significant masses, calcifications, or other findings are seen in either breast. There has been no significant interval change. IMPRESSION: NEGATIVE There is no mammographic evidence of malignancy. A 1 year screening mammogram is recommended. Ji linton/yariel:06/01/2024 10:32:45 Figurine Maker(s): Eleni Lezama RT(R)(M), [facility] letter sent: Normal over 40 Mammogram BI-RADS: [...] Health, Family Medicine, and Medical/Surgical Oncology, the [facility] has carefully reviewed the data and reached [...] their providers when to stop screening mammograms. Sap Bi Developer: Yariel Transcribe Date/Time: Jun 01 2024 8:44A Dictated by: JI CONTRERAS MD This examination was interpreted and the report reviewed and electronically signed by: JI CONTRERAS MD on Jun 01 2024 10:32AM EST [id number] Normal [facility] TSH SerPl-aCncon 06-01-2024 TSH Qn 1.390 m[IU]/L Normal 0.270-4.200 [facility] Comment on above: Order Comment: Speci men Type: BLOOD SPECIMEN Ordering Facility: [facility] Address: [address] [place] [address] Performed By: #### 2 4331-1 #### [facility] CLIA [id number] [address] [place] [address] [place] [address] [place] [facility] CLIA [id number] [address] [place] [id number] [place] #### 3016-3 #### [facility] CLIA [id number] [address] [place] [address] [address] [place] Tiffany 05-28-2024 BISHNUN Telephone (OBGYWM) Alona KIRAN MARCH ([id number]) 1960 F Date Time Provider Department 05/28/24 CINDI STOVER OBGYWM During your visit today, we recorded the following information about you: Cindi Stover APRN.CNP 05/28/2024 1:10 PM Signed SW pt-- pap LSIL and HPV+, will need colp. Order filed. Cindi Stover APRN.Tere Joe LPN 05/28/2024 2:39 PM Signed Patient notified Allergies As of Date: 05/28/2024 Noted Allergy Reaction GRASS POLLEN 07/26/2005 5 - Intolerance POLLEN 07/26/2005 5 - Intolerance RAGWEED 07/26/2005 5 - Intolerance Date Reviewed: 05/18/2024 Reviewed by: Adelaida Morrow MA - Fully Assessed Reason for Visit: Results [95] Primary Visit Diagnosis:LGSIL on Pap smear of cervix [R87.612] Order(s):COLPOSCOPY [[id number]] Order #: [id number] Prescriptions as of 06/18/2024 - LORATADINE (CLARITIN [...] Encounter Status:Closed by CINDI STOVER on 06/18/24 Normal [facility] CNOVon 05-18-2024 CNOV Office Visit (OBGYWM ) Alona KIRAN ESTHER ([id number]) 1960 F Date Time Provider Department 05/18/24 2:40 PM NIURKA FRANCOIS OBGYWShilo During your visit today, we recorded the following information about you: Blood pressure Weight Height 100/64 71 kg 1.549 m Niurka Francois MD 05/18/2024 3:29 PM 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 Gravity Flow History Comments: Sexual Activity: Yes; Male; Postmenopausal [...] external genitalia normal, normal Bartholin's glands, urethra, [place]'s glands, no vulvar lesions, no cervical lesions, [...] one year or sooner as needed Niurka Francois, Allergies As of Date: 05/18/2024 Noted Allergy Reaction GRASS POLLEN 07/26/2005 5 - Intolerance POLLEN 07/26/2005 5 - Intolerance RAGWEED 07/26/2005 5 - Intolerance Date Reviewed: 05/18/2024 Reviewed by: Adelaida Morrow MA - Fully Assessed Reason for Visit: Well Woman [1463] Primary Visit Diagnosis:Encounter for gynecological examination (general) (routine) without abnormal findings (more content not included)... Normal [facility] HIGH RISK HUMAN PAPILLOMA DEQUAN (HPV), PCR FOR DETECTION AND GENOTYPINGon 05-18-2024 HPV 16 Ag Ql (Unsp spec) Not detected Normal Not detected [facility] Comment on above: Order Comment: Speci men Type: BLOOD SPECIMEN Ordering Facility: [facility] Address: [address] [place] [address] Performed By: #### 2 4331-1 #### [facility] CLIA [id number] [address] [place] [address] [place] [address] [place] [facility] CLIA [id number] [address] [place] [address] [place] #### 3016-3 #### [facility] CLIA [id number] [address] [place] [address] [place] HPV 18 Ag Ql (Unsp spec) Not detected Normal Not detected [facility] Comment on above: Order Comment: Speci men Type: BLOOD SPECIMEN Ordering Facility: [facility] Address: [address] [place] [address] Performed By: #### 2 4331-1 #### [facility] CLIA [id number] [address] [place] [address] [place] [facility] CLIA [id number] [address] [place] [address] [place] #### 3016-3 #### [facility] CLIA [id number] [address] [place] [address] [place] HPV 31+33+35+39+45+51+52+56 +58+59+66+68 DNA ALEX+probe Ql (Cvx) Detected Abnormal Not detected [facility] Comment on above: Order Comment: Speci men Type: BLOOD SPECIMEN Ordering Facility: [facility] Address: [address] [place] [address] Result Comment: High Risk HPV Other Type includes HPV types 31, 33, 35, 39, 45, 51, 52, 56, 58, 59, 66 and 68. Performed By: #### 2 4331-1 #### [facility] CLIA [id number] [address] [place] [address] [place] [facility] CLIA [id number] [address] [place] [address] [place] #### 3016-3 #### [facility] CLIA [id number] [address] [place] [address] [place] PAP TESTon 05-18-2024 ADEQUACY Satisfactory for interpretation. Normal [facility] Comment on above: Order Comment: Speci men Type: BLOOD SPECIMEN Ordering Facility: [facility] Address: [address] [place] [address] Performed By: #### 2 4331-1 #### [facility] CLIA [id number] [address] [place] [address] [place] [facility] CLIA [id number] [address] [place] [address] [place] #### 3016-3 #### [facility] CLIA [id number] [address] [place] [address] [place] CASE REPORT Normal [facility] Comment on above: Order Comment: Speci men Type: BLOOD SPECIMEN Ordering Facility: [facility] Address: [address] [place] [address] Result Comment: Gyne cologic Cytology Report Case: [id number] Authorizing Provider: Niurka Francois MD Collected: 05/18/2024 03:34 PM Ordering Location: OB/Gynecology Received: 05/18/2024 04:55 PM First Screen: [place], [place], ASCP Pathologist: Rima Dempsey MD Specimen: Pap Test, ThinPrep, Cervix Performed By: #### 2 4331-1 #### [facility] CLIA [id number] [address] [place] [address] [place] [facility] CLIA [id number] [address] [place] [address] [place] #### 3016-3 #### [facility] CLIA [id number] [address] [place] [address] [place] CLINICAL HISTORY, CYTOLOGY, SHIRT PRESSER Routine Exam Normal [facility] Comment on above: Order Comment: Speci men Type: BLOOD SPECIMEN Ordering Facility: [facility] Address: [address] [place] [address] Result Comment: Post Menopausal Performed By: #### 2 4331-1 #### [facility] CLIA [id number] [address] [place] [id number] [place] [facility] CLIA [id number] [address] [place] [address] [place] #### 3016-3 #### [facility] CLIA [id number] [address] [place] [address] [place] CYTOLOGY PAP OTHER INT Predominance of coccobacilli consistent with shift in vaginal cooper Normal [facility] Comment on above: Order Comment: Speci men Type: BLOOD SPECIMEN Ordering Facility: [facility] Address: [address] [place] [address] Performed By: #### 2 4331-1 #### [facility] CLIA [id number] [address] [place] [address] [place] [facility] CLIA [id number] [address] [place] [address] [place] #### 3016-3 #### [facility] CLIA [id number] [address] [place] [address] [place] FINAL PERFORMING LAB Normal [facility] Comment on above: Order Comment: Speci men Type: BLOOD SPECIMEN Ordering Facility: [facility] Address: [address] [place] [address] Result Comment: Tech nical component, copyholder screening performed at [facility], [address] [place] [address] CLIA# [id number] Diagnostic interpretation performed at [facility], [address] [place] [address] CLIA# [id number] Dining Room Attendant Cafeteria: Rima Dempsey M.D. Performed By: #### 2 4331-1 #### [facility] CLIA [id number] [address] [place] [address] [place] [facility] CLIA [id number] [address] [place] [address] [place] #### 3016-3 #### [facility] CLIA [id number] [address] [place] [address] [place] HPV REFLEX Yes HPV Normal [facility] Comment on above: Order Comment: Speci men Type: BLOOD SPECIMEN Ordering Facility: [facility] Address: [address] [place] [address] Performed By: #### 2 4331-1 #### [facility] CLIA [id number] [address] [place] [address] [place] [facility] CLIA [id number] [address] [place] [address] [place] #### 3016-3 #### [facility] CLIA [id number] [address] [place] [address] [place] INTERPRETATION, CYTOLOGY, SHIRT PRESSER Abnormal [facility] Comment on above: Order Comment: Speci men Type: BLOOD SPECIMEN Ordering Facility: [facility] Address: [address] [place] [address] Result Comment: Low grade squamous intraepithelial lesion (LSIL). Performed By: #### 2 4331-1 #### [facility] CLIA [id number] [address] [place] [address] [place] [facility] CLIA [id number] [address] [place] [address] [place] #### 3016-3 #### [facility] CLIA [id number] [address] [place] [address] [place] PAP DISCLAIMER COMMENT The Pap Smear is a screening test for cervical cancer. False negative results occur with all screening tests, emphasizing the need for rescreening at recommended intervals, and clinical correlation. Normal [facility] Comment on above: Order Comment: Speci men Type: BLOOD SPECIMEN Ordering Facility: [facility] Address: [address] [place] [address] Performed By: #### 2 4331-1 #### [facility] CLIA [id number] [address] [place] [address] [place] [facility] CLIA [id number] [address] [place] [address] [place] #### 3016-3 #### [facility] CLIA [id number] [address] [place] [address] [place] PAP GENERAL CATEGORIZATION Epithelial Cell Abnormality Normal [facility] Comment on above: Order Comment: Speci men Type: BLOOD SPECIMEN Ordering Facility: [facility] Address: [address] [place] [address] Performed By: #### 2 4331-1 #### [facility] CLIA [id number] [address] [place] [address] [place] [facility] CLIA [id number] [place] [address] [place] #### 3016-3 #### [facility] CLIA [id number] [address] [place] [address] [place] PAP [employer] INSTRUCTOR COMMENT This specimen has been analyzed by the ThinPrep Imaging System, an automated imaging and review system, which assists the laboratory in evaluating cells on ThinPrep Pap tests. Following automated imaging, selected herrera from every slide are reviewed by a copyholder. Normal [facility] Comment on above: Order Comment: Speci men Type: BLOOD SPECIMEN Ordering Facility: [facility] Address: [address] [place] [address] Performed By: #### 2 4331-1 #### [facility] CLIA [id number] [address] [place] [address] [place] [facility] CLIA [id number] [address] [place] [id number] [place] [address] [place] #### 3016-3 #### [facility] CLIA [id number] [address] [place] Laboratory - Microbiology an d Antimicrobial susceptibilityon 05-17-2022 SARS-CoV-2 (COVID-19) RNA ALEX+probe Ql (Unsp spec) Not detected Not Detect [facility] Work Phone: Comment on above: Normal Reference Ran ge: Not DetectedMethod:(RT-PCR) real-time reverse transcriptase PCRLuminex FRANCISCO J Instrument*The Food and Drug Administration (FDA) has issued an Emergency Use Authorization (EAU) for the FRANCISCO J SARS-CoV-2 Assay for the rapid detection of the virus that causes COVID-19. This test has been validated, but the FDAs independent review of this validation is pending.*Negative [...] Ql (Unsp spec) Not detected Not Detect [facility] Work Phone: Comment on above: Normal Reference Ran ge: Not DetectedMethod:(RT-PCR) real-time reverse transcriptase PCRLuminex FRANCISCO J Instrument*The Food and Drug Administration (FDA) has issued an Emergency Use Authorization (EAU) for the FRANCISCO J SARS-CoV-2 Assay for the rapid detection of the virus that causes COVID-19. This test has been validated, but the FDAs independent review of this validation is pending.*Negative [...] Informationon 02-19 POC SARS CoV-2 Antigen Negative [facility] Work Phone: Vital Signs Date Time Vital Sign Value Performing Clinician Faci lity 04-01-2025 10:45-0400 Body temperature 98.3 [degF] Sergei Coates PA Work Phone: [facility] 04-01-2025 10:45-0400 Diastolic blood pressure 80 mm[Hg] Sergei Coates PA Work Phone: [facility] 04-01-2025 10:45-0400 Heart rate 79 /min Sergeicitlali Coates PA Work Phone: [facility] 04-01-2025 10:45-0400 Respiratory rate 16 /min Sergeicitlali Coates PA Work Phone: [facility] 04-01-2025 10:45-0400 SaO2% (BldA) [Mass fraction] 95 % Sergeicitlali Coates PA Work Phone: [facility] 04-01-2025 10:45-0400 Systolic blood pressure 122 mm[Hg] Sergei Coates PA Work Phone: [facility] 06-29-2024 15:14-0400 Body mass index (BMI) [Ratio] 29.25 kg/m2 Niurka Francois MD Work Phone: [facility] 06-29-2024 15:14-0400 Body weight 70.22 kg Niurka Francois MD Work Phone: [facility] 06-29-2024 15:14-0400 Diastolic blood pressure 72 mm[Hg] Niurka Francois MD Work Phone: [facility] 06-29-2024 15:14-0400 Systolic blood pressure 110 mm[Hg] Niurka Francois MD Work Phone: [facility] 05-18-2024 15:12-0400 Body height 154.9 cm Niurka Francois MD Work Phone: [facility] 05-18-2024 15:12-0400 Body mass index (BMI) [Ratio] 29.59 kg/m2 Niurka Francois MD Work Phone: [facility] 05-18-2024 15:12-0400 Body weight 71.03 kg Niurka Francois MD Work Phone: [facility] 05-18-2024 15:12-0400 Diastolic blood pressure 64 mm[Hg] Niurka Francois MD Work Phone: [facility] 05-18-2024 15:12-0400 Systolic blood pressure 100 mm[Hg] Niurka Francois MD Work Phone: [facility] 02-19-2022 08:32-0400 Body temperature 98.6 [degF] Dr. Hemal Cortez Work Phone: [facility] Work Phone: 02-19-2022 08:32-0400 Diastolic blood pressure 72 mm[Hg] Dr. Hemal Cortez Work Phone: [facility] Work Phone: 02-19-2022 08:32-0400 Heart rate 78 /min Dr. Hemal Cortez Work Phone: [facility] Work Phone: 02-19-2022 08:32-0400 Respiratory rate 16 /min Dr. Hemal Cortez Work Phone: [facility] Work Phone: 02-19-2022 08:32-0400 SaO2% (BldA) [Mass fraction] 96 % Dr. Hemal Cortez Work Phone: [facility] Work Phone: 02-19-2022 08:32-0400 Systolic blood pressure 126 mm[Hg] Dr. Hemal Cortez Work Phone: [facility] Work Phone: Encounters Encounter Date Encounter Type Care Provider Facility Start: 04-01-2025 End: 04-01-2025 ambulatory Sergei SABA Work Phone: [facility] Work Phone: Start: 04-01-2025 End: 04-01-2025 Patient encounter procedure Sergei SABA -Laboratory Specimen Work Phone: Start: 04-01-2025 End: 04-01-2025 Patient encounter procedure Sergei SABA [facility] Work Phone: Start: 04-01-2025 End: 04-01-2025 ambulatory Sergei SABA [facility] Work Phone: Start: 04-01-2025 End: 04-01-2025 ambulatory Sergei SABA Facility:[facility] Start: 09-04-2024 End: 09-04-2024 ambulatory Sergei SABA Facility:[facility] Start: 09-04-2024 End: 09-04-2024 ambulatory Sergei SABA Facility:[facility] Start: 06-29-2024 End: 06-29-2024 ambulatory CINDI ARLINGTON Facility:[facility] Start: 06-29-2024 End: 06-29-2024 Patient encounter procedure Niurka Francois MD Work Phone: OB/Gynecology Comment on above: Pap smear abnormalit y of cervix with LGSIL (Primary Dx); Vaginal high risk human papillomavirus (HPV) DNA test positive Start: 06-01-2024 End: 06-02-2024 Documentation procedure Mammography Coordinator [facility] Department Start: 06-01-2024 End: 06-02-2024 Letter encounter Mammography Coordinator [facility] Department Start: 06-01-2024 End: 06-01-2024 ambulatory NIURKA FRANCOIS Facility:[facility] Start: 06-01-2024 Encounter for gynecological examination (general) (routine) without abnormal findings CINDI STOVER [facility] Start: 06-01-2024 Patient encounter procedure CINDI STOVER [facility] Start: 06-01-2024 End: 06-01-2024 Subsequent hospital visit by physician Screen Mammo [facility] Mammogram Comment on above: Encounter for screen ing mammogram for breast cancer [Z12.31] Start: 05-28-2024 End: 06-18-2024 Telephone encounter Cindi Stover DEBROAH Work Phone: OB/Gynecology Comment on above: Results Start: 05-18-2024 End: 05-18-2024 ambulatory NIURKA FRANCOIS Facility:[facility] Start: 05-18-2024 End: 05-18-2024 Patient encounter procedure Niurka Francois MD Work Phone: OB/Gynecology Comment on above: Encounter for gyneco logical examination (general) (routine) without abnormal findings (Primary Dx); Encounter for screening for human papillomavirus (HPV); Pap smear for cervical cancer screening; Encounter for screening mammogram for breast cancer; Well woman exam Start: 05-18-2024 End: 05-18-2024 Patient encounter status Niurka Francois MD Work Phone: [facility] Start: 05-17-2022 End: 05-17-[address] Hemal Cortez Work Phone: [facility]-Laboratory, Specimen Start: 05-15-2022 End: 05-15-[address] Hemal Cortez Work Phone: [facility]-Laboratory, Specimen Start: 02-19-2022 End: 02-19-[address] [facility] Date Procedure Procedure Detail Performing Clinician Start: 04-01-2025 Urine culture Sergei SABA Work Phone: Start: 06-29-2024 Level iv surg pathol ogy [...] RSV Vaccine (1 - 1-dose 75+ series) [facility] Start: 06-01-2029 Lipid panel Lipid Screening [facility] Start: 06-01-2027 Diabetes Screening Diabetes Screenin g [facility] Start: 06-01-2025 Screening for malign ant neoplasm of breast Mammogram Screening [facility] Start: 05-24-2025 End: 05-24-2025 Patient encounter procedure 05/24/2025 4:00 PM EDT Office Visit OB/Gynecology [address] [place] [id number] Niurka Francois MD [address] [place] [id number] Annual OB/Gynecology Comment on above: Annual Start: 05-18-2025 Screening for malign ant neoplasm of cervix Cervical Cancer Screening [facility] Start: 06-29-2024 End: 06-29-2024 Patient encounter procedure 06/29/2024 3:20 PM EDT Office Visit OB/Gynecology [address] [place] [phone] Niurka Francois MD [address] [place] [address] colp OB/Gynecology Comment on above: col Start: 06-14-2024 Covid-19 Vaccine ( season) Covid-19 Vaccine ( season) [facility] Start: 06-14-2024 Covid-19 Vaccine ( season) Covid-19 Vaccine ( season) [facility] Start: 06-14-2024 Influenza vaccination Influenza Vacc ine (#1) [facility] Start: 06-08-2024 End: 06-08-2024 Patient encounter procedure 06/08/2024 1:10 PM EDT Office Visit OB/Gynecology [address] [place] [phone] Niurka Francois MD [address] [place] [address] colp OB/Gynecology Comment on above: colp Start: 06-01-2024 End: 06-01-2024 Patient encounter procedure 06/01/2024 9:10 AM EDT Appointment Mammogram [address] [place] [address] Encounter for screening mammogram for breast cancer [Z12.31] Mammogram Comment on above: Encounter for screen ing mammogram for breast cancer [Z12.31] Start: 05-18-2024 End: 08-17-2024 CBC panel - Blood by Automated count COMPLETE BLOOD COUNT Lab Routine Encounter for gynecological examination (general) (routine) without abnormal findings Well woman exam Expected: 05/18/2024, Expires: 08/17/2024 [facility] Comment on above: Expected: 05/18/2024 , Expires: 08/17/2024 Start: 05-18-2024 End: 08-17-2024 Comprehensive metabolic 2000 panel - Serum or Plasma COMPREHENSIVE METABOLIC PANEL Lab Routine Encounter for gynecological examination (general) (routine) without abnormal findings Well woman exam Expected: 05/18/2024, Expires: 08/17/2024 [facility] Comment on above: Expected: 05/18/2024 , Expires: 08/17/2024 Start: 05-18-2024 End: 08-17-2024 Lipid 1996 panel - Serum or Plasma LIPID PANEL BASIC Lab Routine Encounter for gynecological examination (general) (routine) without abnormal findings Well woman exam Expected: 05/18/2024, Expires: 08/17/2024 [facility] Comment on above: Expected: 05/18/2024 , Expires: 08/17/2024 Start: 05-18-2024 End: 08-17-2024 Thyrotropin [Units/volume] in Serum or Plasma THYROID STIMULATING HORMONE Lab Routine Encounter for gynecological examination (general) (routine) without abnormal findings Well woman exam Expected: 05/18/2024, Expires: 08/17/2024 [facility] Comment on above: Expected: 05/18/2024 , Expires: 08/17/2024 Start: 07-31-2023 Screening for malign ant neoplasm of colon [facility] Start: 06-14-2023 Covid-19 Vaccine ( season) Covid-19 Vaccine () [facility] Start: 11-15-2022 Screening for malign ant neoplasm of breast Mammogram Screening [facility] Start: 11-15-2022 Screening for malign ant neoplasm of cervix Cervical Cancer Screening [facility] Start: 2020 RSV Vaccine (1 - 1-d ose 60+ series) RSV Vaccine (1 - 1-dose 60+ series) [facility] Start: 07-31-2018 Screening for malign ant neoplasm of colon Sigmoidoscopy [facility] Start: 2010 Shingrix Vaccine (1 of 2) Shingrix Vaccine (1 of 2) [facility] Start: 2005 Diabetes Screening Diabetes Screenin g [facility] Start: 2005 Lipid panel Lipid Screening [facility] Start: 2005 Screening for malign ant neoplasm of colon [facility] Start: 1979 Urine microalbumin profile DTaP,Tdap,Td Vaccine (1 - Tdap) [facility] Start: 1978 Anxiety Screening Anxiety Screening [facility] Start: 1978 Depression Screening Depression Scre ening [facility] Start: 1978 Hepatitis C screening Hepatitis C Sc reening [facility] Start: 1978 HIV screening HIV Screening [facility] Start: 1966 Pneumococcal vaccination Pneumococcal Vaccine (1 of 2 - PCV) [facility] COLPOSCOPY COLPOSCOPY Proce dures Routine LGSIL on Pap smear of cervix Ordered: 05/28/2024 [facility] Work Phone: Comment on above: Ordered: 05/28/2024 COLPOSCOPY COLPOSCOPY Proce dures Routine Pap smear abnormality of cervix with LGSIL Vaginal high risk human papillomavirus (HPV) DNA test positive Ordered: 06/29/2024 [facility] Work Phone: Comment on above: Ordered: 06/29/2024 End: 06-17-2025 DBT Breast - bilateral screening DO SCREENING W MARILYN Radiology Routine Encounter for screening mammogram for breast cancer 1 Occurrences starting 05/18/2024 until 06/17/2025 [facility] Work Phone: Comment on above: 1 Occurrences starti ng 05/18/2024 until 06/17/2025 PAP TEST PAP TEST Lab [facility] Encounter for gynecological examination (general) (routine) without abnormal findings Encounter for screening for human papillomavirus (HPV) Pap smear for cervical cancer screening 05/18/2024 3:34 PM EDT [facility] Immunizations Immunization Date Immunization Notes Care Provider Karen girard 08-07-2019 influenza virus vacc ine, unspecified formulation Niurka Francois MD Work Phone: [facility] Payers Date Payer Category Payer Self-pay [id number] 2021 Private Health Insurance ded [id number] 2021 Private Health Insurance [id number] 2011 Unknown [id number] Unknown [facility] [id number] Unknown [facility] [id number] Unknown [id number] Unknown [id number] Unknown [id number] Unknown [id number] Social History Date Type Detail Facility Start: 02-19-2022 [facility] Work Phone: Start: 09-06-2021 None [facility] Start: 1960 Sex Assigned At Female W [facility] Start: 12-05-2023 End: 05-18-2024 Tobacco smoking status NHIS Smokes tobacco daily [facility] History of tobacco use Cigarette Smoker C [facility] Start: 05-18-2024 End: 06-29-2024 Cigarettes smoked current (pack per day) - Reported 0.5 [facility] Start: 05-18-2024 End: 06-29-2024 Tobacco use and exposure Smokeless tobacco non-user [facility] Start: 05-18-2024 End: 06-29-2024 Alcohol intake Current drinker of alcohol (finding) [facility] Start: 05-18-2024 End: 06-29-2024 Tobacco use panel [facility] National Score (1-10 0), lower number is lower risk 35 [facility] Start: 1960 Sex Assigned At Not on file C [facility] Clinical Notes 05-18-2024 to 04-01-2025 Note Date & Type Note Facility 04-01-2025 Evaluation note Diagnosis Onset Date Resolution Dysuria acute April 01 10:44am [facility] Work Phone: 1(886) 899-426309-16-2024 NoteHNO ID: [id number] Author: NIURKA FRANCOIS MD Service: ? Author Type: Physician Type: Progress Notes Filed: 07/06/2024 08:18 Note Text: Computer Network And Systems Engineer offered: Patient declines. Esther is a 63 [...] and written material given to the patient. [facility] History of Present illness Narrative* Niurka Francois MD - 06/29/2024 3:10 PM EDT Computer Network And Systems Engineer offered: Patient declines. Esther is a 63 [...] patient. Niurka Francois DO documented in this encounterRegency [facility]09-16-2024 Instructions* Patient Instructions* Adelaida Morrow MA - 06/29/2024 3:10 PM [...] can be some complications. You may feel faintduring and shortly after the procedure as well as have some bleeding and vaginal discharge after the procedure. There is also a risk of infection after the procedure. These complications are rare andcan be easily treated. You should contact you doctor is you have any of the following: - Heavy bleeding (more than your normal period) - Bleeding with clots - Severe abdominal pain - Fever (more than 100.4F) - Foul smelling vaginal discharge RESULTS If a biopsy was taken, we will have the results of your biopsy in 1-2 weeks. If you do not hear theresults of your biopsy after 2 weeks, please [...] number of partners and use condoms to reduceyour risks of STDs. If you have any additional questions, please contact your doctor's office. documented in this encounterRegency [facility]08-19-2024 Note* Letter - Coordinator, Mammography - 06/01/2024 10:32 AM EDT June 01, 2024 PID: [id number] Alona Kiran [address] [place] [address] Dear Ms. Kiran, We are pleased to inform you that the results of your recent breast imaging exam on 06/01/2024 are normal. Breast tissue can be either dense or not dense. Dense tissue makes it harder to find breast cancer on a mammogram and also raises the risk of developing breast cancer. Your breast tissue is dense. Insome people with dense tissue, other imaging tests [...] report will be kept on file at [facility] as part of your permanent medical record and are available for your continuing care. Thank you for allowing us to help in meeting your health care needs. Sincerely, Dr. Contreras Interpreting Radiologist [facility] (Normal over 40) [facility]08-19-2024 Miscellaneous Notes* Letter - Coordinator, Mammography - 06/01/2024 10:32 AM EDT June 01, 2024 PID: [id number] Alona Kiran [address] [place] [address] Dear Ms. Kiran, We are pleased to inform you that the results of your recent breast imaging exam on 06/01/2024 are normal. Breast tissue can be either dense or not dense. Dense tissue makes it harder to find breast cancer on a mammogram and also raises the risk of developing breast cancer. Your breast tissue is dense. Insome people with dense tissue, other imaging tests [...] report will be kept on file at [facility] as part of your permanent medical record and are available for your continuing care. Thank you for allowing us to help in meeting your health care needs. Sincerely, Dr. Contreras Interpreting Radiologist [facility] (Normal over 40) documented in this encounterRegency Hospital [facility]08-19-2024 History of Present illness Narrative* Eleni Lezama Mammo Tariq - 06/01/2024 9:10 AM EDT Radiology Service Progress Note PATIENT NAME: Alona Kiran DATE OF SERVICE: June 01, 2024 TIME: 8:57 AM PATIENT IDENTITY VERIFICATION COMPLETED USING TWO (2) IDENTIFIERS: Name and Date of confirmedby patient verbally. FALL SCREENING: Has the patient had 2 falls in the last year or 1 fall with injury or currently using an Ambulatory Assistive Device (Walker, Cane, Wheelchair, Crutches, etc.)? No PATIENT GENDER DATA: Female. status: : No status: NO. PATIENT RELEVANT IMPLANT DATA REVIEWED: Not Applicable PATIENT PRESENTS WITH AN IMPLANTABLE OR ATTACHED HOUSEKEEPING LAUNDRY WORKER: No RADIOLOGY DEPARTMENT: Mammography PERIPHERAL IV DATA: Not applicable SIGNED BY: Faisal Tobin June 01, 2024 8:57 AM documented in this encounterRegency Hospital [facility]08-19-2024 NoteHNO ID: [id number] Author: ELENI LEZAMA Mammo Tech Service: ? Author Type: Platform Power Technician Type: Progress Notes Filed: 06/01/2024 08:57 Note [...] PATIENT PRESENTS WITH AN IMPLANTABLE OR ATTACHED HOUSEKEEPING LAUNDRY WORKER: No RADIOLOGY DEPARTMENT: Mammography PERIPHERAL IV DATA: Not applicable SIGNED BY: Faisal Tobin June 01, 2024 8:57 [facility]08-15-2024 Telephone encounter Note* Telephone Encounter - Tere Calderón LPN - 05/28/2024 2:38 PM EDT Patient notified [facility]08-15-2024 Miscellaneous Notes* Telephone Encounter - Tere Calderón LPN - 05/28/2024 2:38 PM EDT Patient notified * Telephone Encounter - Cindi Stover APRN.CNP - 05/28/2024 1:09 PM EDT SW pt-- pap LSIL and HPV+, will need colp. Order filed. Cindi Stover APRN.CNP documented in this encounterRegency Hospital [facility]08-15-2024 Telephone encounter Note * Telephone Encounter - Cindi Stover APRN.CNP - 05/28/2024 1:09 PM EDT SW pt-- pap LSIL and HPV+, will need colp. Order filed. Cindi Stover APRN.CNP [facility]08-05-2024 NoteHNO ID: [id number] Author: NIURKA FRANCOIS MD Service: ? Author Type: Physician Type: Progress Notes Filed: 05/18/2024 15:29 Note Text: Computer Network And Systems Engineer offered: Patient declines. 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 [employer] History Comments: Sexual Activity: Yes; Male; Postmenopausal [...] Comment: 2003: ENTEROLSS FRING INTSTINAL ADHESION SPX 1--: HEMORRHOIDECTOMY INT AND XTRNL 2/> COLUMN/MIRIAM Comment: [...] external genitalia normal, normal Bartholin's glands, urethra, [place]'s glands, no vulvar lesions, no cervical lesions, [...] up one year or sooner as needed [facility] History of Present illness Narrative* Niurka Francois MD - 05/18/2024 3:09 PM EDT Computer Network And Systems Engineer offered: Patient declines. 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 Gravity Flow History Comments: Sexual Activity: Yes; Male; Postmenopausal [...] external genitalia normal, normal Bartholin's glands, urethra, [place]'s glands, no vulvar lesions, no cervical lesions, [...] or sooner as needed Niurka Francois DO [facility]* Diagnosis Onset Date Resolution Status Aphthous ulcer of mouth acut e Contact with or suspected ex posure to other viral communicable disease acute URI (upper respiratory infection) [facility] Work Phone: Evaluation note* Diagnosis Encounter for [...] health care facility documented in [facility]* Diagnosis Encounter for screening mammogram for breast cancer documented in this encounter [facility] note* Diagnosis LGSIL on Pap smear of cervix- Primary documented in this encounter [facility] note* Diagnosis Pap smear abnormality of cervix with LGSIL- Primary 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) Vaginal high risk human papillomavirus (HPV) DNA test positive documented in this encounter [facility] noteNo assessment information availableRidgecrest [facility] Work Phone: Reason for referral (narrative)* Diagnostic Procedure Only (Routine) - Authorized Specialty Diagnoses / Procedures Referred By Adam t Referred To Contact [facility] Diagnoses Encounter for screening mammogram for breast cancer Procedures DO SCREENING W MARILYN SCREENING DIGITAL BREAST TOMOSYNTHESIS BI SCREENING MAMMOGRAPHY BI 2-VIEW BREAST INC CAD Niurka Francois MD [address] [place] [address] [facility] [address] [place] [address] Referral ID Status Reason Start Date Expiration Date Visits Requested Visits Authorized [id number] Authorized Auto-Generat ed Referral 05/18/2024 06/17/2025 1 1 [facility] for referral (narrative)* Diagnostic Procedure Only (Routine) - Closed Specialty Diagnoses / Procedures Referred By Adam sena Referred To Contact [facility] Diagnoses Encounter for screening mammogram for breast cancer Procedures DO SCREENING W MARILYN SCREENING DIGITAL BREAST TOMOSYNTHESIS BI SCREENING MAMMOGRAPHY BI 2-VIEW BREAST INC CAD Niurka Francois MD [address] [facility] [place] [address] [facility] [address] [place] [address] Referral ID Status Reason Start Date Expiration Date V isits Requested Visits Authorized [id number] Closed Auto-Generate d Referral 05/18/2024 06/17/2025 1 1 [facility] for referral (narrative)* Outpatient Procedure (Routine) - Authorized Specialty Diagnoses / Procedures Referred By Adam sena Referred To Contact [facility] Diagnoses LGSIL on Pap smear of cervix Procedures COLPOSCOPY COLPOSCOPY CERVIX BX CERVIX & ENDOCRV CURRETAGE COLPOSCOPY ENTIRE VAGINA W/CERVIX IF PRESENT Cindi Stover APRN.CNP [address] [place] [address] Niurka Francois MD [address] [facility] [place] [address] Referral ID Status Reason Start Date Expiration Date Visits Requested Visits Authorized [id number] Authorized Auto-Generat ed Referral 06/08/2024 09/06/2024 1 1 [facility] for referral (narrative)* Outpatient Procedure (Routine) - New Request Specialty Diagnoses / Procedures Referred By Adam sena Referred To Contact [facility] Diagnoses Pap smear abnormality of cervix with LGSIL Vaginal high risk human papillomavirus (HPV) DNA test positive Procedures COLPOSCOPY COLPOSCOPY CERVIX BX CERVIX & ENDOCRV CURRETAGE Niurka Francois MD [address] [place] [address] [facility] [address] [place] [address] Referral ID Status Reason Start Date Expiration Date Visits Requested Visits Authorized [id number] New Request Auto-Generat ed Referral 06/29/2024 06/29/2025 1 1 [facility]Reason for referral (narrative)No reason for referral information availableErie [facility] Services Work Phone: Reason for visit Narrative* Diagnostic Procedure Only (Routine) - Closed Specialty Diagnoses / Procedures Referred By Adam sena Referred To Contact [facility] Diagnoses Encounter for screening mammogram for breast cancer Procedures DO SCREENING W MARILYN SCREENING DIGITAL BREAST TOMOSYNTHESIS BI SCREENING MAMMOGRAPHY BI 2-VIEW BREAST INC CAD Niurka Francois MD [address] [place] [address] [facility] [address] [place] [address] Referral ID Status Reason Start Date Expiration Date V isits Requested Visits Authorized [id number] Closed Auto-Generate d Referral 05/18/2024 06/17/2025 1 1 [facility] Chief Complaint and Reason for Visit Chief Complaint COVID TEST/SYMPTOMAT IC Fever, unspecified Reason for Visit Aphthous ulcer of mo uth Contact with or suspected exposure to other viral communicable disease URI (upper respiratory infection) Chief Complaint Admit Date concern for uti April 01, 2025 10:4 4am Chief Complaint Admit Date concern for uti April 01, 2025 10:4 4am INT ORDER FOR LABSPEC April 01, 2025 12 :13pm Reason for Visit Admit Date Dysuria April 01, 2025 10:4 4am Family History No Family History Records Found Relationship Condition Age at Onset Recorded Date/T scott mother Malignant neoplasm Unknown father Malignant neoplasm Unknown Summary Purpose Advance Directives No Advanced Directives Records FoundNo Advanced Directives Records Found Additional Source Comments Goals (unrecognized section and content) Goals may be documented in a n alternate sectionGoals may be documented in an alternate sectionGoals may be documented in an alternate section Source Comments (unrecognize d section and content) In the event this informatio n is protected by the Federal Confidentiality of Alcohol and Drug Abuse Patient Records regulations: The Federal rules restrict any use of the information to criminally investigate or prosecute any alcohol or drug abuse patient.[facility]In the event this information is protected by the Federal Confidentiality of Alcohol and Drug Abuse Patient Records regulations: The Federal rules restrict any use of the information to criminally investigate or prosecute any alcohol or drug abuse patient.[facility] EastIn the event this information is protected by the Federal Confidentiality of Alcohol and Drug Abuse Patient Records regulations: The Federal rules restrict any use of the information to criminally investigate or prosecute any alcohol or drug abuse patient.[facility] EastIn the event this information is protected by the Federal Confidentiality of Alcohol and Drug Abuse Patient Records regulations: The Federal rules restrict any use of the information to criminally investigate or prosecute any alcohol or drug abuse patient.[facility] EastIn the event this information is protected by the Federal Confidentiality of Alcohol and Drug Abuse Patient Records regulations: The Federal rules restrict any use of the information to criminally investigate or prosecute any alcohol or drug abuse patient.[facility] Reason for Visit (unrecogniz ed section and content) Reason Comments Well Woman Reason Comments Results Reason Comments Colposcopy Specialty Diagnoses / Procedures Referred By Adam t Referred To Contact [facility] Diagnoses LGSIL on Pap smear of cervix Procedures COLPOSCOPY COLPOSCOPY CERVIX BX CERVIX & ENDOCRV CURRETAGE COLPOSCOPY ENTIRE VAGINA W/CERVIX IF PRESENT Cindi Stover, JOVANI.ENTERPRISE ANALYST [address] [place] [address] Niurka Francois MD [address] [place] [address] Referral ID Status Reason Start Date Expiration Date V isits Requested Visits Authorized [id number] Closed Auto-Generate d Referral 06/08/2024 09/06/2024 1 1 Care Teams (unrecognized sec tion and content) Director Religious Education Relationship Specialty Start Date End Date Hemal Garcia MD [address] [place], [place] [id number] PCP - General 11/12/03 Director Religious Education Relationship Specialty Start Date End Date Hemal Garcia MD [address] [address] PCP - General 11/12/03 Director Religious Education Relationship Specialty Start Date End Date Hemal Garcia MD [address] [place] [address] PCP - General 11/12/03 Director Religious Education Relationship Specialty Start Date End Date Hemal Garcia MD [address] [place] [address] PCP - General 11/12/03 06/02/24 Cj Gann MD [address] [facility] [address] [place], [place] [address] PCP - General Internal Medicine 06/03/24 Director Religious Education Relationship Specialty Start Date End Date Cj Gann MD [address] [facility] [address] [place], [place] [address] PCP - General Internal Medicine 06/03/24 Team Status: Active Member Role Status Dates Dr. Hemal Garcia MD Family Provider Active Team Status: Inactive Member Role Status Dates WANDY Eng Attending Provider Active Sta rt: April 01, 2025 End: April 01, 2025 Team Status: Inactive Member Role Status Dates WANDY Eng Attending Provider Active Sta rt: April 01, 2025 End: April 01, 2025 WANDY Eng Referring Provider Active Sta rt: April 01, 2025 End: April 01, 2025 INFORMATION SOURCE (unrecogn ized section and content) DATE CREATED AUTHOR 07/07/2024 [facility] DATE CREATED AUTHOR 'S ORGANIZ ATION 04/07/[address] [facility] FOR RECORDS PERTAINING TO PATIENTS WHO [...] BE BASED ON THE PRIMARY CLINICAL RECORDS. [facility]. provides no warranty or guarantee of the accuracy or completeness of information in this document.
== END | disposition home or self-care (01) ==
LOC: MFPLAB 16:30
DX: R19.7 Diarrhea, unspecified (principal)
CPT/HCPCS: 36415; 85025; 87493; 87506